=== PATIENT | female | born 1975 | race Caucasian/White ===

== ENCOUNTER 2022-04-15 08:09 | Outpatient (REF) | payer MEDICAID, SELFPAY ==
--- NOTE | 2022-04-15 08:15 | EEG_ITS ---
The waking background activity consists of a moderate voltage 9 hertz posterior alpha frequency that is seen symmetrically and attenuates well with eye opening, while low voltage fast frequencies predominantly anteriorly. Photic stimulation is without activation. Hyperventilation was omitted. No are identified. No focal, lateralizing, or paroxysmal discharges seen. IMPRESSION: This awaking electroencephalogram is within normal limits. MD TJ Rob/VIANEY / [id number]
== END 2022-04-15 08:10 | disposition home or self-care (01) ==
LOC: HO.NEURO 08:09
PROVIDERS: Visit Provider Internal Medicine
DX: R55 Syncope and collapse (principal)
CPT/HCPCS: 95816

== ENCOUNTER → 2022-07-03 08:53 | Outpatient (BNVA) | payer OTHER, SELFPAY | PROVIDERS: PCP Internal Medicine; Visit Provider Psychiatry & Neurology Neurology | DX: G43.909 Migraine, unspecified, not intractable, without status migrainosus (principal); G93.2 Benign intracranial hypertension; R55 Syncope and collapse | CPT/HCPCS: 99212 ==

== ENCOUNTER 2022-07-13 22:43 | Inpatient (IN) | payer OTHER, SELFPAY ==
[2022-07-13 23:06] VITALS: BP 139/84; PULSE 83; RESP 18; TEMP 37; O2SAT 98; BMI 34.7
[2022-07-13 23:43] LABS: MANUAL DIFF FLAG NO
[2022-07-13 23:45] LABS: Basophils Absolute Auto 0.1 X10*3/uL (0.0-0.2); Basophils Percent Auto 0.6 % (0-2); Eosinophils Absolute Auto 0.1 X10*3/uL (0.0-0.4); Eosinophils Percent Auto 0.9 % (0-4); Hematocrit 38.8 % (37.0-47.0); Hemoglobin 12.4 g/dl (12.0-16.0); Imm Gran Abs Auto 0.03 X10*3/uL (0.00-0.03); Imm Gran Pct Auto 0.2 % (0.0-0.4); Lymphocytes Absolute Auto 5.2 X10*3/uL (1.2-4.9); Lymphocytes Percent Auto 41.8 % (20-40); Mean Corpuscular Volume 81.3 fL (80.0-98.0); Mean Platelet Volume 9.5 fL (9.4-12.3); Monocytes Absolute Auto 0.7 X10*3/uL (0.1-1.2); Monocytes Percent Auto 5.9 % (2-11); Neutrophils Absolute Auto 6.2 x10*3/uL (2.0-8.3); Neutrophils Percent Auto 50.6 % (45-73); Platelet Count 337 X10*3/uL (160-400); Red Blood Count 4.77 X10*6/uL (4.20-5.50); Red Cell Distribution Width 17.3 % (11.0-16.0); SCAN SMEAR FLAG 1; White Blood Count 12.3 X10*3/uL (4.8-10.8)
[2022-07-13 23:56] LABS: COVID-19 Test Negative (Negative); IDNOW Serial# 6674DD1D
[2022-07-14] LABS: Alanine Aminotransferase 12 U/L (0-31); Albumin Level 4.2 g/dL (3.5-5.0); Alkaline Phosphatase 54 U/L (39-117); Amphetamine Screen Urine Not Detected (Not Detect); Anion Gap 13 (12-20); Aspartate Amino Transferase 18 U/L (5-31); Barbiturates, Urine Not Detected (Not Detect); Benzodiazepines Screen Urine Not Detected (Not Detect); Bilirubin Total 0.4 mg/dL (0.0-1.0); Blood Urea Nitrogen 6 mg/dL (9-16); Calcium 9.3 mg/dL (8.4-10.2); Cannabinoid Screen Urine Not Detected (Not Detect); Carbon Dioxide 27 mmol/L (22-29); Chloride 106 mmol/L (96-108); Cocaine Screen Urine POSITIVE (Not Detect); Creatinine Clr Calc Pharmacy 121.7; Estimated Glomerular Filt Rate > 60; Ethanol 149 mg/dL; Fentanyl, urine Not Detected (Not Detect); Glucose Random 94 mg/dL (60-115); Opiate Screen Urine Not Detected (Not Detect); Phencyclidine Screen Urine Not Detected (Not Detect); Potassium 4.3 mmol/L (3.3-5.1); Sodium 142 mmol/L (135-145); Total Protein 6.8 g/dL (6.5-8.0)
--- NOTE | 2022-07-14 | ECG_ITS ---
Test Reason : QT INTERVAL Blood Pressure : / mmHG Vent. Rate : 077 BPM Atrial Rate : 077 BPM P-R Int : 132 ms QRS Dur : 076 ms QT Int : 400 ms P-R-T Axes : 068 022 060 degrees QTc Int : 452 ms Normal sinus rhythm Normal ECG No previous ECGs available Referred By: Lloyd Greenwood Electronically Signed By:ANNALISE NAIDU
[2022-07-14 05:37] VITALS: BP 110/69; PULSE 87; RESP 16; TEMP 36.8; O2SAT 98
[2022-07-14 07:51] LABS: Appearance Urine Clear; Color Urine Yellow; Glucose Urine UA Negative (Negative); Leukocyte Esterase Urine Trace (Negative); Nitrite Urine Negative (Negative); UMIC TRIGGER UA YES; Urine Blood Small (1+) (Negative); Urine Ketones Negative (Negative); Urine Protein Negative (Neg-Trace)
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
[2022-07-14 08:09] LABS: Bacteria Urine None Seen (None Seen); Hyaline Casts Urine 0-2 /LPF (0-2); RBC Urine 0-2 /HPF (0-2); Squamous Epithelial Cell Urine 0-2 /HPF (0-2); WBC Urine 0-5 /HPF (0-5)
--- NOTE | 2022-07-14 11:58 | PHA.MEDREC ---
Pharmacy Consult ? Medication Reconciliation Pharmacy has completed the medication reconciliation. Pt had to be lead to remember names of meds but she was able to confirm what they were when I read claim history. She remembers getting dose of aimovig 2 weeks ago and states nurtec is every other day NEEDED.
--- NOTE | 2022-07-14 13:17 | MHC.RECOVSUP ---
Met with pt in [facility] to provide and review recovery resources. Pt had no other questions or concerns at this time.
[2022-07-14] MEDS: Nicotine Polacrilex 2 MG GUM BUCCAL (17:38)
[2022-07-14 20:35] VITALS: BP 138/89; PULSE 70; RESP 17; TEMP 37.1; O2SAT 98
[2022-07-14 22:20] VITALS: BP 130/74; PULSE 70; RESP 18; TEMP 36.7; O2SAT 100
[2022-07-14] MEDS: acetaZOLAMIDE 250 MG TABLET 500 MG PO (23:49)
[2022-07-14] MEDS: Thiamine HCL 100 MG TABLET PO (23:50)
[2022-07-14] MEDS: Gabapentin 300 MG CAPSULE PO (23:50)
[2022-07-14] MEDS: hydrOXYzine HCL 25 MG TABLET PO (23:51)
[2022-07-14] MEDS: Amitriptyline HCl 50 MG TABLET PO (23:51)
[2022-07-14] MEDS: lamoTRIgine 25 MG TABLET 50 MG PO (23:51)
[2022-07-14] MEDS: Cyclobenzaprine HCl 10 MG TABLET PO (23:51)
[2022-07-14] MEDS: Ferrous Sulfate 324 MG TABLET.DR PO (23:56)
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
[2022-07-15] MEDS: Acetaminophen 325 MG TABLET 650 MG PO (05:18)
[2022-07-15 05:36] LABS: Estimated Average Glucose 100 mg/dL; Hemoglobin A1c % 5.1 %
[2022-07-15 05:46] LABS: Alanine Aminotransferase 8 U/L (0-31); Albumin Level 3.3 g/dL (3.5-5.0); Alkaline Phosphatase 46 U/L (39-117); Anion Gap 11 (12-20); Aspartate Amino Transferase 12 U/L (5-31); Bilirubin Total 0.4 mg/dL (0.0-1.0); Blood Urea Nitrogen 11 mg/dL (9-16); Calcium 9.1 mg/dL (8.4-10.2); Carbon Dioxide 27 mmol/L (22-29); Chloride 109 mmol/L (96-108); Cholesterol 167 mg/dL; Creatinine Clr Calc Pharmacy 97.3; Estimated Glomerular Filt Rate > 60; Glucose Fasting 105 mg/dL (60-99); HDL Cholesterol 62 mg/dL; LDL Cholesterol Calculated 94 mg/dl; Sodium 143 mmol/L (135-145); Total Protein 5.3 g/dL (6.5-8.0); Triglycerides 55 mg/dL
[2022-07-15 06:15] LABS: Folate 4.9 ng/mL (> or = 4.0); Thyroid Stimulating Hormone 0.95 uIU/mL (0.32-4.0); Vitamin B12 446 pg/mL (200-900)
[2022-07-15 08:15] VITALS: BP 126/58; PULSE 71; RESP 20; TEMP 36.4; O2SAT 100
[2022-07-15] MEDS: LORazepam 1 MG TABLET PO ×2 (08:31→17:57)
[2022-07-15] MEDS: lamoTRIgine 25 MG TABLET 50 MG PO ×2 (08:32→22:11)
[2022-07-15] MEDS: lamoTRIgine 25 MG TABLET 150 MG PO (08:32)
[2022-07-15] MEDS: acetaZOLAMIDE 250 MG TABLET 500 MG PO ×2 (08:34→22:09)
[2022-07-15] MEDS: Thiamine HCL 100 MG TABLET PO (08:35)
[2022-07-15] MEDS: ARIPiprazole 2 MG TABLET PO (08:35)
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
[2022-07-15 11:38] VITALS: BP 114/55; PULSE 70; RESP 18; O2SAT 98
[2022-07-15 22:03] VITALS: BP 141/80; PULSE 78; TEMP 36.6; O2SAT 97
[2022-07-15] MEDS: Gabapentin 300 MG CAPSULE PO (22:09)
[2022-07-15] MEDS: Cyclobenzaprine HCl 10 MG TABLET PO (22:10)
[2022-07-15] MEDS: Amitriptyline HCl 50 MG TABLET PO (22:11)
[2022-07-15] MEDS: Ferrous Sulfate 324 MG TABLET.DR PO (22:12)
[2022-07-16 04:10] VITALS: BP 103/57; PULSE 88
[2022-07-16 08:33] VITALS: BP 109/74; PULSE 74; RESP 18; TEMP 36.2; O2SAT 99
[2022-07-16] MEDS: Thiamine HCL 100 MG TABLET PO (08:34)
[2022-07-16] MEDS: acetaZOLAMIDE 250 MG TABLET 500 MG PO ×2 (08:34→20:45)
[2022-07-16] MEDS: ARIPiprazole 2 MG TABLET PO (08:34)
[2022-07-16] MEDS: Acetaminophen 325 MG TABLET 650 MG PO ×2 (08:59→20:45)
[2022-07-16] MEDS: lamoTRIgine 25 MG TABLET 50 MG PO ×2 (09:00→20:46)
[2022-07-16] MEDS: lamoTRIgine 25 MG TABLET 150 MG PO (09:00)
[2022-07-16] MEDS: Milk of Magnesia 30 ML ORAL.SUSP PO (10:55)
[2022-07-16 18:00] VITALS: BP 122/74; PULSE 73; RESP 16; TEMP 36.6; O2SAT 99
[2022-07-16] MEDS: hydrOXYzine HCL 25 MG TABLET PO (20:44)
[2022-07-16] MEDS: Cyclobenzaprine HCl 10 MG TABLET PO (20:47)
[2022-07-16] MEDS: Amitriptyline HCl 50 MG TABLET PO (20:47)
[2022-07-16] MEDS: Ferrous Sulfate 324 MG TABLET.DR PO (20:47)
[2022-07-16] MEDS: Gabapentin 300 MG CAPSULE PO (20:47)
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
--- NOTE | 2022-07-16 22:44 | PC.NURSE ---
Joanna is admitted to [facility] for safety, observation and stabilization, diagnosis Bipolar disorder. This evening she is noted to be visible in the milieu, social with peers. Receptive to 1:1 engagement, reports I'm going home tomorrow. I'm nervous because my boyfriend keeps calling me. States she will be going to stay with family. CIWA score 6, denies SI/AVH. No behavior issues. POC as outlined, 15 min unit safety observation.
[2022-07-17 08:20] VITALS: BP 128/84; PULSE 84; TEMP 36.4; O2SAT 100
[2022-07-17] MEDS: lamoTRIgine 25 MG TABLET 150 MG PO (08:24)
[2022-07-17] MEDS: lamoTRIgine 25 MG TABLET 50 MG PO (08:25)
[2022-07-17] MEDS: acetaZOLAMIDE 250 MG TABLET 500 MG PO (08:25)
[2022-07-17] MEDS: hydrOXYzine HCL 25 MG TABLET PO (08:26)
[2022-07-17] MEDS: ARIPiprazole 2 MG TABLET PO (08:26)
[2022-07-17] MEDS: Thiamine HCL 100 MG TABLET PO (08:26)
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
== END 2022-07-17 10:43 | disposition home or self-care (01) | DRG 885 ==
LOC: HO.ED 07-14 16:29 → HO.PADLT16 07-14 22:02
PROVIDERS: Emergency Medicine Emergency Medical Services; Admitting Provider Social Worker; Emergency Provider Emergency Medicine; PCP Internal Medicine; Visit Provider Social Worker
DX: F33.1 Major depressive disorder, recurrent, moderate (principal); R45.851 Suicidal ideations; F17.210 Nicotine dependence, cigarettes, uncomplicated; Z20.822 Contact with and (suspected) exposure to COVID-19; Y90.6 Blood alcohol level of 120-199 mg/100 ml; F10.229 Alcohol dependence with intoxication, unspecified; Z71.6 Tobacco abuse counseling; Z88.2 Allergy status to sulfonamides; Z79.899 Other long term (current) drug therapy
CPT/HCPCS: 36415; 80053; 80061; 80307; 81001; 82607; 82746; 83036; 84443; 85025; 87635; 93005; 99285; S9485

== ENCOUNTER 2022-10-13 10:17 | Outpatient (REF) | payer OTHER, SELFPAY ==
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
== END 2022-10-13 10:18 | disposition home or self-care (01) ==
LOC: HO.XRAY 10:17
PROVIDERS: PCP Internal Medicine; Visit Provider Internal Medicine
DX: T14.90XA Injury, unspecified, initial encounter (principal); M54.9 Dorsalgia, unspecified; M54.2 Cervicalgia; V89.2XXA Person injured in unspecified motor-vehicle accident, traffic, initial encounter; Y93.9 Activity, unspecified; Y92.9 Unspecified place or not applicable; Y99.9 Unspecified external cause status
CPT/HCPCS: 72052; 72072; 72100

== ENCOUNTER 2022-10-16 10:27 | Outpatient (AMB) | payer OTHER, SELFPAY ==
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
[2022-10-16 10:35] VITALS: BP 118/78; PULSE 71; O2SAT 98; BMI 37.5
== END 2022-10-16 10:48 | disposition home or self-care (01) ==
PROVIDERS: Visit Provider Psychiatry & Neurology Neurology
DX: G43.909 Migraine, unspecified, not intractable, without status migrainosus (principal); G93.2 Benign intracranial hypertension
CPT/HCPCS: 99214

== ENCOUNTER → 2022-10-16 10:27 | Outpatient (BNVA) | payer MEDICAID, SELFPAY | PROVIDERS: Visit Provider Psychiatry & Neurology Neurology | DX: G43.909 Migraine, unspecified, not intractable, without status migrainosus (principal); G93.2 Benign intracranial hypertension; Z79.899 Other long term (current) drug therapy | CPT/HCPCS: 99212 ==

== ENCOUNTER 2023-02-12 08:22 | Outpatient (AMB) | payer OTHER, SELFPAY ==
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
[2023-02-12 08:34] VITALS: BP 132/76; PULSE 89; RESP 16; O2SAT 99; BMI 37.4
== END 2023-02-12 08:55 | disposition home or self-care (01) ==
PROVIDERS: PCP Internal Medicine; Visit Provider Psychiatry & Neurology Neurology
DX: G43.909 Migraine, unspecified, not intractable, without status migrainosus (principal); G93.2 Benign intracranial hypertension
CPT/HCPCS: 99214

== ENCOUNTER → 2023-02-12 08:22 | Outpatient (BNVA) | payer MEDICAID, SELFPAY | PROVIDERS: PCP Internal Medicine; Visit Provider Psychiatry & Neurology Neurology | DX: G43.909 Migraine, unspecified, not intractable, without status migrainosus (principal); G93.2 Benign intracranial hypertension | CPT/HCPCS: 99212 ==

== ENCOUNTER 2024-03-01 07:08 | Emergency (ER) | payer OTHER, SELFPAY ==
--- NOTE | ~2024-03-01 | CT_ITS ---
EXAMINATION: CT ABDOMEN AND PELVIS WITHOUT AND WITH CONTRAST CLINICAL INFORMATION: Abdominal pain, nausea and vomiting, anemia. COMPARISON: None available. TECHNIQUE: Multidetector volumetric imaging was performed of the abdomen and pelvis before and after the IV administration of 80 mL of Omnipaque 350 intravenous contrast. Sagittal and coronal reformatted images were obtained on the technologist's workstation. GI bleeding protocol acquisitions were obtained. This CT examination was performed using dose optimization techniques as appropriate, variously including the following: *Automated exposure control *Adjustment of mA and/or kV according to patient size (this includes techniques or standardized protocols for targeted exams where dose is matched to indication/reason for exam; i.e. extremities or head) *Use of iterative reconstruction technique DLP: 2127 mGy-cm FINDINGS: LUNG BASES: -Lung bases are clear. -There is a moderate sized type I hiatus hernia present LIVER, GALLBLADDER, AND BILIARY TREE: The liver is normal in size, shape, and attenuation. No focal hepatic lesion or biliary ductal dilatation is present. The gallbladder is unremarkable with no evidence of radiopaque gallstones, gallbladder wall thickening, or obvious pericholecystic inflammatory changes. PANCREAS: Unremarkable SPLEEN: Unremarkable ADRENAL GLANDS: Unremarkable KIDNEYS AND URETERS: The kidneys are normal in size, shape, and attenuation. No hydronephrosis, hydroureter, or calculi seen. No perinephric stranding. BLADDER: Unremarkable GASTROINTESTINAL TRACT: -There is been a gastric sleeve procedure. -There is mild thickening of the distal esophagus, and a moderate-sized type I hiatus hernia present. -There is no evidence of active or delayed bleeding from the colon or other part of the GI tract. -The small bowel is normal. -No evidence of appendicitis. -The colon and rectum are otherwise normal. ABDOMINAL WALL: No significant hernia is appreciated. LYMPH NODES: Normal VASCULAR: Unremarkable PELVIC VISCERA: Unremarkable OSSEOUS STRUCTURES: -No suspicious lytic or blastic bone lesions. -There are bone islands in the left medial ilium and right femoral neck. -Mild to moderate bilateral hip joint degenerative changes. -Mild spinal degenerative changes. CT/CT gi bleed abd pel wo/w IVcon IMPRESSION: 1. No evidence of acute or delayed bleeding in the GI tract on this examination. 2. No acute findings in the abdomen or pelvis. 3. Post gastric sleeve procedure with a moderate type I hiatal hernia. Mild thickening of the distal esophagus may indicate reflux esophagitis. 4. Additional ancillary findings as discussed. Electronically signed by: Bennie Ferrer MD 03/01/2024 12:07 PM [facility]
[2024-03-01 07:12] VITALS: BP 127/78; BP 133/78; PULSE 72; PULSE 83; RESP 18; TEMP 36.9; O2SAT 100; BMI 38.7
[2024-03-01 07:16] VITALS: BP 133/78; PULSE 83; RESP 18; TEMP 36.9; O2SAT 100
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
[2024-03-01] MEDS: 0.9 % Sodium Chloride 1,000 ML 999 ML IV (07:23)
[2024-03-01] MEDS: ondansetron HCL 4 MG/2 ML VIAL IVPUSH (07:25)
[2024-03-01 07:45] LABS: Appearance Urine Clear; Color Urine Yellow; Glucose Urine UA Negative (Negative); Leukocyte Esterase Urine Negative (Negative); Nitrite Urine Negative (Negative); PH 6.5 (5.0-9.0); Specific Gravity - Urine 1.025 (1.005-1.025); UMIC TRIGGER UACC YES; UPreg QC Valid YES; Urine Blood Small (1+) (Negative); Urine Ketones Trace mg/dL (Negative); Urine Pregnancy NEGATIVE (NEGATIVE); Urine Protein Trace mg/dL (Neg-Trace)
[2024-03-01 07:47] LABS: Bacteria Urine 3+ (None Seen); Hyaline Casts Urine 0-2 /LPF (0-2); WBC Urine 0-5 /HPF (0-5)
[2024-03-01 07:52] LABS: MANUAL DIFF FLAG NO
[2024-03-01 07:53] LABS: Basophils Percent Auto 0.3 % (0-2); Eosinophils Percent Auto 0.1 % (0-4); Hematocrit 28.2 % (37.0-47.0); Hemoglobin 8.8 g/dl (12.0-16.0); Imm Gran Abs Auto 0.04 X10*3/uL (0.00-0.03); Imm Gran Pct Auto 0.4 % (0.0-0.4); Lymphocytes Absolute Auto 1.6 X10*3/uL (1.2-4.9); Lymphocytes Percent Auto 16.2 % (20-40); Mean Corpuscular HGB Conc 31.2 g/dl (31.0-35.0); Mean Corpuscular Hemoglobin 23.2 pg (27.0-33.0); Mean Corpuscular Volume 74.4 fL (80.0-98.0); Mean Platelet Volume 9.4 fL (9.4-12.3); Monocytes Absolute Auto 0.6 X10*3/uL (0.1-1.2); Monocytes Percent Auto 5.7 % (2-11); Neutrophils Absolute Auto 7.5 x10*3/uL (2.0-8.3); Neutrophils Percent Auto 77.3 % (45-73); Platelet Count 372 X10*3/uL (160-400); Red Blood Count 3.79 X10*6/uL (4.20-5.50); Red Cell Distribution Width 18.5 % (11.0-16.0); White Blood Count 9.7 X10*3/uL (4.8-10.8)
[2024-03-01 08:04] LABS: Anion Gap 11 (12-20)
[2024-03-01 08:11] LABS: Albumin Level 3.8 g/dL (3.5-5.0); Aspartate Amino Transferase 18 U/L (5-31); Bilirubin Total 0.3 mg/dL (0.0-1.0); Blood Urea Nitrogen 8 mg/dL (9-16); Calcium 8.9 mg/dL (8.4-10.2); Carbon Dioxide 27 mmol/L (22-29); Chloride 106 mmol/L (96-108); Creatinine Clr Calc Pharmacy 117.6; Estimated Glomerular Filt Rate > 60; Glucose Random 104 mg/dL (60-115); Lipase 11 U/L (8-78); Sodium 140 mmol/L (135-145); Total Protein 6.4 g/dL (6.5-8.0)
[2024-03-01 08:24] LABS: Alanine Aminotransferase 14 U/L (0-31); Alkaline Phosphatase 41 U/L (39-117)
[2024-03-01 08:30] LABS: Influenza A PCR NEGATIVE (Negative); Influenza B PCR NEGATIVE (Negative); Resp Syncy Virus RNA Qual PCR NEGATIVE (Negative); SARS COV2 PCR INHOUSE NEGATIVE (Negative)
--- NOTE | 2024-03-01 09:16 | PC.NURSE ---
Pt to CT for imaging.
[2024-03-01] MEDS: iohexoL 350 MG/ML 75 ML INFUS..BTL 80 ML IV (09:35)
[2024-03-01] MEDS: Acetaminophen 325 MG TABLET 975 MG PO (11:19)
[2024-03-01 12:30] VITALS: BP 139/70; PULSE 78; RESP 16; O2SAT 99
[2024-03-01 12:39] VITALS: BP 139/70; PULSE 78; RESP 16; TEMP 36.9; O2SAT 99
[2024-03-01] MEDS: Prochlorperazine Edisylate 10 MG/2 ML VIAL IVPUSH (12:53)
== END 2024-03-01 13:14 | disposition home or self-care (01) ==
PROVIDERS: Emergency Provider Student in an Organized Health Care Education/Training Program
DX: K52.9 Noninfective gastroenteritis and colitis, unspecified (principal); D64.9 Anemia, unspecified; R11.2 Nausea with vomiting, unspecified; R10.2 Pelvic and perineal pain; Z79.899 Other long term (current) drug therapy; Z03.818 Encounter for observation for suspected exposure to other biological agents ruled out
CPT/HCPCS: 0241U; 36415; 74178; 80053; 81001; 81025; 83690; 85025; 96361; 96374; 96375; 99285; J0737; J2405; Q9967

== ENCOUNTER → 2024-03-01 07:58 | Outpatient (BNV) | payer OTHER, SELFPAY | PROVIDERS: Emergency Provider Student in an Organized Health Care Education/Training Program; Visit Provider Radiology Diagnostic Radiology | DX: R10.9 Unspecified abdominal pain (principal); R11.2 Nausea with vomiting, unspecified; D64.9 Anemia, unspecified | CPT/HCPCS: 74178 ==

== ENCOUNTER 2024-11-12 11:55 | Emergency (ER) | payer BC, SELFPAY ==
--- NOTE | ~2024-11-12 | XR_ITS ---
CLINICAL HISTORY: lac to L pointer finger pad Three-view left 2nd digit Comparison: None Findings: Intra-articular fracture of the dorsal aspect of the base of the 2nd distal phalanx. Minimal displacement. No dislocation. No significant loss of joint space or osteophytes. No erosions. No radiopaque foreign body. IMPRESSION: 1. No radiopaque foreign body. 2. Intra-articular fracture at the base of the 2nd distal phalanx. This document has been electronically signed by: Magda Horton MD on 11/12/2024 13:17:16
[2024-11-12 12:00] VITALS: BP 137/66; PULSE 87; RESP 18; TEMP 36.5; O2SAT 97; BMI 39.7
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
--- OUTSIDE RECORDS SUMMARY | 2024-11-12 12:30 | XMS_ITS | Clinical Summary ---
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 10/01/2024 9:17 AM EDT 10/01/2024 9:22 AM EDT us Anthony Tam MD LAB BLOOD ORDERABLES Final Re sult [facility] [address] [place] [address] * (ABNORMAL) CBC and differential (10/01/2024 9:17 AM EDT) WBC 6.97 4.00 - 11.00 K/uL [facility] RBC 4.00 4.00 - 5.20 M/uL [facility] HGB 11.8(L) 12.0 - 16.0 g/dL [facility] HCT 37.4 36.0 - 46.0 % [facility] PLT 307 150 - 450 K/uL [facility] MCV 93.5 80.0 - 100.0 fL [facility] MCH 29.5 27.0 - 31.0 pg [facility] MCHC 31.6(L) 32.0 - 36.0 g/dL [facility] RDW 15.3(H) 11.5 - 14.5 % [facility] MPV 10.2 8.4 - 12.0 fL [facility] NRBC 0.00 0.00 /100 WBCs [facility] ABSOLUTE NRBC 0.00 0.00 K/uL [facility] DIFF METHOD Auto [facility] NEUTS 52.5 48.0 - 76.0 % [facility] LYMPHS 36.3 18.0 - 41.0 % [facility] MONOS 8.3 4.0 - 11.0 % [facility] EOS 1.9 0.0 - 5.0 % [facility] BASOS 0.7 0.0 - 1.5 % [facility] Granulocytes, immature (%) 0.3 0.0 - 0.9 % [facility] ABSOLUTE NEUTS 3.66 1.92 - 7.60 K/uL [facility] ABSOLUTE LYMPHS 2.53 0.72 - 4.10 K/uL [facility] ABSOLUTE MONOS 0.58 0.16 - 1.10 K/uL [facility] ABSOLUTE EOS 0.13 0.00 - 0.50 K/uL [facility] ABSOLUTE BASOS 0.05 0.00 - 0.15 K/uL [facility] Granulocytes, immature 0.02 0.00 - 0.09 K/uL [facility] Blood 10/01/2024 9:17 AM EDT 10/01/2024 9:22 AM EDT us Anthony Tam MD LAB BLOOD ORDERABLES Final Re sult Performing Organization Address City/[facility]/ZIP Co de Phone Number [address] [address] * Free T4 (10/01/2024 9:17 AM EDT) FREE T4 1.0 0.9 - 1.7 ng/dL [facility] Blood 10/01/2024 9:17 AM EDT 10/01/2024 9:22 AM EDT us Anthony Tam MD LAB BLOOD ORDERABLES Final Re sult Performing Organization Address [facility] Co de Phone Number [address] [address] * Magnesium (10/01/2024 9:17 AM EDT) MAGNESIUM 2.0 1.6 - 2.6 mg/dL [facility] Blood 10/01/2024 9:17 AM EDT 10/01/2024 9:22 AM EDT us Anthony Tam MD LAB BLOOD ORDERABLES Final Re sult Performing Organization Address [facility] Co de Phone Number [address] [address] * Hemoglobin A1c (10/01/2024 9:17 AM EDT) HEMOGLOBIN A1C 5.0 4.3 - 5.8 % [facility] Blood 10/01/2024 9:17 AM EDT 10/01/2024 9:22 AM EDT us Anthony Tam MD LAB BLOOD ORDERABLES Final Re sult Performing Organization Address [facility]/ZIP Co de Phone Number [address] [address] * (ABNORMAL) Folate (10/01/2024 9:17 AM EDT) FOLIC ACID 4.1(L) 4.2 - 19.9 ng/mL [facility] Blood 10/01/2024 9:17 AM EDT 10/01/2024 9:22 AM EDT us Anthony Tam MD LAB BLOOD ORDERABLES Final Re sult Performing Organization Address [facility] Co de Phone Number [address] [address] * Ferritin (10/01/2024 9:17 AM EDT) FERRITIN 27 13 - 150 ug/L [facility] Blood 10/01/2024 9:17 AM EDT 10/01/2024 9:22 AM EDT us Anthony Tam MD LAB BLOOD ORDERABLES Final Re sult Performing Organization Address [facility]/ZIP Co de Phone Number [address] [address] * Vitamin B12 (10/01/2024 9:17 AM EDT) VITAMIN B12 808 232 - 1,245 pg/mL [facility] Blood 10/01/2024 9:17 AM EDT 10/01/2024 9:22 AM EDT us Anthony Tam MD LAB BLOOD ORDERABLES Final Re sult [address] [address] * (ABNORMAL) Lipid panel (10/01/2024 9:17 AM EDT) HDL 84 mg/dL [facility] Comment: Interpretation <40 mg/dL: Low HDL cholesterol (major risk factor for CHD) Greater than or equal to 60 mg/dL: High HDL cholesterol ( negative risk factor for CHD) HDL - cholesterol is affected by a number of factors, e.g. smoking, excerise, hormones, sex and age. CHOLESTEROL 212 0 - 240 mg/dL [facility] TRIGLYCERIDES 156 30 - 160 mg/dL [facility] LDL 97 50 - 129 mg/dL [facility] Comment: LDL levels in terms of risk for coronary heart disease: <100 mg/dL: Optimal 100-129 mg/dL: Near or above optimal 130-159 mg/dL: Borderline high 160-189 mg/dL: High >190 mg/dL: Very High CARDIAC RISK RATIO 2.5(L) 3.3 - 4.4 [facility] Blood 10/01/2024 9:17 AM EDT 10/01/2024 9:22 AM EDT us Anthony Tam MD LAB BLOOD ORDERABLES Final Re sult Performing Organization Address [facility] Co de Phone Number [address] [address] * BI MAMMOGRAM SCREENING WITH TOMOSYNTHESIS WITH CAD (BILATERAL) (02/16/2023 2:22 PM EST) Anatomical Region Laterality Modality Breast Left, Breast Right, Breast Bilateral Bila teral Mammography 02/19/2023 8:21 AM EST Impressions 02/19/2023 8:27 AM EST BILATERAL BREASTS: No evidence of malignancy. Normal interval follow-up is recommended. BI-RADS: BI-RADS CATEGORY: 2 - Benign finding. DENSITY: The breast tissue is almost entirely fat. Narrative 02/19/2023 8:27 AM EST History: Breast cancer screening. STUDY: Bilateral screening mammography with tomosynthesis and CAD TECHNIQUE: Bilateral full-field digital screening mammography is obtained and read in conjunction with computer-aided detection. Tomosynthesis as well as 2-D C view imaging were obtained. COMPARISON: 02/14/2022 through 05/28/2017. FINDINGS: Breast tissue is mostly fatty replaced. There are a few scattered benign calcifications bilaterally. No suspicious interval change. No suspicious mass, concerning group of calcifications or suspicious asymmetry identified. Procedure Note Simone Greer MD - 02/19/2023 History: Breast cancer screening. STUDY: Bilateral screening mammography with tomosynthesis and CAD TECHNIQUE: Bilateral full-field digital screening mammography is obtainedand read in conjunction with computer-aided detection. Tomosynthesis aswell as 2-D C view imaging were obtained. COMPARISON: 02/14/2022 through 05/28/2017. FINDINGS: Breast tissue is mostly fatty replaced. There are a fewscattered benign calcifications bilaterally. No suspicious intervalchange. No suspicious mass, concerning group of calcifications orsuspicious asymmetry identified. IMPRESSION: BILATERAL BREASTS: No evidence of malignancy. Normal interval follow-up isrecommended. BI-RADS: BI-RADS CATEGORY: 2 - Benign finding. DENSITY: The breast tissue is almost entirely fat. Anthony Tam MD IMG MG EXAMS Final Result * Pap Smear (08/14/2021 12:00 AM EDT) 08/14/2021 08/15/2021 8:5 1 AM EDT Narrative SEE NARRATIVE - 08/20/2021 3:57 PM EDT [address] [address] Steam Meter Reader: Vanessa Troncoso MD MACHINE WORKER Cytology Report FINAL DIAGNOSIS A. PAP SMEAR (SUREPATH) CE: SPECIMEN ADEQUACY: Satisfactory for evaluation; transformation zone absent/insufficient. INTERPRETATION: NEGATIVE FOR INTRAEPITHELIAL LESION OR MALIGNANCY. Electronically Signed Out By: Patrick Toure CT(ASCP) Evi Vivar, BLAS(ASCP) The Pap test is a screening test primarily for squamous cancers and precursors and has associated false-negative and false-positive results. New technologies such as liquid-based preparations may decrease but will not eliminate all false-negative results. Regular sampling and follow-up of unexplained clinical signs and symptoms are recommended to minimize false negative results. PROCEDURES/ADDENDA HPV Testing (Requested) Ordered Date: 08/15/2021 A. PAP SMEAR (SUREPATH) CE: Human Papilloma Virus Test Negative for high-risk human papillomavirus types 16, 18, 45 and the Other high risk probe set (Includes 31, 33, 35, 39, 51, 52, 56, 58, 59, 66, 68) by gauzz Onclarity HR-HPV analysis. Clinical correlation is advised. This HPV test was performed at [facility], [address] [place] [address]. This test has been FDA approved for SurePath cervical cytology specimens. The accuracy and precision of this test for all other specimen sources has been verified in the Cytopathology Laboratory of the [facility] and has not been cleared or approved by the U.S. Food and Drug Administration. Clinical correlation is advised. CLINICAL HISTORY Date of Last Menstrual Period: 07-31-2021 Infection History: HPV: OTHER HIGH RISK, 2020 Other Clinical Conditions: Screening Pap SPECIMEN SOURCE A: PAP SMEAR (SUREPATH) CE Patient Name: JOVON MENODZA : 1975 (Age: 46) Sex: F Institution: [facility] Location: [facility] Date of Collection: 08/14/2021 Date of Reported: 08/20/2021 15:57 Results to: Gomez Cunha MD, BS us Gomez Cunha MD CYTOLOGY ORDERABLES Final Res ult SEE NARRATIVE * Hepatitis C antibody, qualitative (06/29/2020 2:43 PM EDT) HCV NON-REACTIV E NON-REACTI VE [facility] Blood 06/29/2020 2:43 PM EDT 06/29/2020 2:45 PM EDT Gomez Cunha MD LAB BLOOD ORDERABLES Final Re sult [facility] [address] [place] [address] from Last 3 Months or Most Recently Relevant to Health Maintenance Insurance [place] PPO INDEMNITY PPO INDEMNITY [facility] PPO INDEMNITY [employer]IM [employer] [facility] Care Teams Medicine Technologist Relationship Specialty Start Date End Date Anthony Tam MD [address] [place] [address] [email or web address] PCP - General Internal Medicine 11/24/19 Roge Car DO [address] [place] [address] [email or web address] Primary Oncologist Hematology and Oncology 03/24/18 Gomez Cunha MD [address] [place] [address], [address] [place] [address] ([email or web address]) [email or web address] Obstetrics and Gynecology 01/26/23 Additional Source Comments The information contained in this document represents components of the legal health record. It is not the complete legal health record.[facility]
--- OUTSIDE RECORDS SUMMARY | 2024-11-12 12:30 | XMS_ITS | Encounter Summary ---
Author Organization [facility] Address [address] [place] [address] [place] [address] Phone Care Team Providers Care Manager Concrete Name Role Phone Roge Car DO Unavailable [phone] Anthony Tam MD Primary Care Provider [phone] Gomez Cunha MD Unavailable [phone] Encounter Details Date Type Department Care Team (Late st Contact Info) Description 12/15/2022 Procedure Pass [facility], [address] [address] Social History Tobacco Use Types Packs/Day Years Used Date Smoking Tobacco: Every Day Cigarettes 0.3 15 Smokeless Tobacco: Never Comments:5 cigarettes daily (noted 07/22/22) Alcohol Use Standard Drinks/Week Comments Yes 2 (1 standard drink = 0.6 oz pur e alcohol) 1-2 drinks, 2-3 x week Child or Family Care Answer Date Record ed Do you have problems with on e of the following making it difficult for you to work, study, or receive health care? No 08/09/2020 Education Answer Date Recorded Are you interested in more education? Not on albertina e 08/15/2022 Are you concerned about learning? Not on file 08/15/2022 No 08/15/2022 No 08/15/2022 Food Answer Date Recorded Within the past 6 months we worried whether our food would run out before we got money to buy more. Never True 08/09/2020 Within the past 6 months the food we bought just didn't last and we didn't have enough money to get more. Never True Residential Stability Answer Date Recor ded What is your housing situation today? I have lidia mars 08/09/2020 How many times have you move d in the past 12 months? Zero (I did not move) 08/09/2020 06 Are you worried that in t he next 2 months, you may not have your own housing to live in? No 08/09/2020 Paying for Meds Answer Date Recorded Do you have trouble paying for medicines? No 08/09/2020 Paying Utility Bills Answer Date Record ed Do you have trouble paying your heating or elect ricity bill? No 08/09/2020 Transportation Answer Date Recorded Has the lack of transportati on kept you from medical appointments or from getting medications? No 08/09/2020 Unemployment Answer Date Recorded Are you currently unemployed or working on a part-time or temporary basis, and looking for work? No 08/09/2020 Digital Access Answer Date Recorded No 08/04/2022 No 08/04/2022 Reliable internet access at home? Not on file 08/04/2022 Device with a working camera? Not on file Comments No Sex and Gender Information Value Date Recorded Sex Assigned at Female 04/05/2017 1:36 PM EST Legal Sex Female 9:27 PM EDT Gender Identity Female 04/05/2017 1:36 PM EST Sexual Orientation Straight 04/05/2017 1: 36 PM EST documented as of this encounter Plan of Treatment Upcoming Encounters Date Type Department Care Team (Late st Contact Info) Description 01/03/2025 3:30 PM EDT Office Visit [facility] [address] [place] [address] 3rd Floor, [address] [place] [address] Vanessa Lomax, BENIGNO 22 [facility], [address] [place] [address] 01/09/2025 3:30 PM EST Office Visit [facility] [address] [place] [address] Anthony Tam MD [address] [place] [address] [email or web address] documented as of this encounter Visit Diagnoses Not on filedocumented in this encounter Additional Health Concerns Assessment Noted Time PHQ-2 Depression Total Score: 0 01/27/20 23 2:24 PM EST documented as of this encounter Care Teams Manager Concrete Relationship Specialty Start Date End Date Anthony Tam MD [address] [place] [address] [email or web address] PCP - General Internal Medicine 11/24/19 Roge Car DO [address] [place] [id number] [email or web address] Primary Oncologist Hematology and Oncology 03/24/18 Gomez Cunha MD [address] [place] [address] [email or web address] Obstetrics and Gynecology 01/26/23 documented as of this encounter Additional Source Comments The information contained in this document represents components of the legal health record. It is not the complete legal health record.[facility]
--- OUTSIDE RECORDS SUMMARY | 2024-11-12 12:30 | XMS_ITS | Encounter Summary ---
Author Organization [facility] Address [address] [place] [address] Phone Care Team Providers Care Hydraulic Press In Operator Name Role Phone Joceline Roge Ji DO Unavailable [phone] Anthony Tam MD Primary Care Provider Gomez Cunha MD Unavailable [phone] Encounter Details Date Type Department Care Team (Latest Contact Info) Description 12/15/2022 Transcribe Orders Virtual Department [address] [place] [address] Anthony Tam MD [address] [place] [address] [email or web address] Breast screening (Primary Dx) Social History Tobacco Use Types Packs/Day Years Used Date Smoking Tobacco: Every Day Cigarettes 0.3 15 Smokeless Tobacco: Never Comments:5 cigarettes daily (noted 07/22/22) Alcohol Use Standard Drinks/Week Comments Yes 4 (1 standard drink = 0.6 oz pur e alcohol) Child or Family Care Answer Date Record [...] your housing situation today? I have lidia sing 08/09/2020 How many times have you move [...] Description 01/03/2025 3:30 PM EDT Office Visit [facility] [address] [place] [address] 3rd Floor, [address] [place] [address] Vanessa Lomax, BENIGNO 22 [facility], [address] [place] [address] 01/09/2025 3:30 PM EST Office Visit [facility] [address] [place] [address] Anthony Tam MD [address] [place] [address] [email or web address] documented as of this encounter Results * BI MAMMOGRAM SCREENING WITH TOMOSYNTHESIS WITH [...] Tam MD IMG MG EXAMS Final Result documented in this encounter Visit Diagnoses Diagnosis Breast screening- Primary Breast screening, unspecified Breast screening Breast screening, unspecified documented in this encounter Additional Health Concerns Assessment Noted Time PHQ-2 Depression Total Score: 0 02/11/20 22 7:59 PM EST documented as of this encounter Care Teams Hydraulic Press In Operator Relationship Specialty Start Date End Date Anthony Tam MD [address] [place] [address] [email or web address] PCP - General Internal Medicine 11/24/19 Roge Car DO [address] [place] [address] [email or web address] Primary Oncologist Hematology and Oncology 03/24/18 Gomez Cunha MD [address] [place] [address] [address] [place] [address] [email or web address] Obstetrics and Gynecology 01/26/23 documented as of this encounter Additional Source Comments The information contained in this document represents components of the legal health record. It is not the complete legal health record.[facility]
--- OUTSIDE RECORDS SUMMARY | 2024-11-12 12:30 | XMS_ITS | Encounter Summary ---
Author Organization [facility] Address [address] [place] [address] Phone Care Team Providers Care Home Stereo Equipment Installer Name Role Phone Anthony Tam MD Primary Care Provider [phone] Anthony Tam MD Unavailable [phone] Roge Car DO Unavailable [phone] Anthony Tam MD Unavailable [phone] Anthony Tam MD Primary Care Provider [phone] Gomez Cunha MD Unavailable [phone] Encounter Details Date Type Department Care Team (Late st Contact Info) Description 04/08/2017 Procedure Pass [facility], [address] [address] Social History Tobacco Use Types Packs/Day Years Used Date Smoking Tobacco: Some Days Cigarettes 0.3 15 Smokeless Tobacco: Never Alcohol Use Standard Drinks/Week Comments No 0 (1 standard drink = 0.6 oz pur e alcohol) Comments Unknown Sex and Gender Information Value Date Recorded Sex Assigned at Female 04/05/2017 1:36 PM EST Legal Sex Female 9:27 PM EDT Gender Identity Female 04/05/2017 1:36 PM EST Sexual Orientation Straight 04/05/2017 1: 36 PM EST documented as of this encounter Plan of Treatment Upcoming Encounters Date Type Department Care Team (Late st Contact Info) Description 01/03/2025 3:30 PM EDT Office Visit [facility] [address] [place] [address] 3rd Floor, [address] [place] [address] Vanessa Lomax, BENIGNO 22 [facility], [address] [place] [address] 01/09/2025 3:30 PM EST Office Visit [facility] [address] [place], [place] [phone] Anthony Tam MD [address] [place], [place] [id number] documented as of this encounter Visit Diagnoses Not on filedocumented in this encounter Additional Health Concerns Infection Onset Date Last Indicated Resolved Time CoV-Risk 07/19/2020 07/19/2020 07/29/2020 1:24 AM EDT Assessment Noted Time PHQ-2 Depression Total Score: 0 01/20/20 17 11:33 AM EST documented as of this encounter Care Teams Home Stereo Equipment Installer Relationship Specialty Start Date End Date Anthony Tam MD [address] [place] [address] PCP - General Internal Medicine 01/19/17 11/23/19 Anthony Tam MD [address] [place] [address] PCP - General Internal Medicine 11/24/19 Anthony Tam MD [address] [place] [address] Insurance Assigned Provider 05/02/17 01/09/18 Roge Car DO [address] [place] [address] [email or web address] Primary Oncologist Hematology and Oncology 03/24/18 Anthony Tam MD [address] [place] [address] [email or web address] Insurance Assigned Provider 06/12/18 11/15/22 Gomez Cunha MD [address] [place] [address] [address] [place] [address] [email or web address] Obstetrics and Gynecology 01/26/23 documented as of this encounter Additional Source Comments The information contained in this document represents components of the legal health record. It is not the complete legal health record.[facility]
--- OUTSIDE RECORDS SUMMARY | 2024-11-12 12:30 | XMS_ITS | Encounter Summary ---
Author Organization [facility] Address [address] [place] [address] [place] [address] Phone Care Team Providers Care Horseback Riding Instructor Name Role Phone Joceline Roge Ji DO Unavailable [phone] Anthony Tam MD Primary Care Provider [phone] Gomez Cunha MD Unavailable [phone] Encounter Details Date Type Department Care Team (Late st Contact Info) Description 08/05/2024 Procedure Pass [facility] [address] [place], [place] [phone] Social History Tobacco Use Types Packs/Day Years Used Date Smoking Tobacco: Every Day Cigarettes 0.3 27.7 Started: 1996 Smokeless Tobacco: Never Comments:8 cigarettes QD-not ed 08/05/24 Alcohol Use Standard Drinks/Week Comments Yes [...] high school, GED, job training, learning the Polish language, technical skills, or developing parenting skills)? [...] learning more? Yes 01/26/2023 Our hospital collaborates [facility] community organizations that help patients sign [...] Description 01/03/2025 3:30 PM EDT Office Visit [facility] [address] [place] [address] [address]rd Floor, [address] [place] [address] Vanessa Lomax, BENIGNO [address] [address] 01/09/2025 3:30 PM EST Office Visit [facility] [address] [place] [address] Anthony Tam MD [address] [place] [address] documented as of this encounter Visit Diagnoses Not on filedocumented in this encounter Additional Health Concerns Assessment Noted Time PHQ-9 Depression Total Score: 17 025 3:06 PM EST PHQ-2 Depression Total Score: 0 08/03/19 25 2:47 PM EDT documented as of this encounter Care Teams Horseback Riding Instructor Relationship Specialty Start Date End Date Anthony Tam MD [address] [place] [address] [email or web address] PCP - General Internal Medicine 11/24/19 Roge Car DO [address] [place] [address] [email or web address] Primary Oncologist Hematology and Oncology 03/24/18 Gomez Cunha MD [address] [place] [address] [address] [place] [address] [email or web address] Obstetrics and Gynecology 01/26/23 documented as of this encounter Additional Source Comments The information contained in this document represents components of the legal health record. It is not the complete legal health record.[facility]
--- OUTSIDE RECORDS SUMMARY | 2024-11-12 12:30 | XMS_ITS | Encounter Summary ---
Author Organization [facility] Address [address] [place] [address] Phone Care Team Providers Care Electronic Instrument Trades Worker Name Role Phone Anthony Tam MD Primary Care Provider [phone] Anthony Tam MD Unavailable [phone] Roge Car DO Unavailable [phone] Anthony Tam MD Unavailable [phone] Anthony Tam MD Primary Care Provider [phone] Gomez Cunha MD Unavailable [phone] Encounter Details Date Type Department Care Team (Late st Contact Info) Description 04/17/2017 Ancillary Orders [facility] Internal Medicine [address] [place], [place] [phone] Anthony Tam MD [address] [place], [place] [id number] [email or web address] Breast screening Social History Tobacco Use Types Packs/Day Years [...] Description 01/03/2025 3:30 PM EDT Office Visit [facility] [address] [facility] 3rd Floor, [address] [place], [place] [phone] Vanessa Lomax DNP [address] [facility], [address] [place], [place] [phone] 01/09/2025 3:30 PM EST Office Visit [facility] Internal Medicine [address] [place], [place] [phone] Anthony Tam MD [address] [place], [place] [phone] documented as of this encounter Results * BI MAMMOGRAM SCREENING WITH TOMOSYNTHESIS WITH CAD (BILATERAL) (05/28/2017 9:27 AM EDT) Anatomical Region Laterality Modality Breast Left, Breast Right, Breast Bilateral Bila teral Mammography 05/28/2017 9:44 AM EDT Impressions 05/28/2017 9:46 AM EDT No mammographic evidence of malignancy. BI-RADS CATEGORY: 1 - Negative. DENSITY: The breast tissue is almost entirely fat. POS - [id number] Narrative 05/28/2017 9:46 AM EDT Standard digital full-field 2-D C view and two-plane tomographic imaging was performed with utilization of computer-aided detection. This is the patient's baseline study. The breasts are almost entirely fatty. The stromal markings are relatively symmetric in appearance and distribution and no dominant spiculated mass, suspicious clustered microcalcifications, or focal zone of pathologic skin thickening or retraction are identified. Procedure Note Armaan Mcqueen MD - 05/28/2017 Standard digital full-field 2-D C view and two-plane tomographic imagingwas performed with utilization of computer-aided detection. This is thepatient's baseline study. The breasts are almost entirely fatty. The stromal markings are relativelysymmetric in appearance and distribution and no dominant spiculated mass,suspicious clustered microcalcifications, or focal zone of pathologic skinthickening or retraction are identified. IMPRESSION: No mammographic evidence of malignancy. BI-RADS CATEGORY: 1 - Negative. DENSITY: The breast tissue is almost entirely fat. POS - [id number] Anthony Tam MD IMG MG EXAMS Final Result documented in this encounter Visit Diagnoses Diagnosis Breast screening Breast screening, unspecified Breast screening Breast screening, unspecified documented in this encounter Additional Health Concerns Infection Onset Date Last Indicated Resolved Time CoV-Risk 07/19/2020 07/19/2020 07/29/2020 1:24 AM EDT Assessment Noted Time PHQ-2 Depression Total Score: 0 01/20/20 17 11:33 AM EST documented as of this encounter Care Teams Electronic Instrument Trades Worker Relationship Specialty Start Date End Date Anthony Tam MD [address] [place] [address] PCP - General Internal Medicine 01/19/17 11/23/19 Anthony Tam MD [address] [place] [address] PCP - General Internal Medicine 11/24/19 Anthony Tam MD [address] [place] [address] Insurance Assigned Provider 05/02/17 01/09/18 Roge Car DO [address] [place] [address] [email or web address] Primary Oncologist Hematology and Oncology 03/24/18 Anthony Tam MD [address] [place] [address] [email or web address] Insurance Assigned Provider 06/12/18 11/15/22 Gomez Cunha MD [address] [place] [address], [facility] [address] [place] [address] [email or web address] Obstetrics and Gynecology 01/26/23 documented as of this encounter Additional Source Comments The information contained in this document represents components of the legal health record. It is not the complete legal health record.[facility]
--- OUTSIDE RECORDS SUMMARY | 2024-11-12 12:30 | XMS_ITS | Encounter Summary ---
Author Organization [facility] Address [address] [place] [address] Phone Care Team Providers Care Auto Brake Mechanic Name Role Phone Anthony Tam MD Primary Care Provider [phone] Anthony Tam MD Unavailable [phone] Roge Car DO Unavailable [phone] Anthony Tam MD Unavailable [phone] Anthony Tam MD Primary Care Provider [phone] Gomez Cunha MD Unavailable [phone] Reason for Referral * MRI/CAT Scan - Closed Specialty Diagnoses / Procedures Referred By Contac t Referred To Contact Radiology Diagnoses Dizziness Concussion without loss of consciousness, initial encounter Other complicated headache syndrome Procedures MRI Brain Anthony Tam MD Phone: tel: fax: [email or web address] Referral ID Status Reason Start Date Expiration Date Visits Re quested Visits Authorized [id number] Closed 04/08/2017 06/06/2017 1 1 Encounter Details Date Type Department Care Team (Latest Contact Info) Description 04/08/2017 Ancillary Orders [facility] Internal Medicine [address] [place] [address] Anthony Tam MD [address] [place] [address] [email or web address] Dizziness; Concussion without loss of consciousness, initial encounter; Other complicated headache syndrome Social History Tobacco Use Types Packs/Day Years [...] Description 01/03/2025 3:30 PM EDT Office Visit [facility] [address] [place] [address] 3rd Floor, [address] [place] [address] Vanessa Lomax, BENIGNO 22 [facility], [address] [address] 01/09/2025 3:30 PM EST Office Visit [facility] Internal Medicine [address] [place] [address] Anthony Tam MD [address] [place] [address] [email or web address] documented as of this encounter Results * MRI BRAIN WITHOUT CONTRAST (04/17/2017 11:49 AM EST) Anatomical Region Laterality Modality Head Magnetic Resonan ce 04/17/2017 12:2 8 PM EST Impressions 04/17/2017 1:04 PM EST No acute intracranial hemorrhage, mass, or infarction is detected. Mild cerebellar tonsillar ectopia again noted. POS - [id number] Edited by: Joanna Sahu on 04/17/2017 12:51 PM Narrative 04/17/2017 1:04 PM EST HISTORY: Closed head injury with pain. Concussion. Chiari malformation. Dizziness. COMPARISON: CT 04/02/2017. MRI 05/23/2014 TECHNIQUE: Exam performed on a 1.5 Natali high-field MRI scanner. Axial T1, T2, T2*, T2 FLAIR and diffusion-weighted imaging with ADC map, sagittal T1 sequences were obtained. Axial posterior fossa cisternogram also obtained. FINDINGS: No abnormal intra or extra-axial blood or fluid collection, mass, or mass effect is identified. Sulci and ventricles appear within the range of normal. The minor cerebellar tonsillar ectopia previously noted is again seen. Pituitary not enlarged. No areas of restricted diffusion. No areas of abnormal susceptibility effect to suggest otherwise occult hemorrhage. No areas of restricted diffusion. No significant white matter lesions. No CP angle mass. No fluid in the paranasal sinuses. Mastoids free of fluid intensity. There appear to be preserved flow voids in the major intracranial arteries and veins. Procedure Note Lavon Cruz MD - 04/17/2017 HISTORY: Closed head injury with pain. Concussion. Chiari malformation.Dizziness. COMPARISON: CT 04/02/2017. MRI 05/23/2014 TECHNIQUE: Exam performed on a 1.5 Natali high-field MRI scanner. AxialT1, T2, T2*, T2 FLAIR and diffusion-weighted imaging with ADC map,sagittal T1 sequences were obtained. Axial posterior fossa cisternogramalso obtained. FINDINGS: No abnormal intra or extra-axial blood or fluid collection, mass, or masseffect is identified. Sulci and ventricles appear within the range ofnormal. The minor cerebellar tonsillar ectopia previously noted is againseen. Pituitary not enlarged. No areas of restricted diffusion. No areasof abnormal susceptibility effect to suggest otherwise occult hemorrhage.No areas of restricted diffusion. No significant white matter lesions. NoCP angle mass. No fluid in the paranasal sinuses. Mastoids free of fluidintensity. There appear to be preserved flow voids in the majorintracranial arteries and veins. IMPRESSION: No acute intracranial hemorrhage, mass, or infarction is detected. Mildcerebellar tonsillar ectopia again noted. POS - [id number] Edited by: Joanna Sahu on 04/17/2017 12:51 PM Anthony Tam MD IMG MR HEAD/NECK Final Result documented in this encounter Visit Diagnoses Diagnosis Dizziness Dizziness and giddiness Concussion without loss of consciousness, initial encounter Other complicated headache syndrome Dizziness Dizziness and giddiness Concussion without loss of consciousness, initial encounter Other complicated headache syndrome documented in this encounter Additional Health Concerns Infection Onset Date Last Indicated Resolved Time CoV-Risk 07/19/2020 07/19/2020 07/29/2020 1:24 AM EDT Assessment Noted Time PHQ-2 Depression Total Score: 0 01/20/20 11:33 AM EST documented as of this encounter Care Teams Auto Brake Mechanic Relationship Specialty Start Date End Date Anthony Tam MD [address] [place] [address] [email or web address] PCP - General Internal Medicine 01/19/17 11/23/19 Anthony Tam MD [address] [place] [address] [email or web address] PCP - General Internal Medicine 11/24/19 Anthony Tam MD [address] [place] [address] [email or web address] Insurance Assigned Provider 05/02/17 01/09/18 Roge Car DO [address] [place] [address] [email or web address] Primary Oncologist Hematology and Oncology 03/24/18 Anthony Tam MD [address] [place] [address] [email or web address] Insurance Assigned Provider 06/12/18 11/15/22 Gomez Cunha MD [address] [place] [address], [facility] [address] [place] [address] [email or web address] Obstetrics and Gynecology 01/26/23 documented as of this encounter Additional Source Comments The information contained in this document represents components of the legal health record. It is not the complete legal health record.[facility]
--- OUTSIDE RECORDS SUMMARY | 2024-11-12 12:30 | XMS_ITS | Encounter Summary ---
Author Organization [facility] Address [address] [place] [address] [place] [address] Phone Care Team Providers Care Channel Supervisor Name Role Phone Roge Car DO Unavailable Anthony Tam MD Unavailable Anthony Tam MD Primary Care Provider [phone] Gomez Cunha MD Unavailable [phone] Encounter Details Date Type Department Care Team (Late st Contact Info) Description 01/22/2022 Procedure Pass [address] [address] Social History Tobacco Use Types Packs/Day Years Used Date Smoking Tobacco: Every Day Cigarettes 0.3 15 Smokeless Tobacco: Never Comments:6-8 cigarettes amanda y (noted 02/13/22) Alcohol Use Standard Drinks/Week Comments Yes 4 [...] high school, GED, job training, learning the Estonian language, technical skills, or developing parenting skills)? No 08/09/2020 Food Answer Date Recorded Within the past [...] basis, and looking for work? No 08/09/2020 Comments No Sex and Gender Information Value [...] Description 01/03/2025 3:30 PM EDT Office Visit [facility] [address] [place] [address] 3rd Floor, [address] [place] [address] Vanessa Lomax, BENIGNO 22 [facility], [address] [place] [address] [email or web address] 01/09/2025 3:30 PM EST Office Visit [facility] Internal Medicine [address] [place] [address] Anthony Tam MD [address] [place] [address] [email or web address] documented as of this encounter Visit Diagnoses Not on filedocumented in this encounter Additional Health Concerns Assessment Noted Time PHQ-2 Depression Total Score: 0 02/11/20 22 7:59 PM EST documented as of this encounter Care Teams Channel Supervisor Relationship Specialty Start Date End Date Anthony Tam MD [address] [place] [address] PCP - General Internal Medicine 11/24/19 Roge Car DO [address] [place] [address] [email or web address] Primary Oncologist Hematology and Oncology 03/24/18 Anthony Tam MD [address] [place] [address] Insurance Assigned Provider 06/12/18 11/15/22 Gomez Cunha MD [address] [place] [address] Obstetrics and Gynecology 01/26/23 documented as of this encounter Additional Source Comments The information contained in this document represents components of the legal health record. It is not the complete legal health record.[facility]
--- OUTSIDE RECORDS SUMMARY | 2024-11-12 12:30 | XMS_ITS | Encounter Summary ---
Author Organization [facility] Address [address] [place] [address] Phone Care Team Providers Care Capacity Analyst Name Role Phone Roge Car DO Unavailable [phone] Anthony Tam MD Unavailable Anthony Tam MD Primary Care Provider [phone] Gomez Cunha MD Unavailable [phone] Encounter Details Date Type Department Care Team (Late st Contact Info) Description 10/23/2020 Procedure Pass Non-Invasive Cardiology [address] [place] [address] Social History Tobacco Use Types Packs/Day Years Used Date Smoking Tobacco: Every Day Cigarettes 0.3 15 Started: 12/18/2002; Last attempted to quit: 12/18/2017 Smokeless Tobacco: Never Comments:6-7 cigarettes amanda y Alcohol Use Standard Drinks/Week Comments Not Currently 0 (1 standard drink = 0.6 oz pur e alcohol) rarely Child or Family Care Answer Date Record ed Do you have problems with on e of the following making it difficult for you to work, study, or receive health care? No 08/09/2020 Education Answer Date Recorded Are you interested in help w ith more adult education (for example, completing high school, GED, job training, learning the Micronesian language, technical skills, or developing parenting skills)? [...] Description 01/03/2025 3:30 PM EDT Office Visit [facility] [address] [place] [address] 3rd Floor, [address] [place] [address] Vanessa Lomax, BENIGNO [facility], [address] [address] 01/09/2025 3:30 PM EST Office Visit [facility] Internal Medicine 40 [place] [address] Anthony Tam MD 40 [place] [address] [email or web address] documented as of this encounter Visit Diagnoses Not on filedocumented in this encounter Additional Health Concerns Assessment Noted Time PHQ-2 Depression Total Score: 1 02/14/20 20 10:14 AM EST documented as of this encounter Care Teams Capacity Analyst Relationship Specialty Start Date End Date Anthony Tam MD [address] [place] [address] PCP - General Internal Medicine 11/24/19 Roge Car DO [address] [place] [address] [email or web address] Primary Oncologist Hematology and Oncology 03/24/18 Anthony Tam MD [address] [place] [address] Insurance Assigned Provider 06/12/18 11/15/22 Gomez Cunha MD [address] [place] [address] Obstetrics and Gynecology 01/26/23 documented as of this encounter Additional Source Comments The information contained in this document represents components of the legal health record. It is not the complete legal health record.[facility]
--- OUTSIDE RECORDS SUMMARY | 2024-11-12 12:30 | XMS_ITS | Encounter Summary ---
Author Organization [facility] Address [address] [place] [address] Phone Care Team Providers Care Nuclear Technologist Name Role Phone Anthony Tam MD Primary Care Provider [phone] Roge Car DO Unavailable [phone] Anthony Tam MD Unavailable [phone] Anthony Tam MD Primary Care Provider [phone] Gomez Cunha MD Unavailable [phone] Encounter Details Date Type Department Care Team (Late st Contact Info) Description 05/11/2018 Procedure Pass [facility] [address] [place] [address] [phone] Social History Tobacco Use Types Packs/Day Years Used Date Smoking Tobacco: Former Cigarettes 0.5 15 1 - 12/18/2017 Smokeless Tobacco: Never Alcohol Use Standard Drinks/Week Comments Yes 0 (1 standard drink = 0.6 oz pur e alcohol) once every 6 months maybe Comments No Sex and Gender Information Value [...] Description 01/03/2025 3:30 PM EDT Office Visit [facility] 22 [facility] 3rd Floor, [address] [place] [address] Vanessa Lomax, BENIGNO 22 [facility], [address] [place] [address] [email or web address] 01/09/2025 3:30 PM EST Office Visit [facility] Internal Medicine 40 [place] [address] Anthony Tam MD [address] [place], [place] [phone] [email or web address] documented as of this encounter Visit Diagnoses Not on filedocumented in this encounter Additional Health Concerns Infection Onset Date Last Indicated Resolved Time CoV-Risk 07/19/2020 07/19/2020 07/29/2020 1:24 AM EDT Assessment Noted Time PHQ-2 Depression Total Score: 0 01/05/20 18 10:38 AM EDT documented as of this encounter Care Teams Nuclear Technologist Relationship Specialty Start Date End Date Anthony Tam MD [address] [place] [address] [email or web address] PCP - General Internal Medicine 01/19/17 11/23/19 Anthony Tam MD [address] [place] [address] [email or web address] PCP - General Internal Medicine 11/24/19 Roge Car DO [address] [place] [address] [email or web address] Primary Oncologist Hematology and Oncology 03/24/18 Anthony Tam MD [address] [place] [address] [email or web address] Insurance Assigned Provider 06/12/18 11/15/22 Gomez Cunha MD [address] [place] [address], [facility] [address] [place] [address] [email or web address] Obstetrics and Gynecology 01/26/23 documented as of this encounter Additional Source Comments The information contained in this document represents components of the legal health record. It is not the complete legal health record.[facility]
--- OUTSIDE RECORDS SUMMARY | 2024-11-12 12:30 | XMS_ITS | Encounter Summary ---
Author Organization [facility] Address [address] [place] [address] Phone Care Team Providers Care Welding Inspector Name Role Phone Anthony Tam MD Primary Care Provider [phone] Anthony Tam MD Unavailable [phone] Roge Car DO Unavailable [phone] Anthony Tam MD Unavailable [phone] Anthony Tam MD Primary Care Provider [phone] Gomez Cunha MD Unavailable [phone] Encounter Details Date Type Department Care Team (Late st Contact Info) Description 04/02/2017 Procedure Pass [facility], Ct Scan - [address] [address] Social History Tobacco Use Types Packs/Day Years [...] Description 01/03/2025 3:30 PM EDT Office Visit [facility] 22 [facility] 3rd Floor, [address] [place], [place] [phone] Vanessa Lomax, BENIGNO 22 [facility], [address] [place] [address] 01/09/2025 3:30 PM EST Office Visit [facility] Internal Medicine 40 [place], [place] [phone] Anthony Tam MD [address] [place], [place] [phone] documented as of this encounter Visit Diagnoses Not on filedocumented in this encounter Additional Health Concerns Infection Onset Date Last Indicated Resolved Time CoV-Risk 07/19/2020 07/19/2020 07/29/2020 1:24 AM EDT Assessment Noted Time PHQ-2 Depression Total Score: 0 01/20/20 17 11:33 AM EST documented as of this encounter Care Teams Welding Inspector Relationship Specialty Start Date End Date Anthony Tam MD [address] [place] [address] PCP - General Internal Medicine 01/19/17 11/23/19 Anthony Tam MD [address] [place] [address] PCP - General Internal Medicine 11/24/19 Anthony Tam MD [address] [place] [address] Insurance Assigned Provider 05/02/17 01/09/18 Roge Car DO [address] [place] [address] [email or web address] Primary Oncologist Hematology and Oncology 03/24/18 Anthony Tam MD [address] [place] [address] [email or web address] Insurance Assigned Provider 06/12/18 11/15/22 Gomez Cunha MD [address] [place] [address], [facility] [address] [place] [address] [email or web address] Obstetrics and Gynecology 01/26/23 documented as of this encounter Additional Source Comments The information contained in this document represents components of the legal health record. It is not the complete legal health record.[facility]
--- OUTSIDE RECORDS SUMMARY | 2024-11-12 12:30 | XMS_ITS | Encounter Summary ---
Author Organization [facility] Address [address] [place] [address] [place] [address] Phone Care Team Providers Care Data Analytics Analyst Name Role Phone Roge Car DO Unavailable [phone] Anthony Tam MD Unavailable [phone] Anthony Tam MD Primary Care Provider [phone] Gomez Cunha MD Unavailable [phone] Encounter Details Date Type Department Care Team (Late st Contact Info) Description 10/23/2020 Procedure Pass [facility] [place] [address] Social History Tobacco Use Types Packs/Day Years [...] high school, GED, job training, learning the Malian language, technical skills, or developing parenting skills)? [...] Description 01/03/2025 3:30 PM EDT Office Visit [facility] [address] [place] [address] 3rd Floor, [address] [place] [address] Vanessa Lomax, BENIGNO 22 [facility], [address] [address] 01/09/2025 3:30 PM EST Office Visit [facility] Internal Medicine [address] [place] [address] Anthony Tam MD 40 [place] [address] [email or web address] documented as of this encounter Visit Diagnoses Not on filedocumented in this encounter Additional Health Concerns Assessment Noted Time PHQ-2 Depression Total Score: 1 02/14/20 20 10:14 AM EST documented as of this encounter Care Teams Data Analytics Analyst Relationship Specialty Start Date End Date Anthony Tam MD [address] [place] [address] PCP - General Internal Medicine 11/24/19 Roge Car DO [address] [place] [address] [email or web address] Primary Oncologist Hematology and Oncology 03/24/18 Anthony Tam MD [address] [place] [address] Insurance Assigned Provider 06/12/18 11/15/22 Gomez Cunha MD [address] [place] [address] Obstetrics and Gynecology 01/26/23 documented as of this encounter Additional Source Comments The information contained in this document represents components of the legal health record. It is not the complete legal health record.[facility]
--- OUTSIDE RECORDS SUMMARY | 2024-11-12 12:30 | XMS_ITS | Encounter Summary ---
Author Organization [facility] Address [address] [place] [address] Phone Care Team Providers Care Java Software Developer Name Role Phone JocelineRoge DO Unavailable [phone] Anthony Tam MD Unavailable [phone] Anthony Tam MD Primary Care Provider [phone] Gomez Cunha MD Unavailable [phone] Encounter Details Date Type Department Care Team (Late st Contact Info) Description 11/24/2019 Procedure Pass [facility], [address] [address] Social History Tobacco Use Types Packs/Day Years Used Date Smoking Tobacco: Every Day Cigarettes 0.3 15 Started: 12/18/2002; Last attempted to quit: 12/18/2017 Smokeless Tobacco: Never Comments:4-5 cigarettes amanda y Alcohol Use Standard Drinks/Week Comments Yes 0 (1 standard drink = 0.6 oz pur e alcohol) 1-2 x every 6 months maybe Child or Family Care Answer Date Record ed Do you have problems with on e of the following making it difficult for you to work, study, or receive health care? No 06/01/2018 Education Answer Date Recorded Are you interested in help w ith more adult education (for example, completing high school, GED, job training, learning the Belgian language, technical skills, or developing parenting skills)? Yes 06/01/2018 Food Answer Date Recorded Within the past 6 months we worried whether our food would run out before we got money to buy more. Often True 06/01/2018 Within the past 6 months the food we bought just didn't last and we didn't have enough money to get more. Often True 9 Paying for Meds Answer Date Recorded Do you have trouble paying for medicines? No 06/01/2018 Paying Utility Bills Answer Date Record ed Do you have trouble paying your heating or elect ricity bill? Yes 06/01/2018 Transportation Answer Date Recorded Has the lack of transportati on kept you from medical appointments or from getting medications? No 06/01/2018 Comments No Sex and Gender Information Value [...] Description 01/03/2025 3:30 PM EDT Office Visit [facility] [address] [place] [address] 3rd Floor, [address] [place] [address] Vanessa Lomax, BENIGNO 22 [facility], [address] [address] 01/09/2025 3:30 PM EST Office Visit [facility] [place] [facility] [address] [place] [address] Anthony Tam MD [address] [place] [address] documented as of this encounter Visit Diagnoses Not on filedocumented in this encounter Additional Health Concerns Infection Onset Date Last Indicated Resolved Time CoV-Risk 07/19/2020 07/19/2020 07/29/2020 1:24 AM EDT Assessment Noted Time PHQ-2 Depression Total Score: 0 11/06/19 19 12:59 PM EDT documented as of this encounter Care Teams Java Software Developer Relationship Specialty Start Date End Date Anthony Tam MD [address] [place] [address] [email or web address] PCP - General Internal Medicine 11/24/19 Roge Car DO [address] [place] [address] [email or web address] Primary Oncologist Hematology and Oncology 03/24/18 Anthony Tam MD [address] [place] [address] [email or web address] Insurance Assigned Provider 06/12/18 11/15/22 Gomez Cunha MD [address] [place] [address] [email or web address] Obstetrics and Gynecology 01/26/23 documented as of this encounter Additional Source Comments The information contained in this document represents components of the legal health record. It is not the complete legal health record.[facility]
--- OUTSIDE RECORDS SUMMARY | 2024-11-12 12:30 | XMS_ITS | Encounter Summary ---
Author Organization [facility] Address [address] [place] [address] Phone Care Team Providers Care Chemical Dependency Attendant Name Role Phone JocelineRoge DO Unavailable [phone] Anthoyn Tam MD Unavailable [phone] Anthony Tam MD Primary Care Provider [phone] Gomez Cunha MD Unavailable [phone] Encounter Details Date Type Department Care Team (Late st Contact Info) Description 11/24/2019 Ancillary Orders [facility] Internal Medicine [address] [place], [place] [address] Anthony Tam MD [address] [place], [place] [id number] [email or web address] Breast screening Social History Tobacco Use Types [...] high school, GED, job training, learning the Namibian language, technical skills, or developing parenting skills)? [...] Description 01/03/2025 3:30 PM EDT Office Visit [facility] [address] [place] [address] 3rd Floor, [address] [place] [address] Vanessa Lomax, BENIGNO [address] [place] [address], [address] [address] 01/09/2025 3:30 PM EST Office Visit [facility] [place] [facility] [address] [place], [place] [phone] Anthony Tam MD 40 [place] [address] documented as of this encounter Results * BI MAMMOGRAM SCREENING WITH TOMOSYNTHESIS WITH CAD (BILATERAL) (02/06/2020 2:18 PM EST) Anatomical Region Laterality Modality Breast Left, Breast Right, Breast Bilateral Bila teral Mammography 02/06/2020 3:03 PM EST Impressions 02/06/2020 3:08 PM EST No findings suspicious for malignancy are identified. In the absence of a worrisome palpable abnormality, annual screening mammography is recommended. BI-RADS CATEGORY: 1 - Negative. DENSITY: There are scattered fibroglandular densities. Narrative 02/06/2020 3:08 PM EST COMPARISON: 05/28/2017 through 02/04/2019 Bilateral 3-D tomosynthesis with 2-D reconstructions in the CC and MLO projection. Computer-aided detection system also utilized. No new mass, asymmetry, architectural distortion or suspicious calcifications have become apparent on either side. Procedure Note Jax Rose MD - 02/06/2020 COMPARISON: 05/28/2017 through 02/04/2019 Bilateral 3-D tomosynthesis with 2-D reconstructions in the CC and MLOprojection. Computer-aided detection system also utilized. No new mass, asymmetry, architectural distortion or suspiciouscalcifications have become apparent on either side. IMPRESSION: No findings suspicious for malignancy are identified. In the absence of aworrisome palpable abnormality, annual screening mammography isrecommended. BI-RADS CATEGORY: 1 - Negative. DENSITY: There are scattered fibroglandular densities. Anthony Tam MD IMG MG EXAMS Final [...] documented as of this encounter Care Teams Chemical Dependency Attendant Relationship Specialty Start Date End Date Anthony Tam MD [address] [place] [address] [email or web address] PCP - General Internal Medicine 11/24/19 Roge Car DO [address] [place] [address] [email or web address] Primary Oncologist Hematology and Oncology 03/24/18 Anthony Tam MD [address] [place] [address] [email or web address] Insurance Assigned Provider 06/12/18 11/15/22 Gomez Cunha MD [address] [place] [address], [facility] [address] [place] [address] [email or web address] Obstetrics and Gynecology 01/26/23 documented as of this encounter Additional Source Comments The information contained in this document represents components of the legal health record. It is not the complete legal health record.[facility]
--- OUTSIDE RECORDS SUMMARY | 2024-11-12 12:30 | XMS_ITS | Encounter Summary ---
Author Organization [facility] Address [employer] [facility] [address] [place] [address] Phone Care Team Providers Care Plug Stitcher Name Role Phone Anthony Tam MD Primary Care Provider [phone] Roge Car DO Unavailable [phone] Anthony Tam MD Unavailable [phone] Anthony Tam MD Primary Care Provider [phone] Gomez Cunha MD Unavailable [phone] Reason for Visit * Auth/Cert Specialty Diagnoses / Procedures Referred By Natanael t Referred To Contact Diagnoses Compression of brain PSEUDOTUMOR B/L Procedures [place] DECOMPRESS OPTIC NERVE OPTIC NERVE SHEATH FENESTRATION Referral ID Status Reason Start Date Expiration Date Visits Re quested Visits Authorized [id number] 1 1 Encounter Details Date Type Department Care Team (Late st Contact Info) Description 05/11/2018 Hospital Encounter [facility] DEPT [address] [place] [phone] Josué Barros MD [address] [place] [address], [address] [place] [address] [email or web address] Social History Tobacco Use Types Packs/Day Years [...] high school, GED, job training, learning the Singaporean language, technical skills, or developing parenting skills)? [...] learning more? Yes 01/26/2023 Our hospital collaborates [facility] community organizations that help patients sign up for SNAP and access healthy nutritious foods. Can we give your contact information to our community partner so that they can reach out and help you enroll in SNAP? Yes 01/26/2023 Benefits received from [place]? Not on file 01/08 WIC is a [...] Description 01/03/2025 3:30 PM EDT Office Visit [facility] [address] [place] [address] 3rd Floor, [address] [place] [address] Vanessa Lomax, BENIGNO 22 [facility], [address] [place] [address] [email or web address] 01/09/2025 3:30 PM EST Office Visit [facility] [address] [place] [address] Anthony Tam MD [address] [place], [place] [phone] [email or web address] documented as of this encounter Visit Diagnoses Not on filedocumented in this encounter Additional Health Concerns Infection Onset Date Last Indicated Resolved Time CoV-Risk 07/19/2020 07/19/2020 07/29/2020 1:24 AM EDT Assessment Noted Time PHQ-2 Depression Total Score: 0 01/05/20 18 10:38 AM EDT documented as of this encounter Care Teams Plug Stitcher Relationship Specialty Start Date End Date Anthony Tam MD [address] [place] [address] [email or web address] PCP - General Internal Medicine 01/19/17 11/23/19 Anthony Tam MD [address] [place] [address] PCP - General Internal Medicine 11/24/19 Roge Car DO [address] [place] [address] [email or web address] Primary Oncologist Hematology and Oncology 03/24/18 Anthony Tam MD [address] [place] [address] [email or web address] Insurance Assigned Provider 06/12/18 11/15/22 Gomez Cunha MD [address] [place] [address], [facility] [address] [place] [address] [email or web address] Obstetrics and Gynecology 01/26/23 documented as of this encounter Additional Source Comments The information contained in this document represents components of the legal health record. It is not the complete legal health record.[facility]
--- OUTSIDE RECORDS SUMMARY | 2024-11-12 12:30 | XMS_ITS | Encounter Summary ---
Author Organization [facility] Address [facility] [employer] [facility] [address] [place] [address] Phone Care Team Providers Care Cleaning And Washing Equipment Operator Name Role Phone Anthony Tam MD Primary Care Provider [phone] Roge Car DO Unavailable [phone] Anthony Tam MD Unavailable [phone] Anthony Tam MD Primary Care Provider [phone] Gomez Cunha MD Unavailable [phone] Encounter Details Date Type Department Care Team (Latest Contact Info) Description 09/07/2018 Transcribe Orders [facility] [address] [place] [address] Roge Car DO [address] [place] [address] [email or web address] Screening for unspecified condition (Primary Dx) Social History Tobacco Use Types Packs/Day Years Used Date Smoking Tobacco: Former Cigarettes 0.5 15 1 - 12/18/2017 Smokeless Tobacco: Never Alcohol Use Standard Drinks/Week Comments Yes 0 (1 standard drink = 0.6 oz pur e alcohol) once every 6 months maybe Child or Family Care Answer Date Record ed Do you have problems with on e of the following making it difficult for you to work, study, or receive health care? No 06/01/2018 Education Answer Date Recorded Are you interested in help w ith more adult education (for example, completing high school, GED, job training, learning the Monegasque language, technical skills, or developing parenting skills)? [...] Description 01/03/2025 3:30 PM EDT Office Visit [facility] [address] [place] [address] 3rd [facility], [address] [place] [address] Vanessa Lomax, BENIGNO [address] [place] [address], [address] [address] 01/09/2025 3:30 PM EST Office Visit [facility] [place] [facility] Medicine 40 [place] [address] Anthony Tam MD [address] [place] [address] documented as of this encounter Visit Diagnoses Diagnosis Screening for unspecified condition- Primary documented in this encounter Additional Health Concerns Infection Onset Date Last Indicated Resolved Time CoV-Risk 07/19/2020 07/19/2020 07/29/2020 1:24 AM EDT Assessment Noted Time PHQ-2 Depression Total Score: 0 06/02/19 8:42 AM EDT documented as of this encounter Care Teams Cleaning And Washing Equipment Operator Relationship Specialty Start Date End Date Anthony Tam MD [address] [place] [address] [email or web address] PCP - General Internal Medicine 01/19/17 11/23/19 Anthony Tam MD [address] [place] [address] PCP - General Internal Medicine 11/24/19 Roge Car DO [address] [place] [address] [email or web address] Primary Oncologist Hematology and Oncology 03/24/18 Anthony Tam MD [address] [place] [address] [email or web address] Insurance Assigned Provider 06/12/18 11/15/22 Gomez Cunha MD [address] [place] [address] [address] [place] [address] [email or web address] Obstetrics and Gynecology 01/26/23 documented as of this encounter Additional Source Comments The information contained in this document represents components of the legal health record. It is not the complete legal health record.[facility]
--- OUTSIDE RECORDS SUMMARY | 2024-11-12 12:30 | XMS_ITS | Encounter Summary ---
Author Organization [facility] Address [address] [place] [address] [place] [address] Phone Care Team Providers Care Load Dispatcher Local Name Role Phone JocelineRoge DO Unavailable [phone] Anthony Tam MD Unavailable [phone] Anthony Tam MD Primary Care Provider [phone] Gomez Cunha MD Unavailable [phone] Encounter Details Date Type Department Care Team (Late st Contact Info) Description 02/25/2022 Procedure Pass Non-Invasive Cardiology [address] [place] [address] Social History Tobacco Use Types Packs/Day Years [...] high school, GED, job training, learning the Northern Irish language, technical skills, or developing parenting skills)? [...] Description 01/03/2025 3:30 PM EDT Office Visit [facility] [address] [place] [address] 3rd Floor, [address] [place] [address] Vanessa Lomax, BENIGNO 22 [facility], [address] [place] [address] 01/09/2025 3:30 PM EST Office Visit [facility] [place] [facility] 40 [place] [address] Anthony Tam MD [address] [place] [address] [email or web address] documented as of this encounter Visit Diagnoses Not on filedocumented in this encounter Additional Health Concerns Assessment Noted Time PHQ-2 Depression Total Score: 0 02/11/20 22 7:59 PM EST documented as of this encounter Care Teams Load Dispatcher Local Relationship Specialty Start Date End Date Anthony Tam MD [address] [place] [address] PCP - General Internal Medicine 11/24/19 Roge Car DO [address] [place] [address] [email or web address] Primary Oncologist Hematology and Oncology 03/24/18 Anthony Tam MD [address] [place] [address] Insurance Assigned Provider 06/12/18 11/15/22 Gomez Cunha MD [address] [place] [address] Obstetrics and Gynecology 01/26/23 documented as of this encounter Additional Source Comments The information contained in this document represents components of the legal health record. It is not the complete legal health record.[facility]
--- OUTSIDE RECORDS SUMMARY | 2024-11-12 12:30 | XMS_ITS | Encounter Summary ---
Author Organization [facility] Address [address] [place] [address] Phone Care Team Providers Care Tooling Supervisor Name Role Phone Anthony Tam MD Primary Care Provider [phone] Anthony Tam MD Unavailable [phone] Roge Car DO Unavailable [phone] Anthony Tam MD Unavailable [phone] Anthony Tam MD Primary Care Provider [phone] Gomez Cunha MD Unavailable [phone] Encounter Details Date Type Department Care Team (Late st Contact Info) Description 04/02/2017 Procedure Pass [facility], Ct Scan - [address] [address] Social History Tobacco Use Types Packs/Day Years [...] Description 01/03/2025 3:30 PM EDT Office Visit [facility] 3rd Floor, [address] [place], [place] [phone] Vanessa Lomax, BENIGNO 22 [facility], [address] [place] [address] 01/09/2025 3:30 PM EST Office Visit [facility] Internal Medicine 40 [place], [place] [address] Anthony Tam MD 40 [place], [place] [phone] documented as of this encounter Visit Diagnoses Not on filedocumented in this encounter Additional Health Concerns Infection Onset Date Last Indicated Resolved Time CoV-Risk 07/19/2020 07/19/2020 07/29/2020 1:24 AM EDT Assessment Noted Time PHQ-2 Depression Total Score: 0 01/20/20 17 11:33 AM EST documented as of this encounter Care Teams Tooling Supervisor Relationship Specialty Start Date End Date Anthony Tam MD 40 [place] [address] PCP - General Internal Medicine 01/19/17 11/23/19 Anthony Tam MD [address] [place] [address] PCP - General Internal Medicine 11/24/19 Anthony Tam MD 40 [place] [address] Insurance Assigned Provider 05/02/17 01/09/18 Roge Car DO [address] [place] [address] [email or web address] Primary Oncologist Hematology and Oncology 03/24/18 Anthony Tam MD [address] [place] [address] [email or web address] Insurance Assigned Provider 06/12/18 11/15/22 Gomez Cunha MD [address] [place] [address], [facility] [address] [place] [address] [email or web address] Obstetrics and Gynecology 01/26/23 documented as of this encounter Additional Source Comments The information contained in this document represents components of the legal health record. It is not the complete legal health record.[facility]
--- OUTSIDE RECORDS SUMMARY | 2024-11-12 12:30 | XMS_ITS | Clinical Summary ---
Author Organization [facility] Address [address] [place] [address] Phone Care Team Providers Care Management Tech Name Role Phone Anthony Tam MD Primary Care Provider [phone] Allergies No known active allergies Medications No known medications Medical History Medical History Date Comments Hypertension Depression Social History Tobacco Use Types Packs/Day Years Used Date Smoking Tobacco: Every Day Cigarettes Smokeless Tobacco: Never Tobacco Cessation:Ready to Q uit: Not Asked Comments No Sex and Gender Information Value Date Recorded Sex Assigned at Female 05/02/2024 9:29 AM EST Legal Sex Female 6:56 PM EST Gender Identity Female 05/02/2024 9:29 AM EST Sexual Orientation Straight 05/02/2024 9: 29 AM EST Obstetrics History Last Filed Vital Signs Vital Sign Reading Time Taken Comments Blood Pressure 113/74 05/02/2024 9:39 AM EST Pulse 74 05/02/2024 9:39 AM EST Temperature 36.9 C (98.4 F) 05/02/2024 9:28 AM EST Respiratory Rate 18 05/02/2024 9:28 AM EST Oxygen Saturation 99% 05/02/2024 9:28 AM EST Inhaled Oxygen Concentration - - Weight 108 kg (239 lb) 05/02/2024 7:29 AM EST Height 165.1 cm (5' 5 ) 05/02/2024 7:29 AM EST Body Mass Index 39.77 05/02/2024 7:29 AM EST Plan of Treatment Health Maintenance Due Date Last Done Comments Hepatitis B Vaccines (1 of 3 - 19+ 3-dose series) 01/30/1995 Cervical Cancer Screening: Pap Smear 01/30/1997 Pneumococcal Vaccine: Pediatrics (0 to 5 Years) and At-Risk Patients (6 to 49 Years) (2 of 2 - PCV) 02/16/2021 02/17/2020 DTaP,Tdap,and Td Vaccines (2 - Td or Tdap) 03/06/2024 03/06/2014 Depression Screening 03/09/2024 Colorectal Cancer Screening: Colonoscopy 05/02/2024 HIV Screening 05/02/2024 Social Influencers of Health Screening 05/02/2024 COVID-19 Vaccine ( - season) 2024 04/30/2020, 04/09/2020 Influenza Vaccine (#1) 2024 , 02/13/2022, 12/21/2020, Additional history exists Breast Cancer Screening 02/16/2025 02/16/2023 Cholesterol Screening (Lipid Panel) 01/27/2028 01/26/2023 Hepatitis C Screening Completed 06/29/2020 HPV Vaccines Completed 01/18/2021, 08/08, 06/29/2020 HIB Vaccines Aged Out No longer eligi ble based on patient's age to complete this topic Hepatitis A Vaccines Aged Out No long er eligible based on patient's age to complete this topic IPV Vaccines Aged Out No longer eligi ble based on patient's age to complete this topic MMR Vaccines Aged Out No longer eligi ble based on patient's age to complete this topic Meningococcal ACWY Vaccine Aged Out N o longer eligible based on patient's age to complete this topic Meningococcal B Vaccine Aged Out No l onger eligible based on patient's age to complete this topic RSV Immunization Patients Under 20 months Aged Out No longer eligible based on patient's age to complete this topic Varicella Vaccines Aged Out No longer eligible based on patient's age to complete this topic Insurance [facility] Care Teams Management Tech Relationship Specialty Start Date End Date Anthony Tam MD [address] [place] [address] PCP - General Internal Medicine 05/02/24
--- OUTSIDE RECORDS SUMMARY | 2024-11-12 12:30 | XMS_ITS | Encounter Summary ---
Author Organization [facility] Address [address] [place] [address] Phone Care Team Providers Care Substance Abuse Technician Name Role Phone JocelineRoge DO Unavailable [phone] Anthony Tam MD Unavailable [phone] Anthony Tam MD Primary Care Provider [phone] Gomez Cunha MD Unavailable [phone] Encounter Details Date Type Department Care Team (Latest Contact Info) Description 01/22/2022 Transcribe Orders Virtual Department [address] [place] [address] Anthony Tam MD [address] [place] [address] [email or web address] Breast screening (Primary Dx) Social History Tobacco Use Types Packs/Day Years Used Date Smoking Tobacco: Every Day Cigarettes 0.3 15 Started: 12/18/2002; Last attempted to quit: 12/18/2017 Smokeless Tobacco: Never Comments:4-5 cigarettes amanda y Alcohol Use Standard Drinks/Week Comments Not Currently 0 (1 standard drink = 0.6 oz pur e alcohol) 2x/month Child or Family Care Answer Date Record ed Do you have problems with on e of the following making it difficult for you to work, study, or receive health care? No 08/09/2020 Education Answer Date Recorded Are you interested in help w ith more adult education (for example, completing high school, GED, job training, learning the Japanese language, technical skills, or developing parenting skills)? [...] is your housing situation today? I have ldiia mars 08/09/2020 How many times have you [...] Description 01/03/2025 3:30 PM EDT Office Visit [facility] [address] [place] [address] 3rd Floor, [address] [place] [address] Vanessa Lomax, BENIGNO 22 [facility], [address] [place] [address] 01/09/2025 3:30 PM EST Office Visit [facility] [address] [place] [address] Anthony Tam MD [address] [place] [address] [email or web address] documented as of this encounter Results * BI MAMMOGRAM SCREENING WITH TOMOSYNTHESIS WITH CAD (BILATERAL) (02/14/2022 12:47 PM EST) Anatomical Region Laterality Modality Breast Left, Breast Right, Breast Bilateral Bila teral Mammography 02/20/2022 12:4 2 PM EST Impressions 02/20/2022 12:50 PM EST No mammographic signs of malignancy. Annual screening is recommended. BI-RADS CATEGORY: 1 - Negative. DENSITY: The breast tissue is almost entirely fat. Narrative 02/20/2022 12:50 PM EST Bilateral mammography is performed in conjunction with computed aided detection. 3-D tomography along with 2-D C view imaging was also performed. Comparison made to previous dated as far back as 05/28/2017 and as recent as 02/07/2021 . No suspicious masses, areas of architectural distortion or suspicious microcalcifications. Procedure Note Todd Smith MD - 02/20/2022 Bilateral mammography is performed in conjunction with computed aideddetection. 3-D tomography along with 2-D C view imaging was alsoperformed. Comparison made to previous dated as far back as 05/28/2017 andas recent as 02/07/2021 . No suspicious masses, areas of architectural distortion or suspiciousmicrocalcifications. IMPRESSION: No mammographic signs of malignancy. Annual screening is recommended. BI-RADS CATEGORY: 1 - Negative. DENSITY: The breast tissue is almost entirely fat. us Anthony Tam MD IMG MG EXAMS Final Result documented in this encounter Visit Diagnoses Diagnosis Breast screening- Primary Breast screening, unspecified Breast screening Breast screening, unspecified documented in this encounter Additional Health Concerns Assessment Noted Time PHQ-2 Depression Total Score: 1 02/14/20 20 10:14 AM EST documented as of this encounter Care Teams Substance Abuse Technician Relationship Specialty Start Date End Date Anthony Tam MD [address] [place] [address] [email or web address] PCP - General Internal Medicine 11/24/19 Roge Car DO [address] [place] [address] [email or web address] Primary Oncologist Hematology and Oncology 03/24/18 Anthony Tam MD [address] [place] [address] Insurance Assigned Provider 06/12/18 11/15/22 Gomez Cunha MD [address] [place] [address], [address] [address] [email or web address] Obstetrics and Gynecology 01/26/23 documented as of this encounter Additional Source Comments The information contained in this document represents components of the legal health record. It is not the complete legal health record.[facility]
--- OUTSIDE RECORDS SUMMARY | 2024-11-12 12:30 | XMS_ITS | Encounter Summary ---
Author Organization [facility] Address [facility] [address] [place] [address] Phone Care Team Providers Care Customer Service And Sales Consultant Name Role Phone JocelineRoge DO Unavailable [phone] Anthony Tam MD Unavailable [phone] Anthony Tam MD Primary Care Provider [phone] Gomez Cunha MD Unavailable [phone] Encounter Details Date Type Department Care Team (Late st Contact Info) Description 12/27/2020 Procedure Pass [address] [address] Social History Tobacco Use Types Packs/Day Years [...] high school, GED, job training, learning the [place]une[place] language, technical skills, or developing parenting skills)? [...] Description 01/03/2025 3:30 PM EDT Office Visit [facility] [address] [place] [address] 3rd Floor, [address] [place] [address] Vanessa Lomax, BENIGNO 22 [facility], [address] [address] 01/09/2025 3:30 PM EST Office Visit [facility] [place] [facility] 40 [place] [address] Anthony Tam MD [address] [place] [address] [email or web address] documented as of this encounter Visit Diagnoses Not on filedocumented in this encounter Additional Health Concerns Assessment Noted Time PHQ-2 Depression Total Score: 1 02/14/20 20 10:14 AM EST documented as of this encounter Care Teams Customer Service And Sales Consultant Relationship Specialty Start Date End Date Anthony Tam MD [address] [place] [address] PCP - General Internal Medicine 11/24/19 Roge Car DO [address] [place] [address] [email or web address] Primary Oncologist Hematology and Oncology 03/24/18 Anthony Tam MD [address] [place] [address] [email or web address] Insurance Assigned Provider 06/12/18 11/15/22 Gomez Cunha MD [address] [place] [address], [address] [address] Obstetrics and Gynecology 01/26/23 documented as of this encounter Additional Source Comments The information contained in this document represents components of the legal health record. It is not the complete legal health record.[facility]
[2024-11-12] MEDS: Diphth,Pertus(ACell),Tet Adult 0.5 ML SYRINGE IM (12:31)
[2024-11-12] MEDS: Lidocaine HCl 1 % MPF 5 ML VIAL SUBCUT (13:39)
[2024-11-12 14:39] VITALS: BP 137/66; PULSE 87; RESP 18; TEMP 36.5; O2SAT 97
== END 2024-11-12 14:40 | disposition home or self-care (01) ==
PROVIDERS: Emergency Provider Emergency Medicine; PCP Internal Medicine
DX: S62.600A Fracture of unspecified phalanx of right index finger, initial encounter for closed fracture (principal); S62.631A Displaced fracture of distal phalanx of left index finger, initial encounter for closed fracture; F10.129 Alcohol abuse with intoxication, unspecified; Y90.9 Presence of alcohol in blood, level not specified; X50.1XXA Overexertion from prolonged static or awkward postures, initial encounter; X50.9XXA Other and unspecified overexertion or strenuous movements or postures, initial encounter; Y93.9 Activity, unspecified; Y92.9 Unspecified place or not applicable; Y99.8 Other external cause status; Z23 Encounter for immunization; F17.210 Nicotine dependence, cigarettes, uncomplicated
CPT/HCPCS: 12042; 29130; 73140; 90471; 90715; 99284; J2003

== ENCOUNTER → 2024-11-12 12:04 | Outpatient (BNV) | payer BC, SELFPAY | PROVIDERS: PCP Internal Medicine; Visit Provider Radiology Diagnostic Radiology | DX: S62.631A Displaced fracture of distal phalanx of left index finger, initial encounter for closed fracture (principal) | CPT/HCPCS: 73140 ==

== ENCOUNTER 2024-11-15 11:01 | Outpatient (AMB) | payer BC, SELFPAY ==
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
[2024-11-15 11:10] VITALS: BMI 39.5
--- OUTSIDE RECORDS SUMMARY | 2024-11-15 13:21 | XMS_ITS | Encounter Summary ---
Author Organization [facility] Address [facility] [address] [place] [address] Phone Care Team Providers Care Transcripter Name Role Phone JocelineRoge DO Unavailable [phone] Anthony Tam MD Unavailable [phone] Anthony Tam MD Primary Care Provider [phone] Gomez Cunha MD Unavailable [phone] Encounter Details Date Type Department Care Team (Late st Contact Info) Description 12/27/2020 Procedure Pass [address] [address] Social History Tobacco Use Types Packs/Day Years [...] high school, GED, job training, learning the [place] language, technical skills, or developing parenting skills)? [...] Description 01/03/2025 3:30 PM EDT Office Visit [facility] [address] [place] [address] 3rd Floor, [address] [place] [address] Vanessa Lomax, BENIGNO 22 [facility], [address] [address] 01/09/2025 3:30 PM EST Office Visit [facility] [place] [facility] 40 [place] [address] Anthony Tam MD [address] [place] [address] [email or web address] documented as of this encounter Visit Diagnoses Not on filedocumented in this encounter Additional Health Concerns Assessment Noted Time PHQ-2 Depression Total Score: 1 02/14/20 20 10:14 AM EST documented as of this encounter Care Teams Transcripter Relationship Specialty Start Date End Date Anthony Tam MD 40 [place] [address] PCP - General Internal Medicine 11/24/19 Roge Car DO [address] [place] [address] [email or web address] Primary Oncologist Hematology and Oncology 03/24/18 Anthony Tam MD [address] [place] [address] [email or web address] Insurance Assigned Provider 06/12/18 11/15/22 Gomez Cunha MD [address] [place] [address], [address] [address] Obstetrics and Gynecology 01/26/23 documented as of this encounter Additional Source Comments The information contained in this document represents components of the legal health record. It is not the complete legal health record.[facility]
--- OUTSIDE RECORDS SUMMARY | 2024-11-15 13:21 | XMS_ITS | Encounter Summary ---
Author Organization [facility] Address [address] [place] [address] [place] [address] Phone Care Team Providers Care Fire Chief Deputy Name Role Phone Joceline Roge Ji DO Unavailable [phone] Anthony Tam MD Primary Care Provider [phone] Gomez Cunha MD Unavailable [phone] Encounter Details Date Type Department Care Team (Late st Contact Info) Description 08/05/2024 Procedure Pass [facility] [address] [place], [place] [id number] Social History Tobacco Use Types Packs/Day Years [...] high school, GED, job training, learning the [place] language, technical skills, or developing parenting skills)? [...] learning more? Yes 01/26/2023 [facility] community organizations that help patients [...] Description 01/03/2025 3:30 PM EDT Office Visit [facility] [address] [place] [address] 3rd Floor, [address] [place] [address] Vanessa Loamx, BENIGNO [address] [address] 01/09/2025 3:30 PM EST Office Visit [facility] Internal Medicine 40 [place] [address] Anthony Tam MD [address] [place] [address] documented as of this encounter Visit Diagnoses Not on filedocumented in this encounter Additional Health Concerns Assessment Noted Time PHQ-9 Depression Total Score: 17 025 3:06 PM EST PHQ-2 Depression Total Score: 0 08/03/19 25 2:47 PM EDT documented as of this encounter Care Teams Fire Chief Deputy Relationship Specialty Start Date End Date Anthony Tam MD [address] [place] [address] [email or web address] PCP - General Internal Medicine 11/24/19 Roge Car DO [address] [place] [address] [email or web address] Primary Oncologist Hematology and Oncology 03/24/18 Gomez Cunha MD [address] [place] [address] [address] [place] [address] [email or web address] Obstetrics and Gynecology 01/26/23 documented as of this encounter Additional Source Comments The information contained in this document represents components of the legal health record. It is not the complete legal health record.[facility]
--- OUTSIDE RECORDS SUMMARY | 2024-11-15 13:21 | XMS_ITS | Encounter Summary ---
Author Organization [facility] Address [facility] [address] [place] [address] Phone Care Team Providers Care Special Projects Coordinator Name Role Phone Roge Car DO Unavailable [phone] Anthony Tam MD Primary Care Provider Gomez Cunha MD Unavailable [phone] Encounter Details Date Type Department Care Team (Late st Contact Info) Description 12/15/2022 Procedure Pass [facility], [address] [address] Social History Tobacco Use Types Packs/Day Years [...] Description 01/03/2025 3:30 PM EDT Office Visit [facility] [address] [place] [address] 3rd Floor, [address] [place] [address] Vanessa Lomax, BENIGNO 22 [facility], [address] [place] [address] 01/09/2025 3:30 PM EST Office Visit [facility] Internal Medicine [address] [place] [address] Anthony Tam MD [address] [place] [address] [email or web address] documented as of this encounter Visit Diagnoses Not on filedocumented in this encounter Additional Health Concerns Assessment Noted Time PHQ-2 Depression Total Score: 0 01/27/20 23 2:24 PM EST documented as of this encounter Care Teams Special Projects Coordinator Relationship Specialty Start Date End Date Anthony Tam MD [address] [place] [address] [email or web address] PCP - General Internal Medicine 11/24/19 Roge Car DO [address] [place] [address] [email or web address] Primary Oncologist Hematology and Oncology 03/24/18 Gomez Cunha MD [address] [place] [address] [email or web address] Obstetrics and Gynecology 01/26/23 documented as of this encounter Additional Source Comments The information contained in this document represents components of the legal health record. It is not the complete legal health record.[facility]
--- OUTSIDE RECORDS SUMMARY | 2024-11-15 13:21 | XMS_ITS | Encounter Summary ---
Author Organization [facility] Address [address] [place] [address] Phone Care Team Providers Care Electric System Operator Name Role Phone Anthony Tam MD Primary Care Provider [phone] Anthony Tam MD Unavailable [phone] Roge Car DO Unavailable [phone] Anthony Tam MD Unavailable [phone] Anthony Tam MD Primary Care Provider [phone] Gomez Cunha MD Unavailable [phone] Encounter Details Date Type Department Care Team (Late st Contact Info) Description 04/17/2017 Ancillary Orders [facility] Internal Medicine 40 [place], [place] [phone] Anthony Tam MD 40 [place] [address] [email or web address] Breast screening Social History Tobacco Use Types [...] Description 01/03/2025 3:30 PM EDT Office Visit [facility] 22 [facility] 3rd Floor, [address] [place], [place] [phone] Vanessa Lomax DNP 22 [facility], [address] [place], [place] [phone] 01/09/2025 3:30 PM EST Office Visit [facility] Internal Medicine 40 [place], [place] [phone] Anthony Tam MD 40 [place], [place] [address] documented as of this encounter Results * BI MAMMOGRAM SCREENING WITH TOMOSYNTHESIS WITH CAD (BILATERAL) (05/28/2017 9:27 AM EDT) Anatomical Region Laterality Modality Breast Left, Breast Right, Breast Bilateral Bila teral Mammography 05/28/2017 9:44 AM EDT Impressions 05/28/2017 9:46 AM EDT No mammographic evidence of malignancy. BI-RADS CATEGORY: 1 - Negative. DENSITY: The breast tissue is almost entirely fat. POS - [id number] Narrative 05/28/2017 9:46 AM EDT Standard digital [...] tissue is almost entirely fat. POS - [id number] Anthony Tam MD IMG MG EXAMS Final [...] documented as of this encounter Care Teams Electric System Operator Relationship Specialty Start Date End Date Anthony Tam MD 40 [place] [address] PCP - General Internal Medicine 01/19/17 11/23/19 Anthony Tam MD 40 [place] [address] PCP - General Internal Medicine 11/24/19 Anthony Tam MD [address] [place] [address] Insurance Assigned Provider 05/02/17 01/09/18 Roge Car DO [address] [place] [address] [email or web address] Primary Oncologist Hematology and Oncology 03/24/18 Anthony Tam MD [address] [place] [address] [email or web address] Insurance Assigned Provider 06/12/18 11/15/22 Gomez Cunha MD [address] [place] [address], [facility] [address] [place] [address] [email or web address] Obstetrics and Gynecology 01/26/23 documented as of this encounter Additional Source Comments The information contained in this document represents components of the legal health record. It is not the complete legal health record.[facility]
--- OUTSIDE RECORDS SUMMARY | 2024-11-15 13:21 | XMS_ITS | Encounter Summary ---
Author Organization [facility] Address [address] [place] [address] Phone Care Team Providers Care Feed Elevator Worker Name Role Phone Anthony Tam MD Primary Care Provider [phone] Anthony Tam MD Unavailable [phone] Roge Car DO Unavailable [phone] Anthony Tam MD Unavailable [phone] Anthony Tam MD Primary Care Provider [phone] Gomez Cunha MD Unavailable [phone] Encounter Details Date Type Department Care Team (Late st Contact Info) Description 04/08/2017 Procedure Pass [facility], [address] [address] Social History Tobacco Use Types Packs/Day Years [...] Description 01/03/2025 3:30 PM EDT Office Visit [facility] [address] [place] [address] 3rd Floor, [address] [place] [address] Vanessa Lomax, BENIGNO 22 [facility], [address] [place] [address] 01/09/2025 3:30 PM EST Office Visit [facility] Internal Medicine 40 [place], [place] [phone] Anthony Tam MD 40 [place], [place] [phone] documented as of this encounter Visit Diagnoses Not on filedocumented in this encounter Additional Health Concerns Infection Onset Date Last Indicated Resolved Time CoV-Risk 07/19/2020 07/19/2020 07/29/2020 1:24 AM EDT Assessment Noted Time PHQ-2 Depression Total Score: 0 01/20/20 17 11:33 AM EST documented as of this encounter Care Teams Feed Elevator Worker Relationship Specialty Start Date End Date Anthony Tam MD 40 [place] [address] PCP - General Internal Medicine 01/19/17 11/23/19 Anthony Tam MD 40 [place] [address] PCP - General Internal Medicine 11/24/19 Anthony Tam MD 40 [place] [address] Insurance Assigned Provider 05/02/17 01/09/18 Roge Car DO [address] [place] [address] [email or web address] Primary Oncologist Hematology and Oncology 03/24/18 Anthony Tam MD [address] [place] [address] [email or web address] Insurance Assigned Provider 06/12/18 11/15/22 Gomez Cunha MD [address] [place] [address] 102 [place] [address] [email or web address] Obstetrics and Gynecology 01/26/23 documented as of this encounter Additional Source Comments The information contained in this document represents components of the legal health record. It is not the complete legal health record.[facility]
--- OUTSIDE RECORDS SUMMARY | 2024-11-15 13:21 | XMS_ITS | Clinical Summary ---
Author Organization [facility] Address [address] [place] [address] Phone Care Team Providers Care Inhalation Therapy Teacher Name Role Phone Anthony Tam MD Primary Care Provider [phone] Allergies No known active allergies Medications No [...] patient's age to complete this topic Insurance [facility] Care Teams Inhalation Therapy Teacher Relationship Specialty Start Date End Date Anthony Tam MD [address] [place] [address] PCP - General Internal Medicine 05/02/24
--- OUTSIDE RECORDS SUMMARY | 2024-11-15 13:21 | XMS_ITS | Encounter Summary ---
Author Organization [facility] Address [address] [place] [address] Phone Care Team Providers Care Technical Sales Associate Name Role Phone JocelineRoge DO Unavailable [phone] Anthony Tam MD Unavailable [phone] Anthony Tam MD Primary Care Provider [phone] Gomez Cunha MD Unavailable [phone] Encounter Details Date Type Department Care Team (Latest Contact Info) Description 01/22/2022 Transcribe Orders Virtual Department [address] [place] [address] Anthony Tam MD 40 [place] [address] [email or web address] Breast screening (Primary Dx) Social History Tobacco [...] high school, GED, job training, learning the Cameroonian language, technical skills, or developing parenting skills)? [...] Description 01/03/2025 3:30 PM EDT Office Visit [facility] [address] [place] [address] 3rd Floor, [address] [place] [address] Vanessa Lomax, BENIGNO 22 [facility], [address] [place] [address] 01/09/2025 3:30 PM EST Office Visit [facility] [place] Internal Medicine 40 [place] [address] Anthony Tam MD 40 [place] [address] [email or web address] documented as of this encounter Results * [...] documented as of this encounter Care Teams Technical Sales Associate Relationship Specialty Start Date End Date Anthony aTm MD 40 [place] [address] [email or web address] PCP - General Internal Medicine 11/24/19 Roge Car DO [address] [place] [address] [email or web address] Primary Oncologist Hematology and Oncology 03/24/18 Anthony Tam MD 40 [place] [address] Insurance Assigned Provider 06/12/18 11/15/22 Gomez Cunha MD [address] [place] [address], [address] [address] [email or web address] Obstetrics and Gynecology 01/26/23 documented as of this encounter Additional Source Comments The information contained in this document represents components of the legal health record. It is not the complete legal health record.[facility]
--- OUTSIDE RECORDS SUMMARY | 2024-11-15 13:21 | XMS_ITS | Encounter Summary ---
Author Organization [facility] Address [address] [place] [address] Phone Care Team Providers Care Transaction Manager Name Role Phone Anthony Tam MD Primary Care Provider [phone] Roge Car DO Unavailable [phone] Anthony Tam MD Unavailable [phone] Anthony Tam MD Primary Care Provider [phone] Gomez Cunha MD Unavailable [phone] Encounter Details Date Type Department Care Team (Late st Contact Info) Description 05/11/2018 Procedure Pass [facility] PERIOP DEPT [address] [place] [address] [phone] Social History Tobacco Use Types Packs/Day Years [...] Description 01/03/2025 3:30 PM EDT Office Visit [facility] [address] [facility] 3rd Floor, [address] [place] [address] Vanessa Lomax, BENIGNO 22 [facility], [address] [place] [address] [email or web address] 01/09/2025 3:30 PM EST Office Visit [facility] Internal Medicine 40 [place] [address] Anthony Tam MD 40 [place], [place] [phone] [email or web address] documented as of this encounter Visit Diagnoses Not on filedocumented in this encounter Additional Health Concerns Infection Onset Date Last Indicated Resolved Time CoV-Risk 07/19/2020 07/19/2020 07/29/2020 1:24 AM EDT Assessment Noted Time PHQ-2 Depression Total Score: 0 01/05/20 18 10:38 AM EDT documented as of this encounter Care Teams Transaction Manager Relationship Specialty Start Date End Date Anthony Tam MD 40 [place] [address] [email or web address] PCP - General Internal Medicine 01/19/17 11/23/19 Anthony Tam MD 40 [place] [address] [email or web address] PCP - General Internal Medicine 11/24/19 Roge aCr DO [address] [place] [address] [email or web address] Primary Oncologist Hematology and Oncology 03/24/18 Anthony Tam MD [address] [place] [address] [email or web address] Insurance Assigned Provider 06/12/18 11/15/22 Gomez Cunha MD [address] [place] [address], [facility] [address] [place] [address] [email or web address] Obstetrics and Gynecology 01/26/23 documented as of this encounter Additional Source Comments The information contained in this document represents components of the legal health record. It is not the complete legal health record.[facility]
--- OUTSIDE RECORDS SUMMARY | 2024-11-15 13:21 | XMS_ITS | Encounter Summary ---
Author Organization [facility] Address [address] [place] [address] [place] [address] Phone Care Team Providers Care Bird Keeper Name Role Phone Joceline Roge Ji DO Unavailable [phone] Anthony Tam MD Primary Care Provider [phone] Gomez Cunha MD Unavailable [phone] Encounter Details Date Type Department Care Team (Late st Contact Info) Description 11/14/2024 Orders Only [facility] Internal Medicine 40 [place] [address] Provider, MD Gerardo [address] [place] [address] Social History Tobacco Use Types Packs/Day Years [...] high school, GED, job training, learning the Macedonian language, technical skills, or developing parenting skills)? [...] learning more? Yes 01/26/2023 Our hospital collaborates [facility] community organizations that help patients sign up for SNAP and access healthy nutritious foods. Can we give your contact information to our community partner so that they can reach out and help you enroll in SNAP? Yes 01/26/2023 Benefits received from [facility]? Not on file 01/08 WIC is a [...] Description 01/03/2025 3:30 PM EDT Office Visit [facility] [address] [place] [address] 3rd [facility], [address] [place] [address] Vanessa Lomax, BENIGON [address] [place] [address], [address] [address] 01/09/2025 3:30 PM EST Office Visit [facility] Internal Medicine 40 [place] [address] Anthony Tam MD 40 [place] [address] documented as of this encounter Procedures Procedure Name Priority Date/Time Associated Diagnosis Comments OUTSIDE IMAGING Routine 11/12/2024 11:58 AM EDT documented in this encounter Results * Outside Imaging Report Only (11/12/2024 11:58 AM EDT) us Historical Provider MD HARRY XR CHEST Final Res ult documented in this encounter Visit Diagnoses Not on filedocumented in this encounter Additional Health Concerns Assessment Noted Time PHQ-9 Depression Total Score: 17 025 3:06 PM EST PHQ-2 Depression Total Score: 0 08/03/19 25 2:47 PM EDT documented as of this encounter Care Teams Bird Keeper Relationship Specialty Start Date End Date Anthony Tam MD 40 [place] [address] [email or web address] PCP - General Internal Medicine 11/24/19 Roge Car DO [address] [place] [address] [email or web address] Primary Oncologist Hematology and Oncology 03/24/18 Gomez Cunha MD [address] [place] [address] 102 [place] [address] [email or web address] Obstetrics and Gynecology 01/26/23 documented as of this encounter Additional Source Comments The information contained in this document represents components of the legal health record. It is not the complete legal health record.[facility]
--- OUTSIDE RECORDS SUMMARY | 2024-11-15 13:21 | XMS_ITS | Encounter Summary ---
Author Organization [facility] Address [address] [place] [address] [place] [address] Phone Care Team Providers Care Care Professionals Name Role Phone JocelineRoge DO Unavailable [phone] Anthony Tam MD Unavailable [phone] Anthony Tam MD Primary Care Provider [phone] Gomez Cunha MD Unavailable [phone] Encounter Details Date Type Department Care Team (Late st Contact Info) Description 02/25/2022 Procedure Pass [facility] 30 [place] [address] Social History Tobacco Use Types Packs/Day Years [...] high school, GED, job training, learning the Sri Lankan language, technical skills, or developing parenting skills)? [...] Description 01/03/2025 3:30 PM EDT Office Visit [facility] [address] [place] [address] 3rd Floor, [address] [place] [address] Vanessa Lomax, BENIGNO 22 [facility], [address] [place] [address] 01/09/2025 3:30 PM EST Office Visit [facility] [place] Internal Medicine 40 [place] [address] Anthony Tam MD 40 [place] [address] [email or web address] documented as of this encounter Visit Diagnoses Not on filedocumented in this encounter Additional Health Concerns Assessment Noted Time PHQ-2 Depression Total Score: 0 02/11/20 22 7:59 PM EST documented as of this encounter Care Teams Care Professionals Relationship Specialty Start Date End Date Anthony Tam MD 40 [place] [address] PCP - General Internal Medicine 11/24/19 Roge Car DO [address] [place] [address] [email or web address] Primary Oncologist Hematology and Oncology 03/24/18 Anthony Tam MD 40 [place] [address] Insurance Assigned Provider 06/12/18 11/15/22 Gomez Cunha MD [address] [place] [address] Obstetrics and Gynecology 01/26/23 documented as of this encounter Additional Source Comments The information contained in this document represents components of the legal health record. It is not the complete legal health record.[facility]
--- OUTSIDE RECORDS SUMMARY | 2024-11-15 13:21 | XMS_ITS | Encounter Summary ---
Author Organization [facility] Address [address] [place] [address] Phone Care Team Providers Care Grinding Wheel Facer Name Role Phone Anthony Tam MD Primary Care Provider [phone] Anthony Tam MD Unavailable [phone] Roge Car DO Unavailable [phone] Anthony Tam MD Unavailable [phone] Anthony Tam MD Primary Care Provider [phone] Gomez Cunha MD Unavailable [phone] Encounter Details Date Type Department Care Team (Late st Contact Info) Description 04/02/2017 Procedure Pass [facility], Ct Scan - [address] [address] Social History Tobacco Use Types Packs/Day Years [...] Description 01/03/2025 3:30 PM EDT Office Visit [facility] 3rd Floor, [address] [place], [place] 4[address] Vanessa Lomax, BENIGNO 22 [facility], [address] [place] [address] 01/09/2025 3:30 PM EST Office Visit [facility] Internal Medicine 40 [place], [place] [phone] Anthony Tam MD 40 [place], [place] 3977607 documented as of this encounter Visit Diagnoses Not on filedocumented in this encounter Additional Health Concerns Infection Onset Date Last Indicated Resolved Time CoV-Risk 07/19/2020 07/19/2020 07/29/2020 1:24 AM EDT Assessment Noted Time PHQ-2 Depression Total Score: 0 01/20/20 17 11:33 AM EST documented as of this encounter Care Teams Grinding Wheel Facer Relationship Specialty Start Date End Date Anthony Tam MD 40 [place] [address] PCP - General Internal Medicine 01/19/17 11/23/19 Anthony Tam MD 40 [place] [address] PCP - General Internal Medicine 11/24/19 Anthony Tam MD 40 [place] [address] Insurance Assigned Provider 05/02/17 01/09/18 Roge Car DO [address] [place] [address] [email or web address] Primary Oncologist Hematology and Oncology 03/24/18 Anthony Tam MD [address] [place] [address] [email or web address] Insurance Assigned Provider 06/12/18 11/15/22 Gomez Cunha MD [address] [place] [address], [facility] 102 [place] [address] [email or web address] Obstetrics and Gynecology 01/26/23 documented as of this encounter Additional Source Comments The information contained in this document represents components of the legal health record. It is not the complete legal health record.[facility]
--- OUTSIDE RECORDS SUMMARY | 2024-11-15 13:21 | XMS_ITS | Encounter Summary ---
Author Organization [facility] Address [address] [place] [address] Phone Care Team Providers Care Principal Java Developer Name Role Phone JocelineRoge DO Unavailable [phone] Anthony Tam MD Unavailable [phone] Anthony Tam MD Primary Care Provider [phone] Gomez Cunha MD Unavailable [phone] Encounter Details Date Type Department Care Team (Late st Contact Info) Description 11/24/2019 Ancillary Orders [facility] Internal Medicine 40 [place], [place] [phone] Anthony Tam MD 40 [place], [place] 4671107 [email or web address] Breast screening Social History Tobacco Use Types [...] high school, GED, job training, learning the Turkmen language, technical skills, or developing parenting skills)? [...] Description 01/03/2025 3:30 PM EDT Office Visit [facility] [address] [place] [address] 3rd Floor, [address] [place] [address] Vanessa Lomax, BENIGNO [address] [place] [address], [address] [address] 01/09/2025 3:30 PM EST Office Visit [facility] [place] Internal Medicine 40 [place], [place] [phone] Anthony Tam MD 40 [place] [address] documented as of this encounter Results * [...] documented as of this encounter Care Teams Principal Java Developer Relationship Specialty Start Date End Date Anthony Tam MD 40 [place] [address] [email or web address] PCP - General Internal Medicine 11/24/19 Roge Car DO 30 [place] [address] [email or web address] Primary Oncologist Hematology and Oncology 03/24/18 Anthony Tam MD 40 [place] [address] [email or web address] Insurance Assigned Provider 06/12/18 11/15/22 Gomez Cunha MD [address] [place] [address], [facility] 102 [place] [address] [email or web address] Obstetrics and Gynecology 01/26/23 documented as of this encounter Additional Source Comments The information contained in this document represents components of the legal health record. It is not the complete legal health record.[facility]
--- OUTSIDE RECORDS SUMMARY | 2024-11-15 13:21 | XMS_ITS | Encounter Summary ---
Author Organization [facility] Address [address] [place] [address] Phone Care Team Providers Care High School Band Teacher Name Role Phone Anthony Tam MD Primary Care Provider [phone] Anthony Tam MD Unavailable [phone] Roge Car DO Unavailable [phone] Anthony Tam MD Unavailable [phone] Anthony Tam MD Primary Care Provider [phone] Gomez Cunha MD Unavailable [phone] Encounter Details Date Type Department Care Team (Late st Contact Info) Description 04/02/2017 Procedure Pass [facility], Ct Scan - [address] [address] Social History Tobacco Use Types Packs/Day Years [...] Description 01/03/2025 3:30 PM EDT Office Visit [facility] 22 [facility] 3rd Floor, [address] [place], [place] [phone] Vanessa Lomax, BENIGNO 22 [facility], [address] [place] [address] 01/09/2025 3:30 PM EST Office Visit [facility] Internal Medicine 40 [place], [place] 227[address] Anthony Tam MD 40 [place], [place] [phone] documented as of this encounter Visit Diagnoses Not on filedocumented in this encounter Additional Health Concerns Infection Onset Date Last Indicated Resolved Time CoV-Risk 07/19/2020 07/19/2020 07/29/2020 1:24 AM EDT Assessment Noted Time PHQ-2 Depression Total Score: 0 01/20/20 17 11:33 AM EST documented as of this encounter Care Teams High School Band Teacher Relationship Specialty Start Date End Date Anthony Tam MD 40 [place] [address] PCP - General Internal Medicine 01/19/17 11/23/19 Anthony Tam MD 40 [place] [address] PCP - General Internal Medicine 11/24/19 Anthony Tam MD 40 [place] [address] Insurance Assigned Provider 05/02/17 01/09/18 Roge Car DO [address] [place] [address] [email or web address] Primary Oncologist Hematology and Oncology 03/24/18 Anthony Tam MD [address] [place] [address] [email or web address] Insurance Assigned Provider 06/12/18 11/15/22 Gomez Cunha MD [address] [place] [address], [facility] 102 [place] [address] [email or web address] Obstetrics and Gynecology 01/26/23 documented as of this encounter Additional Source Comments The information contained in this document represents components of the legal health record. It is not the complete legal health record.[facility]
--- OUTSIDE RECORDS SUMMARY | 2024-11-15 13:21 | XMS_ITS | Encounter Summary ---
Author Organization [facility] Address [facility] [address] [place] [address] Phone Care Team Providers Care Maintainer Operator Name Role Phone Anthony Tam MD Primary Care Provider [phone] Roge Car DO Unavailable [phone] Anthony Tam MD Unavailable [phone] Anthony Tam MD Primary Care Provider [phone] Gomez Cunha MD Unavailable [phone] Reason for Visit * Auth/Cert Specialty Diagnoses / Procedures Referred By Natanael t Referred To Contact Diagnoses Compression of brain PSEUDOTUMOR B/L Procedures OH DECOMPRESS OPTIC NERVE OPTIC NERVE SHEATH FENESTRATION Referral ID Status Reason Start Date Expiration Date Visits Re quested Visits Authorized [id number] 1 1 Encounter Details Date Type Department Care Team (Late st Contact Info) Description 05/11/2018 Hospital Encounter [facility] MAIN PERIOP DEPT [address] [place] [phone] Josué Barros MD [address] [place] [address], [address] [place] [address] [email or web address] Social History Tobacco Use Types Packs/Day Years [...] high school, GED, job training, learning the Nigerian language, technical skills, or developing parenting skills)? [...] learning more? Yes 01/26/2023 Our hospital collaborates [facility] community organizations that help patients [...] Description 01/03/2025 3:30 PM EDT Office Visit [facility] [address] [place] [address] 3rd Floor, [address] [place] [address] Vanessa Lomax, BENIGNO 22 [facility], [address] [place] [address] [email or web address] 01/09/2025 3:30 PM EST Office Visit [facility] Internal Medicine 40 [place] [address] Anthony Tam MD 40 [place], [place] 4420707 [email or web address] documented as of this encounter Visit Diagnoses Not on filedocumented in this encounter Additional Health Concerns Infection Onset Date Last Indicated Resolved Time CoV-Risk 07/19/2020 07/19/2020 07/29/2020 1:24 AM EDT Assessment Noted Time PHQ-2 Depression Total Score: 0 01/05/20 18 10:38 AM EDT documented as of this encounter Care Teams Maintainer Operator Relationship Specialty Start Date End Date Anthony Tam MD 40 [place] [address] [email or web address] PCP - General Internal Medicine 01/19/17 11/23/19 Anthony Tam MD 40 [place] [address] PCP - General Internal Medicine 11/24/19 Roge Car DO [address] [place] [address] [email or web address] Primary Oncologist Hematology and Oncology 03/24/18 Anthony Tam MD 40 [place] [address] [email or web address] Insurance Assigned Provider 06/12/18 11/15/22 Gomez Cunha MD [address] [place] [address], [facility] 102 [place] [address] [email or web address] Obstetrics and Gynecology 01/26/23 documented as of this encounter Additional Source Comments The information contained in this document represents components of the legal health record. It is not the complete legal health record.[facility]
--- OUTSIDE RECORDS SUMMARY | 2024-11-15 13:21 | XMS_ITS | Encounter Summary ---
Author Organization [facility] Address [address] [place] [address] [place] [address] Phone Care Team Providers Care Copy Editor Name Role Phone Roge Car DO Unavailable [phone] Anthony Tam MD Unavailable [phone] Anthony Tam MD Primary Care Provider [phone] Gomez Cunha MD Unavailable [phone] Encounter Details Date Type Department Care Team (Late st Contact Info) Description 01/22/2022 Procedure Pass [address] [address] Social History Tobacco Use Types Packs/Day Years [...] high school, GED, job training, learning the Syrian language, technical skills, or developing parenting skills)? [...] Description 01/03/2025 3:30 PM EDT Office Visit [facility] [address] [place] [address] 3rd Floor, [address] [place] [address] Vanessa Lomax, BENIGNO 22 [facility], [address] [place] [id number] [email or web address] 01/09/2025 3:30 PM EST Office Visit [facility] Internal Medicine [address] [place] [address] Anthony Tam MD [address] [place] [address] [email or web address] documented as of this encounter Visit Diagnoses Not on filedocumented in this encounter Additional Health Concerns Assessment Noted Time PHQ-2 Depression Total Score: 0 02/11/20 22 7:59 PM EST documented as of this encounter Care Teams Copy Editor Relationship Specialty Start Date End Date Anthony Tam MD [address] [place] [address] PCP - General Internal Medicine 11/24/19 Roge Car DO [address] [place] [phone] [email or web address] Primary Oncologist Hematology and Oncology 03/24/18 Anthony Tam MD [address] [place] [address] Insurance Assigned Provider 06/12/18 11/15/22 Gomez Cunha MD [address] [place] [address] Obstetrics and Gynecology 01/26/23 documented as of this encounter Additional Source Comments The information contained in this document represents components of the legal health record. It is not the complete legal health record.[facility]
--- OUTSIDE RECORDS SUMMARY | 2024-11-15 13:21 | XMS_ITS | Encounter Summary ---
Author Organization [facility] Address [facility] [employer] [facility] [address] [place] [address] Phone Care Team Providers Care Comfort Station Attendant Name Role Phone Anthony Tam MD Primary Care Provider [phone] Roge Car DO Unavailable [phone] Anthony Tam MD Unavailable [phone] Anthony Tam MD Primary Care Provider [phone] Gomez Cunha MD Unavailable [phone] Encounter Details Date Type Department Care Team (Latest Contact Info) Description 09/07/2018 Transcribe Orders [facility] Laboratory [address] [place] [address] Roge Car DO [address] [place] [address] [email or web address] Screening for unspecified condition (Primary Dx) [...] high school, GED, job training, learning the Colombian language, technical skills, or developing parenting skills)? [...] Description 01/03/2025 3:30 PM EDT Office Visit [facility] [address] [place] [address] 3rd [facility], [address] [place] [address] Vanessa Lomax, BENIGNO [address] [place] [address], [address] [address] 01/09/2025 3:30 PM EST Office Visit [facility] Medicine [address] [place] [address] Anthony Tam MD 40 [place] [address] documented as of this encounter Visit Diagnoses Diagnosis Screening for unspecified condition- Primary documented in this encounter Additional Health Concerns Infection Onset Date Last Indicated Resolved Time CoV-Risk 07/19/2020 07/19/2020 07/29/2020 1:24 AM EDT Assessment Noted Time PHQ-2 Depression Total Score: 0 06/02/19 8:42 AM EDT documented as of this encounter Care Teams Comfort Station Attendant Relationship Specialty Start Date End Date Anthony Tam MD [address] [place] [address] [email or web address] PCP - General Internal Medicine 01/19/17 11/23/19 Anthony Tam MD [address] [place] [address] PCP - General Internal Medicine 11/24/19 Roge Car DO [address] [place] [phone] [email or web address] Primary Oncologist Hematology and Oncology 03/24/18 Anthony Tam MD [address] [place] [address] [email or web address] Insurance Assigned Provider 06/12/18 11/15/22 Gomez Cunha MD [address] [place] [address] [address] [place] [address] [email or web address] Obstetrics and Gynecology 01/26/23 documented as of this encounter Additional Source Comments The information contained in this document represents components of the legal health record. It is not the complete legal health record.[facility]
--- OUTSIDE RECORDS SUMMARY | 2024-11-15 13:21 | XMS_ITS | Encounter Summary ---
Author Organization [facility] Address [address] [place] [address] Phone Care Team Providers Care Fine Chemicals Operator Name Role Phone Anthony Tam MD Primary Care Provider [phone] Anthony Tam MD Unavailable [phone] Roge Car DO Unavailable [phone] Anthony Tam MD Unavailable [phone] Anthony Tam MD Primary Care Provider [phone] Gomez Cunha MD Unavailable [phone] Reason for Referral * MRI/CAT Scan - Closed Specialty Diagnoses / Procedures Referred By Contac t Referred To Contact Radiology Diagnoses Dizziness Concussion without loss of consciousness, initial encounter Other complicated headache syndrome Procedures MRI Brain Anthony Tam MD Phone: tel: fax: [email or web address] Referral ID Status Reason Start Date Expiration Date Visits Re quested Visits Authorized [id number] Closed 04/08/2017 06/06/2017 1 1 Encounter Details Date Type Department Care Team (Latest Contact Info) Description 04/08/2017 Ancillary Orders [facility] Internal Medicine [address] [place] [address] Anthony Tam MD [address] [place] [address] [email or web address] Dizziness; Concussion without loss of consciousness, initial [...] Description 01/03/2025 3:30 PM EDT Office Visit [facility] [address] [place] [address] 3rd Floor, [address] [place] [address] Vanessa Lomax, BENIGNO 22 [facility], [address] [address] 01/09/2025 3:30 PM EST Office Visit [facility] Internal Medicine [address] [place] [address] Anthony Tam MD [address] [place] [address] [email or web address] documented as of this encounter Results * MRI BRAIN WITHOUT CONTRAST (04/17/2017 11:49 AM EST) Anatomical Region Laterality Modality Head Magnetic Resonan ce 04/17/2017 12:2 8 PM EST Impressions 04/17/2017 1:04 PM EST No acute intracranial hemorrhage, mass, or infarction is detected. Mild cerebellar tonsillar ectopia again noted. POS - [id number] Edited by: Joanna Sahu on 04/17/2017 12:51 PM Narrative 04/17/2017 1:04 PM EST HISTORY: Closed head injury with pain. Concussion. Chiari malformation. Dizziness. COMPARISON: CT 04/02/2017. MRI 05/23/2014 TECHNIQUE: Exam performed on a 1.5 Naatli high-field MRI scanner. Axial T1, T2, T2*, [...] Mildcerebellar tonsillar ectopia again noted. POS - [id number] Edited by: Joanna Sahu on 04/17/2017 12:51 [...] documented as of this encounter Care Teams Fine Chemicals Operator Relationship Specialty Start Date End Date Anthony Tam MD [address] [place] [address] [email or web address] PCP - General Internal Medicine 01/19/17 11/23/19 Anthony Tam MD [address] [place] [address] [email or web address] PCP - General Internal Medicine 11/24/19 Anthony aTm MD [address] [place] [address] [email or web address] Insurance Assigned Provider 05/02/17 01/09/18 Roge Car DO [address] [place] [address] [email or web address] Primary Oncologist Hematology and Oncology 03/24/18 Anthony Tam MD [address] [place] [address] [email or web address] Insurance Assigned Provider 06/12/18 11/15/22 Gomez Cunha MD [address] [place] [address], [facility] [address] [place] [address] [email or web address] Obstetrics and Gynecology 01/26/23 documented as of this encounter Additional Source Comments The information contained in this document represents components of the legal health record. It is not the complete legal health record.[facility]
--- OUTSIDE RECORDS SUMMARY | 2024-11-15 13:21 | XMS_ITS | Encounter Summary ---
Author Organization [facility] Address [address] [place] [address] Phone Care Team Providers Care Cider Maker Name Role Phone JocelineRoge DO Unavailable [phone] Anthony Tam MD Unavailable [phone] Anthony Tam MD Primary Care Provider [phone] Gomez Cunha MD Unavailable [phone] Encounter Details Date Type Department Care Team (Late st Contact Info) Description 11/24/2019 Procedure Pass [facility], [address] [address] Social History Tobacco Use Types Packs/Day Years [...] high school, GED, job training, learning the Thai language, technical skills, or developing parenting skills)? [...] Description 01/03/2025 3:30 PM EDT Office Visit [facility] [address] [place] [address] 3rd Floor, [address] [place] [address] Vanessa Lomax, BENIGNO 22 [facility], [address] [address] 01/09/2025 3:30 PM EST Office Visit [facility] Medicine [address] [place] [address] Anthony Tam MD [address] [place] [address] documented as of this encounter Visit Diagnoses Not on filedocumented in this encounter Additional Health Concerns Infection Onset Date Last Indicated Resolved Time CoV-Risk 07/19/2020 07/19/2020 07/29/2020 1:24 AM EDT Assessment Noted Time PHQ-2 Depression Total Score: 0 11/06/19 19 12:59 PM EDT documented as of this encounter Care Teams Cider Maker Relationship Specialty Start Date End Date Anthony Tam MD [address] [place] [address] [email or web address] PCP - General Internal Medicine 11/24/19 Roge Car DO [address] [place] [address] [email or web address] Primary Oncologist Hematology and Oncology 03/24/18 Anthony Tam MD [address] [place] [address] [email or web address] Insurance Assigned Provider 06/12/18 11/15/22 Gomez Cunha MD [address] [place] [id number] [email or web address] Obstetrics and Gynecology 01/26/23 documented as of this encounter Additional Source Comments The information contained in this document represents components of the legal health record. It is not the complete legal health record.[facility]
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
--- OUTSIDE RECORDS SUMMARY | 2024-11-15 13:22 | XMS_ITS | Encounter Summary ---
Author Organization [facility] Address [address] [place] [address] Phone Care Team Providers Care Evaluation Specialist Name Role Phone Roge Car DO Unavailable [phone] Anthony Tam MD Unavailable [phone] Anthony Tam MD Primary Care Provider Gomez Cunha MD Unavailable [phone] Encounter Details Date Type Department Care Team (Late st Contact Info) Description 10/23/2020 Procedure Pass Non-Invasive Cardiology [address] [place] [address] Social History Tobacco Use Types Packs/Day Years [...] high school, GED, job training, learning the Angolan language, technical skills, or developing parenting skills)? [...] Description 01/03/2025 3:30 PM EDT Office Visit [facility] [address] [place] [address] [address]rd Floor, [address] [place] [address] Vanessa Lomax, BENIGNO 22 [facility], [address] [address] 01/09/2025 3:30 PM EST Office Visit [facility] Medical [facility] Internal Medicine [address] [place] [address] Anthony Tam MD [address] [place] [address] [email or web address] documented as of this encounter Visit Diagnoses Not on filedocumented in this encounter Additional Health Concerns Assessment Noted Time PHQ-2 Depression Total Score: 1 02/14/20 20 10:14 AM EST documented as of this encounter Care Teams Evaluation Specialist Relationship Specialty Start Date End Date Anthony Tam MD [address] [place] [address] PCP - General Internal Medicine 11/24/19 Roge Car DO [address] [place] [phone] [email or web address] Primary Oncologist Hematology and Oncology 03/24/18 Anthony Tam MD [address] [place] [address] Insurance Assigned Provider 06/12/18 11/15/22 Gomez Cunha MD [address] [place] [address] Obstetrics and Gynecology 01/26/23 documented as of this encounter Additional Source Comments The information contained in this document represents components of the legal health record. It is not the complete legal health record.[facility]
--- OUTSIDE RECORDS SUMMARY | 2024-11-15 13:22 | XMS_ITS | Encounter Summary ---
Author Organization [facility] Address [address] [place] [address] [place] [address] Phone Care Team Providers Care Manager Resort Name Role Phone Roge Car DO Unavailable [phone] Anthony Tam MD Unavailable Anthony Tam MD Primary Care Provider [phone] Gomez Cunha MD Unavailable [phone] Encounter Details Date Type Department Care Team (Late st Contact Info) Description 10/23/2020 Procedure Pass [facility] [place] [address] Social History Tobacco Use Types Packs/Day Years [...] high school, GED, job training, learning the Emirati language, technical skills, or developing parenting skills)? [...] Description 01/03/2025 3:30 PM EDT Office Visit [facility] [address] [place] [address] 3rd Floor, [address] [place] [address] Vanessa Lomax, BENIGNO 22 [facility], [address] [address] 01/09/2025 3:30 PM EST Office Visit [facility] Medical [facility] Internal Medicine [address] [place] [address] Anthony Tam MD [address] [place] [address] [email or web address] documented as of this encounter Visit Diagnoses Not on filedocumented in this encounter Additional Health Concerns Assessment Noted Time PHQ-2 Depression Total Score: 1 02/14/20 20 10:14 AM EST documented as of this encounter Care Teams Manager Resort Relationship Specialty Start Date End Date Anthony Tam MD [address] [place] [address] PCP - General Internal Medicine 11/24/19 Roge Car DO [address] [place] [phone] [email or web address] Primary Oncologist Hematology and Oncology 03/24/18 Anthony Tam MD [address] [place] [address] Insurance Assigned Provider 06/12/18 11/15/22 Gomez Cunha MD [address] [place] [address] Obstetrics and Gynecology 01/26/23 documented as of this encounter Additional Source Comments The information contained in this document represents components of the legal health record. It is not the complete legal health record.[facility]
== END 2024-11-15 12:05 | disposition home or self-care (01) ==
LOC: HO.HOS 11:02
PROVIDERS: PCP Internal Medicine
DX: S62.631B Displaced fracture of distal phalanx of left index finger, initial encounter for open fracture (principal)
CPT/HCPCS: 26750; 99203

== ENCOUNTER 2024-11-15 11:01 | Outpatient (REF) | payer BC, SELFPAY ==
--- NOTE | ~2024-11-15 | XR_ITS ---
EXAMINATION: XR HAND 3 OR MORE VIEWS LEFT HISTORY: M79.642 - Pain in left hand COMPARISON: Comparison is made with the prior examination dated 11/12/2024. FINDINGS: Three views of the left hand are submitted. Osseous mineralization is normal. Again seen is an avulsion fracture of the dorsal aspect of the base of the distal phalanx of the index finger. The joint spaces are preserved. There is a soft tissue injury involving the distal index finger. XR/XR hand LT min 3V IMPRESSION: Soft tissue injury involving the distal index finger. Avulsion fracture of the dorsal aspect of the base of the distal phalanx without change. Electronically signed by: Gigi Bush MD 11/15/2024 11:29 AM EDT
== END 2024-11-15 11:02 | disposition home or self-care (01) ==
LOC: HO.HOSX 11:01
PROVIDERS: PCP Internal Medicine
DX: S62.631B Displaced fracture of distal phalanx of left index finger, initial encounter for open fracture (principal); W26.8XXA Contact with other sharp object(s), not elsewhere classified, initial encounter
CPT/HCPCS: 26750; 73130

== ENCOUNTER → 2024-11-15 11:09 | Outpatient (BNV) | payer BC, SELFPAY | PROVIDERS: PCP Internal Medicine; Visit Provider Radiology Diagnostic Radiology | DX: S62.631A Displaced fracture of distal phalanx of left index finger, initial encounter for closed fracture (principal) | CPT/HCPCS: 73130 ==

== ENCOUNTER 2024-11-23 08:29 | Outpatient (REF) | payer BC, SELFPAY ==
--- NOTE | ~2024-11-23 | XR_ITS ---
EXAMINATION: XR HAND 3 OR MORE VIEWS LEFT HISTORY: M79.642 - Pain in left hand COMPARISON: Comparison is made with the prior examination dated 11/12/2024. FINDINGS: Three views of the left hand are submitted. Osseous mineralization is normal. The previously seen a avulsion fracture of the dorsal aspect of the base of the distal phalanx of the index finger is less well visualized related to obliquity. The joint spaces are preserved. The soft tissues are unremarkable. XR/XR hand LT min 3V IMPRESSION: The previously seen a avulsion fracture of the dorsal aspect of the base of the distal phalanx of the index finger is less well visualized. Electronically signed by: Gigi Bush MD 11/23/2024 09:49 AM EDT
== END 2024-11-23 08:30 | disposition home or self-care (01) ==
LOC: HO.HOSX 08:29
DX: S62.631B Displaced fracture of distal phalanx of left index finger, initial encounter for open fracture (principal)
CPT/HCPCS: 73130

== ENCOUNTER 2024-11-23 09:32 | Outpatient (AMB) | payer BC, SELFPAY ==
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
[2024-11-23 09:42] VITALS: BMI 39.5
--- OUTSIDE RECORDS SUMMARY | 2024-11-23 11:18 | XMS_ITS | Encounter Summary ---
Author Organization [facility] Address [facility] [address] [place] [address] Phone Care Team Providers Care Optical Mechanic Apprentice Name Role Phone Anthony Tam MD Primary Care Provider [phone] Roge Car DO Unavailable [phone] Anthony Tam MD Unavailable Anthony Tam MD Primary Care Provider [phone] Gomez Cunha MD Unavailable [phone] Encounter Details Date Type Department Care Team (Latest Contact Info) Description 09/07/2018 Transcribe Orders [facility] Laboratory [address] [place] [address] Roge Car DO [address] [place] [address] [email or web address] Screening for unspecified condition (Primary Dx) Social [...] Description 01/03/2025 3:30 PM EDT Office Visit [facility] [address] [place] [address] 3rd [facility], [address] [place] [address] Vanessa Lomax, BENIGNO [address] [place] [address], [address] [address] 01/09/2025 3:30 PM EST Office Visit [facility] [place] [facility] [address] [place] [address] Anthony Tam MD [address] [place] [address] documented as of this encounter Visit Diagnoses Diagnosis Screening for unspecified condition- Primary documented in this encounter Additional Health Concerns Infection Onset Date Last Indicated Resolved Time CoV-Risk 07/19/2020 07/19/2020 07/29/2020 1:24 AM EDT Assessment Noted Time PHQ-2 Depression Total Score: 0 06/02/19 8:42 AM EDT documented as of this encounter Care Teams Optical Mechanic Apprentice Relationship Specialty Start Date End Date Anthony Tam MD [address] [place] [address] [email or web address] PCP - General Internal Medicine 01/19/17 11/23/19 Anthony Tam MD [address] [place] [address] PCP - General Internal Medicine 11/24/19 Roge Car DO [address] [place] [address] [email or web address] Primary Oncologist Hematology and Oncology 03/24/18 Anthony Tam MD [address] [place] [address] [email or web address] Insurance Assigned Provider 06/12/18 11/15/22 Gomez Cunha MD [address] [place] [address], [address] [address] [email or web address] Obstetrics and Gynecology 01/26/23 documented as of this encounter Additional Source Comments The information contained in this document represents components of the legal health record. It is not the complete legal health record.[facility]
--- OUTSIDE RECORDS SUMMARY | 2024-11-23 11:18 | XMS_ITS | Encounter Summary ---
Author Organization [facility] Address [address] [place] [address] Phone Care Team Providers Care School Bus Driver/Mechanic Name Role Phone Joceline Roge Ji DO Unavailable [phone] Anthony Tam MD Primary Care Provider [phone] Gomez Cunha MD Unavailable Encounter Details Date Type Department Care Team (Latest Contact Info) Description 12/15/2022 Transcribe Orders Virtual Department [address] [place] [address] Anthony Tam MD [address] [place] [address] [email or web address] Breast screening (Primary Dx) [...] Description 01/03/2025 3:30 PM EDT Office Visit [facility] [address] [place] [address] 3rd Floor, [address] [place] [address] Vanessa Lomax, BENIGNO 22 [facility], [address] [place] [address] 01/09/2025 3:30 PM EST Office Visit [facility] Internal Medicine [address] [place] [address] Anthony Tam MD [address] [place] [address] [email or web address] documented as of [...] documented as of this encounter Care Teams School Bus Driver/Mechanic Relationship Specialty Start Date End Date Anthony Tam MD [address] [place] [address] [email or web address] PCP - General Internal Medicine 11/24/19 Roge Car DO [email or web address] Primary Oncologist Hematology and Oncology 03/24/18 Gomez Cunha MD [address] [place] [address] [address] [place] [address] [email or web address] Obstetrics and Gynecology 01/26/23 documented as of this encounter Additional Source Comments The information contained in this document represents components of the legal health record. It is not the complete legal health record.[facility]
--- OUTSIDE RECORDS SUMMARY | 2024-11-23 11:18 | XMS_ITS | Encounter Summary ---
Author Organization [facility] Address [address] [place] [address] [place] [address] Phone Care Team Providers Care Infusion Pharmacist Name Role Phone Joceline Roge Ji DO Unavailable [phone] Anthony Tam MD Primary Care Provider [phone] Gomez Cunha MD Unavailable [phone] Encounter Details Date Type Department Care Team (Late st Contact Info) Description 11/14/2024 Orders Only [facility] Internal Medicine [address] [place] [address] Provider, MD Gerardo [address] [place] [address] Social History Tobacco Use Types [...] high school, GED, job training, learning the Welsh language, technical skills, or developing parenting skills)? [...] learning more? Yes 01/26/2023 Our hospital collaborates [facility] community organizations that help patients sign up for SNAP and access healthy nutritious foods. Can we give your contact information to our community partner so that they can reach out and help you enroll in SNAP? Yes 01/26/2023 Benefits received from [facility]? Not on file 01/08 WIC is a [...] Description 01/03/2025 3:30 PM EDT Office Visit [facility] [address] [place] [address] 3rd [facility], [address] [place] [address] Vanessa Lomax, BENIGNO [address] [place] [address], [address] [address] 01/09/2025 3:30 PM EST Office Visit [facility] Internal Medicine [address] [place] [address] Anthony Tam MD [address] [place] [address] documented as of this encounter Procedures Procedure [...] documented as of this encounter Care Teams Infusion Pharmacist Relationship Specialty Start Date End Date Anthony Tam MD [address] [place] [address] [email or web address] PCP - General Internal Medicine 11/24/19 Roge Car DO [email or web address] Primary Oncologist Hematology and Oncology 03/24/18 Gomez Cunha MD [address] [place] [address], [facility] [address] [place] [address] [email or web address] Obstetrics and Gynecology 01/26/23 documented as of this encounter Additional Source Comments The information contained in this document represents components of the legal health record. It is not the complete legal health record.[facility]
--- OUTSIDE RECORDS SUMMARY | 2024-11-23 11:18 | XMS_ITS | Encounter Summary ---
Author Organization [facility] Address [facility] [address] [place] [address] Phone Care Team Providers Care Wet Wheeler Name Role Phone Roge Car DO Unavailable [phone] Anthony Tam MD Primary Care Provider [phone] Gomez Cunha MD Unavailable [phone] Encounter Details Date Type Department Care Team (Late st Contact Info) Description 12/15/2022 Procedure Pass [facility], [address] [address] Social History Tobacco Use Types Packs/Day Years [...] Description 01/03/2025 3:30 PM EDT Office Visit [facility] [address] [place] [address] 3rd Floor, [address] [place] [address] Vanessa Lomax, BENIGNO 22 [facility], [address] [place] [address] 01/09/2025 3:30 PM EST Office Visit [facility] Internal Medicine [address] [place] [address] Anthony Tam MD [address] [place] [address] [email or web address] documented as of this encounter Visit Diagnoses Not on filedocumented in this encounter Additional Health Concerns Assessment Noted Time PHQ-2 Depression Total Score: 0 01/27/20 23 2:24 PM EST documented as of this encounter Care Teams Wet Wheeler Relationship Specialty Start Date End Date Anthony Tam MD [address] [place] [address] [email or web address] PCP - General Internal Medicine 11/24/19 Roge Car DO [email or web address] Primary Oncologist Hematology and Oncology 03/24/18 Gomez Cunha MD [address] [place] [address], [address] [address] [email or web address] Obstetrics and Gynecology 01/26/23 documented as of this encounter Additional Source Comments The information contained in this document represents components of the legal health record. It is not the complete legal health record.[facility]
--- OUTSIDE RECORDS SUMMARY | 2024-11-23 11:18 | XMS_ITS | Clinical Summary ---
Author Organization [facility] Address [address] [place] [address] Phone Care Team Providers Care Dye Worker Name Role Phone Anthony Tam MD Primary Care Provider [phone] Allergies No known active allergies Medications No [...] patient's age to complete this topic Insurance [facility] Care Teams Dye Worker Relationship Specialty Start Date End Date Anthony Tam MD [address] [place] [address] PCP - General Internal Medicine 05/02/24
--- OUTSIDE RECORDS SUMMARY | 2024-11-23 11:18 | XMS_ITS | Encounter Summary ---
Author Organization [facility] Address [facility] Skinny [facility] [address] [place] [address] Phone Care Team Providers Care Mold Carpenter Name Role Phone JocelineRoge DO Unavailable [phone] Anthony Tam MD Unavailable [phone] Anthony Tam MD Primary Care Provider [phone] Gomez Cunha MD Unavailable [phone] Encounter Details Date Type Department Care Team (Late st Contact Info) Description 12/27/2020 Procedure Pass [address] [address] Social History Tobacco Use Types Packs/Day Years [...] high school, GED, job training, learning the Comoran language, technical skills, or developing parenting skills)? [...] Description 01/03/2025 3:30 PM EDT Office Visit [facility] [address] [place] [address] 3rd Floor, [address] [place] [address] Vanessa Lomax, BENIGNO 22 [facility], [address] [address] 01/09/2025 3:30 PM EST Office Visit [facility] [place] [facility] Medicine [address] [place] [address] Anthony Tam MD [address] [place] [address] documented as of this encounter Visit Diagnoses Not on filedocumented in this encounter Additional Health Concerns Assessment Noted Time PHQ-2 Depression Total Score: 1 02/14/20 20 10:14 AM EST documented as of this encounter Care Teams Mold Carpenter Relationship Specialty Start Date End Date Anthony Tam MD [address] [place] [address] PCP - General Internal Medicine 11/24/19 Roge Car DO [email or web address] Primary Oncologist Hematology and Oncology 03/24/18 Anthony Tam MD [address] [place] [address] Insurance Assigned Provider 06/12/18 11/15/22 Gomez Cunha MD [address] [place] [address], [address] [address] Obstetrics and Gynecology 01/26/23 documented as of this encounter Additional Source Comments The information contained in this document represents components of the legal health record. It is not the complete legal health record.[facility]
--- OUTSIDE RECORDS SUMMARY | 2024-11-23 11:18 | XMS_ITS | Encounter Summary ---
Author Organization [facility] Address [address] [place] [address] Phone Care Team Providers Care Rn Managed Care Name Role Phone JocelineRoge DO Unavailable [phone] Anthony Tam MD Unavailable [phone] Anthony Tam MD Primary Care Provider [phone] Gomez Cunha MD Unavailable [phone] Encounter Details Date Type Department Care Team (Late st Contact Info) Description 11/24/2019 Ancillary Orders [facility] Internal Medicine [address] [place], [place] [phone] Anthony Tam MD [address] [place], [place] [phone] [email or web address] Breast screening Social History [...] Description 01/03/2025 3:30 PM EDT Office Visit [facility] [address] [place] [address] 3rd Floor, [address] [place] [address] Vanessa Lomax, BENIGNO [address] [place] [address], [address] [address] 01/09/2025 3:30 PM EST Office Visit [facility] [place] [facility] Medicine [address] [place], [place] [phone] Anthony Tam MD [address] [place] [address] documented as of this encounter Results * [...] documented as of this encounter Care Teams Rn Managed Care Relationship Specialty Start Date End Date Anthony Tam MD [address] [place] [address] [email or web address] PCP - General Internal Medicine 11/24/19 Roge Car DO [email or web address] Primary Oncologist Hematology and Oncology 03/24/18 Anthony Tam MD [address] [place] [address] [email or web address] Insurance Assigned Provider 06/12/18 11/15/22 Gomez Cunha MD [address] [place] [address] [address] [place] [address] [email or web address] Obstetrics and Gynecology 01/26/23 documented as of this encounter Additional Source Comments The information contained in this document represents components of the legal health record. It is not the complete legal health record.[facility]
--- OUTSIDE RECORDS SUMMARY | 2024-11-23 11:18 | XMS_ITS | Encounter Summary ---
Author Organization [facility] Address [address] [place] [address] Phone Care Team Providers Care Edge Glue Machine Tender Name Role Phone JocelineRoge DO Unavailable [phone] Anthony Tam MD Unavailable [phone] Anthony Tam MD Primary Care Provider [phone] Gomez Cunha MD Unavailable [phone] Encounter Details Date Type Department Care Team (Latest Contact Info) Description 01/22/2022 Transcribe Orders Virtual Department [address] [place] [address] Anthony Tam MD [address] [place] [address] [email or web address] Breast screening (Primary Dx) [...] high school, GED, job training, learning the Latvian language, technical skills, or developing parenting skills)? [...] Description 01/03/2025 3:30 PM EDT Office Visit [facility] [address] [place] [address] 3rd Floor, [address] [place] [address] Vanessa Lomax, BENIGNO 22 [facility], [address] [place] [address] 01/09/2025 3:30 PM EST Office Visit [facility] [place] [facility] Medicine [address] [place] [address] Anthony Tam MD [address] [place] [address] [email or web address] documented as of this [...] documented as of this encounter Care Teams Edge Glue Machine Tender Relationship Specialty Start Date End Date Atnhony Tam MD [address] [place] [address] [email or web address] PCP - General Internal Medicine 11/24/19 Roge Car DO [email or web address] Primary Oncologist Hematology and Oncology 03/24/18 Anthony Tam MD [address] [place] [address] [email or web address] Insurance Assigned Provider 06/12/18 11/15/22 Gomez Cunha MD [address] [place] [address] Obstetrics and Gynecology 01/26/23 documented as of this encounter Additional Source Comments The information contained in this document represents components of the legal health record. It is not the complete legal health record.[facility]
--- OUTSIDE RECORDS SUMMARY | 2024-11-23 11:18 | XMS_ITS | Encounter Summary ---
Author Organization [facility] Address [address] [place] [address] Phone Care Team Providers Care Answering Service Agent Name Role Phone Anthony Tam MD Primary Care Provider [phone] Roge Car DO Unavailable Anthony Tam MD Unavailable [phone] Anthony Tam MD Primary Care Provider [phone] Gomez Cunha MD Unavailable [phone] Encounter Details Date Type Department Care Team (Late st Contact Info) Description 05/11/2018 Procedure Pass [facility] MAIN PERIOP DEPT [address] [place] [address] [phone] Social History Tobacco Use Types Packs/Day Years [...] Description 01/03/2025 3:30 PM EDT Office Visit [facility] [address] [facility] 3rd Floor, [address] [place] [address] Vanessa Lomax, BENIGNO 22 [facility], [address] [place] [address] [email or web address] 01/09/2025 3:30 PM EST Office Visit [facility] Internal Medicine [address] [place] [address] Anthony Tam MD [address] [place] [address] [email or web address] documented as of this encounter Visit Diagnoses Not on filedocumented in this encounter Additional Health Concerns Infection Onset Date Last Indicated Resolved Time CoV-Risk 07/19/2020 07/19/2020 07/29/2020 1:24 AM EDT Assessment Noted Time PHQ-2 Depression Total Score: 0 01/05/20 18 10:38 AM EDT documented as of this encounter Care Teams Answering Service Agent Relationship Specialty Start Date End Date Anthony Tam MD [address] [place] [address] [email or web address] PCP - General Internal Medicine 01/19/17 11/23/19 Anthony aTm MD [address] [place] [address] [email or web address] PCP - General Internal Medicine 11/24/19 Roge Car DO 40 [place] [address] [email or web address] Primary Oncologist Hematology and Oncology 03/24/18 Anthony Tam MD [address] [place] [address] [email or web address] Insurance Assigned Provider 06/12/18 11/15/22 Gomez Cunha MD [address] [place] [address], [address] [place] [address] [email or web address] Obstetrics and Gynecology 01/26/23 documented as of this encounter Additional Source Comments The information contained in this document represents components of the legal health record. It is not the complete legal health record.[facility]
--- OUTSIDE RECORDS SUMMARY | 2024-11-23 11:18 | XMS_ITS | Encounter Summary ---
Author Organization [facility] Address [address] [place] [address] Phone Care Team Providers Care Water/Wastewater Project Engineer Name Role Phone Anthony Tam MD Primary Care Provider [phone] Anthony Tam MD Unavailable [phone] Roge Car DO Unavailable [phone] Anthony Tam MD Unavailable [phone] Anthony Tam MD Primary Care Provider [phone] Gomez Cunha MD Unavailable [phone] Encounter Details Date Type Department Care Team (Late st Contact Info) Description 04/17/[address]illary [address] [facility] Internal Medicine [address] [place], [place] [phone] Anthony Tam MD [address] [place], [place] [phone] [email or web address] Breast screening Social [...] Description 01/03/2025 3:30 PM EDT Office Visit [facility] [address] [facility] 3rd Floor, [address] [place], [place] [phone] Vanessa Lomax DNP [address] [facility], [address] [place], [place] [phone] 01/09/2025 3:30 PM EST Office Visit [facility] Internal Medicine [address] [place], [place] [phone] Anthony Tam MD [address] [place], [place] [phone] documented as of this encounter Results * BI MAMMOGRAM SCREENING WITH TOMOSYNTHESIS WITH CAD (BILATERAL) (05/28/2017 9:27 AM EDT) Anatomical Region Laterality Modality Breast Left, Breast Right, Breast Bilateral Bila teral Mammography 05/28/2017 9:44 AM EDT Impressions 05/28/2017 9:46 AM EDT No mammographic evidence of malignancy. BI-RADS CATEGORY: 1 - Negative. DENSITY: The breast tissue is almost entirely fat. POS - [id number] Narrative 05/28/2017 9:46 AM EDT Standard digital [...] tissue is almost entirely fat. POS - [id number] Anthony Tam MD IMG MG EXAMS Final [...] documented as of this encounter Care Teams Water/Wastewater Project Engineer Relationship Specialty Start Date End Date Anthony Tam MD [address] [place] [address] PCP - General Internal Medicine 01/19/17 11/23/19 Anthony Tam MD [address] [place] [address] PCP - General Internal Medicine 11/24/19 Anthony Tam MD [address] [place] [address] Insurance Assigned Provider 05/02/17 01/09/18 Roge Car DO [address] [place] [address] [email or web address] Primary Oncologist Hematology and Oncology 03/24/18 Anthony Tam MD [address] [place] [address] [email or web address] Insurance Assigned Provider 06/12/18 11/15/22 Gomez Cunha MD [address] [place] [address], [facility] [address] [place] [address] [email or web address] Obstetrics and Gynecology 01/26/23 documented as of this encounter Additional Source Comments The information contained in this document represents components of the legal health record. It is not the complete legal health record.[facility]
--- OUTSIDE RECORDS SUMMARY | 2024-11-23 11:18 | XMS_ITS | Encounter Summary ---
Author Organization [facility] Address [address] [place] [address] Phone Care Team Providers Care Ticketing Clerk Name Role Phone JocelineRoge DO Unavailable [phone] Anthony Tam MD Unavailable Anthony Tam MD Primary Care Provider [phone] Gomez Cunha MD Unavailable [phone] Encounter Details Date Type Department Care Team (Late st Contact Info) Description 11/24/2019 Procedure Pass [facility], [address] [address] Social History Tobacco Use Types Packs/Day Years [...] high school, GED, job training, learning the Swiss language, technical skills, or developing parenting skills)? [...] Description 01/03/2025 3:30 PM EDT Office Visit [facility] [address] [place] [address] 3rd Floor, [address] [place] [address] Vanessa Lomax, BENIGNO 22 [facility], [address] [address] 01/09/2025 3:30 PM EST Office Visit [facility] Internal Medicine 40 [place] [address] Anthony Tam MD 40 [place] [address] documented as of this encounter Visit Diagnoses Not on filedocumented in this encounter Additional Health Concerns Infection Onset Date Last Indicated Resolved Time CoV-Risk 07/19/2020 07/19/2020 07/29/2020 1:24 AM EDT Assessment Noted Time PHQ-2 Depression Total Score: 0 11/06/19 19 12:59 PM EDT documented as of this encounter Care Teams Ticketing Clerk Relationship Specialty Start Date End Date Anthony Tam MD 40 [place] [address] [email or web address] PCP - General Internal Medicine 11/24/19 Roge Car DO [email or web address] Primary Oncologist Hematology and Oncology 03/24/18 Anthony Tam MD [address] [place] [address] [email or web address] Insurance Assigned Provider 06/12/18 11/15/22 Gomez Cunha MD [address] [place] [address] [email or web address] Obstetrics and Gynecology 01/26/23 documented as of this encounter Additional Source Comments The information contained in this document represents components of the legal health record. It is not the complete legal health record.[facility]
--- OUTSIDE RECORDS SUMMARY | 2024-11-23 11:18 | XMS_ITS | Encounter Summary ---
Author Organization [facility] Address [facility] [address] [place] [address] Phone Care Team Providers Care Cook Starch Name Role Phone Anthony Tam MD Primary Care Provider [phone] Roge Car DO Unavailable Anthony Tam MD Unavailable [phone] Anthony Tam MD Primary Care Provider [phone] Gomez Cunha MD Unavailable [phone] Reason for Visit * Auth/Cert Specialty Diagnoses / Procedures Referred By Natanael t Referred To Contact Diagnoses Compression of brain PSEUDOTUMOR B/L Procedures ID DECOMPRESS OPTIC NERVE OPTIC NERVE SHEATH FENESTRATION Referral ID Status Reason Start Date Expiration Date Visits Re quested Visits Authorized [id number] 1 1 Encounter Details Date Type Department Care Team (Late st Contact Info) Description 05/11/2018 Hospital Encounter [facility] MAIN PERIOP DEPT [address] [place] [phone] Josué Barros MD [address] [place] [address], [address] [place] [address] [email or web address] Social History Tobacco Use Types Packs/Day Years [...] high school, GED, job training, learning the Irish language, technical skills, or developing parenting [...] learning more? Yes 01/26/2023 Our hospital collaborates [facility] community organizations that help patients [...] Description 01/03/2025 3:30 PM EDT Office Visit [facility] [address] [place] [address] 3rd Floor, [address] [place] [address] Vanessa Lomax, BENIGNO 22 [facility], [address] [place] [address] [email or web address] 01/09/2025 3:30 PM EST Office Visit [facility] Internal Medicine [address] [place] [address] Anthony Tam MD 40 [place], [place] [phone] [email or web address] documented as of this encounter Visit Diagnoses Not on filedocumented in this encounter Additional Health Concerns Infection Onset Date Last Indicated Resolved Time CoV-Risk 07/19/2020 07/19/2020 07/29/2020 1:24 AM EDT Assessment Noted Time PHQ-2 Depression Total Score: 0 01/05/20 18 10:38 AM EDT documented as of this encounter Care Teams Cook Starch Relationship Specialty Start Date End Date Anthony Tam MD [address] [place] [address] [email or web address] PCP - General Internal Medicine 01/19/17 11/23/19 Anthony Tam MD [address] [place] [address] PCP - General Internal Medicine 11/24/19 Roge Car DO [address] [place] [address] [email or web address] Primary Oncologist Hematology and Oncology 03/24/18 Anthony Tam MD [address] [place] [address] [email or web address] Insurance Assigned Provider 06/12/18 11/15/22 Gomez Cunha MD [address] [place] [address], [facility] [address] [place] [address] Obstetrics and Gynecology 01/26/23 documented as of this encounter Additional Source Comments The information contained in this document represents components of the legal health record. It is not the complete legal health record.[facility]
--- OUTSIDE RECORDS SUMMARY | 2024-11-23 11:18 | XMS_ITS | Encounter Summary ---
Author Organization [facility] Address [address] [place] [address] [place] [address] Phone Care Team Providers Care Supervisor Stitching Department Name Role Phone Joceline Roge Ji DO Unavailable [phone] Anthony Tam MD Primary Care Provider [phone] Gomez Cunha MD Unavailable [phone] Encounter Details Date Type Department Care Team (Late st Contact Info) Description 11/15/2024 Orders Only [facility] Internal Medicine [address] [place] [address] Provider, MD Gerardo [address] [place] [address] Social History Tobacco Use Types [...] high school, GED, job training, learning the [place] language, technical skills, or developing parenting skills)? [...] learning more? Yes 01/26/2023 Our hospital collaborates [facility] community organizations that help patients sign up for SNAP and access healthy nutritious foods. Can we give your contact information to our community partner so that they can reach out and help you enroll in SNAP? Yes 01/26/2023 Benefits received from [facility]? Not on file 01/08 WIC is a [...] Description 01/03/2025 3:30 PM EDT Office Visit [facility] [address] [place] [address] 3rd Floor, [address] [place] [address] Vanessa Lomax, BENIGNO [address] [place] [address], [address] [address] 01/09/2025 3:30 PM EST Office Visit [facility] Internal Medicine [address] [place] [address] Anthony Tam MD 40 [place] [address] documented as of this encounter Procedures Procedure Name Priority Date/Time Associated Diagnosis Comments OUTSIDE XR IMAGING REPORT ONLY Routine 11/15/2024 2:03 PM EDT documented in this encounter Results * Outside XR Imaging Report Only (11/15/2024 2:03 PM EDT) us Historical Provider MD IMG XR CHEST Final Res ult documented in this encounter Visit Diagnoses Not on filedocumented in this encounter Additional Health Concerns Assessment Noted Time PHQ-9 Depression Total Score: 17 025 3:06 PM EST PHQ-2 Depression Total Score: 0 08/03/19 25 2:47 PM EDT documented as of this encounter Care Teams Supervisor Stitching Department Relationship Specialty Start Date End Date Anthony Tam MD [address] [place] [address] [email or web address] PCP - General Internal Medicine 11/24/19 Roge Car DO [email or web address] Primary Oncologist Hematology and Oncology 03/24/18 Gomez Cunha MD [address] [place] [address], [facility] [address] [place] [address] [email or web address] Obstetrics and Gynecology 01/26/23 documented as of this encounter Additional Source Comments The information contained in this document represents components of the legal health record. It is not the complete legal health record.[facility]
--- OUTSIDE RECORDS SUMMARY | 2024-11-23 11:19 | XMS_ITS | Encounter Summary ---
Author Organization [facility] Address [address] [place] [address] [place] [address] Phone Care Team Providers Care Leather Fitter Name Role Phone Roge Car DO Unavailable [phone] Anthony Tam MD Unavailable [phone] Anthony Tam MD Primary Care Provider [phone] Gomez uCnha MD Unavailable [phone] Encounter Details Date Type Department Care Team (Late st Contact Info) Description 10/23/2020 Procedure Pass [facility] [address] [place] [address] Social History Tobacco Use Types Packs/Day Years [...] high school, GED, job training, learning the German language, technical skills, or developing parenting skills)? [...] Description 01/03/2025 3:30 PM EDT Office Visit [facility] [address] [place] [place] [address] 3rd Floor, [address] [place] [address] Vanessa Lomax, BENIGNO 22 [facility], [address] [address] 01/09/2025 3:30 PM EST Office Visit [facility] Internal Medicine [address] [place] [address] Anthony Tam MD [address] [place] [address] documented as of this encounter Visit Diagnoses Not on filedocumented in this encounter Additional Health Concerns Assessment Noted Time PHQ-2 Depression Total Score: 1 02/14/20 20 10:14 AM EST documented as of this encounter Care Teams Leather Fitter Relationship Specialty Start Date End Date Anthony Tam MD [address] [place] [address] PCP - General Internal Medicine 11/24/19 Roge Car DO [email or web address] Primary Oncologist Hematology and Oncology 03/24/18 Anthony Tam MD [address] [place] [address] Insurance Assigned Provider 06/12/18 11/15/22 Gomez Cunha MD [address] [place] [address] Obstetrics and Gynecology 01/26/23 documented as of this encounter Additional Source Comments The information contained in this document represents components of the legal health record. It is not the complete legal health record.[facility]
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
--- OUTSIDE RECORDS SUMMARY | 2024-11-23 11:19 | XMS_ITS | Encounter Summary ---
Author Organization [facility] Address [address] [place] [address] [place] [address] Phone Care Team Providers Care Shake Splitter Name Role Phone Joceline Roeg Ji DO Unavailable [phone] Anthony Tam MD Primary Care Provider [phone] Gomez Cunha MD Unavailable [phone] Encounter Details Date Type Department Care Team (Late st Contact Info) Description 08/05/2024 Procedure Pass Echo Lab [address] [place], [place] [phone] Social History Tobacco Use Types Packs/Day Years [...] high school, GED, job training, learning the [place] language, technical skills, or developing parenting skills)? [...] learning more? Yes 01/26/2023 Our hospital collaborates [facility] community organizations that help patients sign [...] Description 01/03/2025 3:30 PM EDT Office Visit [facility] [address] [place] [address] 3rd Floor, [address] [place] [address] Vanessa Lomax, BENIGNO [address] [address] 01/09/2025 3:30 PM EST Office Visit [facility] Internal Medicine [address] [place] [address] Anthony Tam MD [address] [place] [address] documented as of this encounter Visit Diagnoses Not on filedocumented in this encounter Additional Health Concerns Assessment Noted Time PHQ-9 Depression Total Score: 17 025 3:06 PM EST PHQ-2 Depression Total Score: 0 08/03/19 25 2:47 PM EDT documented as of this encounter Care Teams Shake Splitter Relationship Specialty Start Date End Date Anthony Tam MD [address] [place] [address] [email or web address] PCP - General Internal Medicine 11/24/19 Roge Car DO [email or web address] Primary Oncologist Hematology and Oncology 03/24/18 Gomez Cunha MD [address] [place] [address] [email or web address] Obstetrics and Gynecology 01/26/23 documented as of this encounter Additional Source Comments The information contained in this document represents components of the legal health record. It is not the complete legal health record.[facility]
--- OUTSIDE RECORDS SUMMARY | 2024-11-23 11:19 | XMS_ITS | Encounter Summary ---
Author Organization [facility] Address [address] [place] [address] Phone Care Team Providers Care Enrollment Management Coordinator Name Role Phone Roge Car DO Unavailable [phone] Anthony Tam MD Unavailable [phone] Anthony Tam MD Primary Care Provider [phone] Gomez Cunha MD Unavailable [phone] Encounter Details Date Type Department Care Team (Late st Contact Info) Description 10/23/2020 Procedure Pass Non-Invasive Cardiology [address] [place] [address] Social History Tobacco Use Types Packs/Day Years [...] high school, GED, job training, learning the [place] language, technical skills, or developing parenting skills)? [...] is your housing situation today? I have ildia mars 08/09/2020 How many times have you [...] Description 01/03/2025 3:30 PM EDT Office Visit [facility] [address] [place] [address] 3rd Floor, [address] [place] [address] Vanessa Lomax, BENIGNO 22 [facility], [address] [address] 01/09/2025 3:30 PM EST Office Visit [facility] Internal Medicine [address] [place] [address] Anthony Tam MD [address] [place] [address] documented as of this encounter Visit Diagnoses Not on filedocumented in this encounter Additional Health Concerns Assessment Noted Time PHQ-2 Depression Total Score: 1 02/14/20 20 10:14 AM EST documented as of this encounter Care Teams Enrollment Management Coordinator Relationship Specialty Start Date End Date Anthony Tam MD [address] [place] [address] PCP - General Internal Medicine 11/24/19 Roge Car DO [email or web address] Primary Oncologist Hematology and Oncology 03/24/18 Anthony Tam MD [address] [place] [address] Insurance Assigned Provider 06/12/18 11/15/22 Gomez Cunha MD [address] [place] [address] Obstetrics and Gynecology 01/26/23 documented as of this encounter Additional Source Comments The information contained in this document represents components of the legal health record. It is not the complete legal health record.[facility]
--- OUTSIDE RECORDS SUMMARY | 2024-11-23 11:19 | XMS_ITS | Encounter Summary ---
Author Organization [facility] Address [address] [place] [address] Phone Care Team Providers Care Clammer Name Role Phone Anthony Tam MD Primary Care Provider [phone] Anthony Tam MD Unavailable [phone] Roge Car DO Unavailable [phone] Anthony Tam MD Unavailable [phone] Anthony Tam MD Primary Care Provider [phone] Gomez Cunha MD Unavailable [phone] Encounter Details Date Type Department Care Team (Late st Contact Info) Description 04/08/2017 Procedure Pass [facility], [address] [address] Social History Tobacco Use Types Packs/Day Years [...] Description 01/03/2025 3:30 PM EDT Office Visit [facility] [address] [place] [address] 3rd Floor, [address] [place] [address] Vanessa Lomax, BENIGNO 22 [facility], [address] [place] [address] 01/09/2025 3:30 PM EST Office Visit [facility] Internal Medicine [address] [place], [place] [phone] Anthony Tam MD [address] [place], [place] [phone] documented as of this encounter Visit Diagnoses Not on filedocumented in this encounter Additional Health Concerns Infection Onset Date Last Indicated Resolved Time CoV-Risk 07/19/2020 07/19/2020 07/29/2020 1:24 AM EDT Assessment Noted Time PHQ-2 Depression Total Score: 0 01/20/20 17 11:33 AM EST documented as of this encounter Care Teams Clammer Relationship Specialty Start Date End Date Anthony Tam MD 40 [place] [address] PCP - General Internal Medicine 01/19/17 11/23/19 Anthony Tam MD [address] [place] [address] PCP - General Internal Medicine 11/24/19 Anthony Tam MD [address] [place] [address] Insurance Assigned Provider 05/02/17 01/09/18 Roge Car DO 40 [place] [address] [email or web address] Primary Oncologist Hematology and Oncology 03/24/18 Anthony Tam MD [address] [place] [address] [email or web address] Insurance Assigned Provider 06/12/18 11/15/22 Gomez Cunha MD [address] [place] [address], [facility] [address] [place] [address] [email or web address] Obstetrics and Gynecology 01/26/23 documented as of this encounter Additional Source Comments The information contained in this document represents components of the legal health record. It is not the complete legal health record.[facility]
--- OUTSIDE RECORDS SUMMARY | 2024-11-23 11:19 | XMS_ITS | Encounter Summary ---
Author Organization [facility] Address [address] [place] [address] [place] [address] Phone Care Team Providers Care Storage Architect Name Role Phone JocelineRoge DO Unavailable [phone] Anthony Tam MD Unavailable [phone] Anthony Tam MD Primary Care Provider [phone] Gomez Cunha MD Unavailable [phone] Encounter Details Date Type Department Care Team (Late st Contact Info) Description 02/25/2022 Procedure Pass Non-Invasive Cardiology [address] [place] [address] Social History Tobacco Use Types Packs/Day Years [...] GED, job training, learning the [place] language, technical skills, or developing parenting skills)? [...] Description 01/03/2025 3:30 PM EDT Office Visit [facility] [address] [place] [address] 3rd Floor, [address] [place] [address] Vanessa Lomax, BENIGNO 22 [facility], [address] [place] [address] 01/09/2025 3:30 PM EST Office Visit [facility] Medicine [address] [place] [address] Anthony Tam MD 40 [place] [address] [email or web address] documented as of this encounter Visit Diagnoses Not on filedocumented in this encounter Additional Health Concerns Assessment Noted Time PHQ-2 Depression Total Score: 0 02/11/20 22 7:59 PM EST documented as of this encounter Care Teams Storage Architect Relationship Specialty Start Date End Date Anthony Tam MD [address] [place] [address] [email or web address] PCP - General Internal Medicine 11/24/19 Roge Car [email or web address] Primary Oncologist Hematology and Oncology 03/24/18 Anthony Tam MD [address] [place] [address] [email or web address] Insurance Assigned Provider 06/12/18 11/15/22 Gomez Cunha MD [address] [place] [address] Obstetrics and Gynecology 01/26/23 documented as of this encounter Additional Source Comments The information contained in this document represents components of the legal health record. It is not the complete legal health record.[facility]
--- OUTSIDE RECORDS SUMMARY | 2024-11-23 11:19 | XMS_ITS | Encounter Summary ---
Author Organization [facility] Address [address] [place] [address] [place] [address] Phone Care Team Providers Care Flour Distributor Name Role Phone Roge Car DO Unavailable [phone] Anthony Tam MD Unavailable [phone] Anthony Tam MD Primary Care Provider [phone] Gomez Cunha MD Unavailable [phone] Encounter Details Date Type Department Care Team (Late st Contact Info) Description 01/22/2022 Procedure Pass [address] [address] Social History Tobacco Use Types Packs/Day Years [...] high school, GED, job training, learning the Vincentian language, technical skills, or developing parenting skills)? [...] Description 01/03/2025 3:30 PM EDT Office Visit [facility] [address] [place] [address] 3rd Floor, [address] [place] [address] Vanessa Lomax, BENIGNO 22 [facility], [address] [place] [address] [email or web address] 01/09/2025 3:30 PM EST Office Visit [facility] Internal Medicine 40 [place] [address] Anthony Tam MD 40 [place] [address] [email or web address] documented as of this encounter Visit Diagnoses Not on filedocumented in this encounter Additional Health Concerns Assessment Noted Time PHQ-2 Depression Total Score: 0 02/11/20 22 7:59 PM EST documented as of this encounter Care Teams Flour Distributor Relationship Specialty Start Date End Date Anthony Tam MD 40 [place] [address] [email or web address] PCP - General Internal Medicine 11/24/19 Roge Car DO [email or web address] Primary Oncologist Hematology and Oncology 03/24/18 Anthony Tam MD 40 [place] [address] [email or web address] Insurance Assigned Provider 06/12/18 11/15/22 Gomez Cunha MD [address] [place] [address] Obstetrics and Gynecology 01/26/23 documented as of this encounter Additional Source Comments The information contained in this document represents components of the legal health record. It is not the complete legal health record.[facility]
--- OUTSIDE RECORDS SUMMARY | 2024-11-23 11:19 | XMS_ITS | Encounter Summary ---
Author Organization [facility] Address [address] [place] [address] Phone Care Team Providers Care Commuter Train Operator Name Role Phone Anthony Tam MD Primary Care Provider [phone] Anthony Tam MD Unavailable [phone] Roge Car DO Unavailable [phone] Anthony Tam MD Unavailable [phone] Anthony Tam MD Primary Care Provider [phone] Gomez Cunha MD Unavailable [phone] Encounter Details Date Type Department Care Team (Late st Contact Info) Description 04/02/2017 Procedure Pass [facility], Ct Scan - [address] [address] Social History Tobacco Use Types Packs/Day Years [...] Description 01/03/2025 3:30 PM EDT Office Visit [facility] 22 [facility] 3rd Floor, [address] [place], [place] [phone] Vanessa Lomax, BENIGNO 22 [facility], [address] [place] [address] 01/09/2025 3:30 PM EST Office Visit [facility] Internal Medicine 40 [place], [place] [phone] Anthony Tam MD 40 [place], [place] [phone] documented as of this encounter Visit Diagnoses Not on filedocumented in this encounter Additional Health Concerns Infection Onset Date Last Indicated Resolved Time CoV-Risk 07/19/2020 07/19/2020 07/29/2020 1:24 AM EDT Assessment Noted Time PHQ-2 Depression Total Score: 0 01/20/20 17 11:33 AM EST documented as of this encounter Care Teams Commuter Train Operator Relationship Specialty Start Date End Date Anthony Tam MD 40 [place] [address] PCP - General Internal Medicine 01/19/17 11/23/19 Anthony Tam MD 40 [place] [address] PCP - General Internal Medicine 11/24/19 Anthony Tam MD 40 [place] [address] Insurance Assigned Provider 05/02/17 01/09/18 Roge Car DO 40 [place] [address] [email or web address] Primary Oncologist Hematology and Oncology 03/24/18 Anthony Tam MD 40 [place] [address] Insurance Assigned Provider 06/12/18 11/15/22 Gomez Cunha MD [address] [place] [address], [facility] [address] [place] [address] Obstetrics and Gynecology 01/26/23 documented as of this encounter Additional Source Comments The information contained in this document represents components of the legal health record. It is not the complete legal health record.[facility]
--- OUTSIDE RECORDS SUMMARY | 2024-11-23 11:19 | XMS_ITS | Encounter Summary ---
Author Organization [facility] Address [address] [place] [address] Phone Care Team Providers Care Cultural Historian Name Role Phone Anthony Tam MD Primary Care Provider [phone] Anthony Tam MD Unavailable [phone] Roge Car DO Unavailable [phone] Anthony Tam MD Unavailable [phone] Anthony Tam MD Primary Care Provider [phone] oGmez Cunha MD Unavailable [phone] Reason for Referral * MRI/CAT Scan - Closed Specialty Diagnoses / Procedures Referred By Contac t Referred To Contact Radiology Diagnoses Dizziness Concussion without loss of consciousness, initial encounter Other complicated headache syndrome Procedures MRI Brain Anthony Tam MD Phone: tel: fax: [email or web address] Referral ID Status Reason Start Date Expiration Date Visits Re quested Visits Authorized [id number] Closed 04/08/2017 06/06/2017 1 1 Encounter Details Date Type Department Care Team (Latest Contact Info) Description 04/08/2017 Ancillary Orders [facility] Internal Medicine [address] [place] [address] Anthony Tam MD 40 [place] [address] [email or web address] Dizziness; Concussion without loss of consciousness, initial [...] Description 01/03/2025 3:30 PM EDT Office Visit [facility] [address] [place] [address] 3rd Floor, [address] [place] [address] Vanessa Lomax, BENIGNO 22 [facility], [address] [address] 01/09/2025 3:30 PM EST Office Visit [facility] Internal Medicine [address] [place] [address] Anthony Tam MD [address] [place] [address] [email or web address] documented as of this encounter Results * MRI BRAIN WITHOUT CONTRAST (04/17/2017 11:49 AM EST) Anatomical Region Laterality Modality Head Magnetic Resonan ce 04/17/2017 12:2 8 PM EST Impressions 04/17/2017 1:04 PM EST No acute intracranial hemorrhage, mass, or infarction is detected. Mild cerebellar tonsillar ectopia again noted. POS - [id number] Edited by: Joanna Sahu on 04/17/2017 12:51 [...] Mildcerebellar tonsillar ectopia again noted. POS - [id number] Edited by: Joanna Sahu on 04/17/2017 12:51 [...] documented as of this encounter Care Teams Cultural Historian Relationship Specialty Start Date End Date Anthony Tam MD 40 [place] [address] [email or web address] PCP - General Internal Medicine 01/19/17 11/23/19 Anthony Tam MD 40 [place] [address] [email or web address] PCP - General Internal Medicine 11/24/19 Anthony Tam MD 40 [place] [address] [email or web address] Insurance Assigned Provider 05/02/17 01/09/18 Roge Car DO 40 [place] [address] [email or web address] Primary Oncologist Hematology and Oncology 03/24/18 Anthony Tam MD 40 [place] [address] [email or web address] Insurance Assigned Provider 06/12/18 11/15/22 Gomez Cunha MD [address] [place] [address], [facility] 102 [place] [address] [email or web address] Obstetrics and Gynecology 01/26/23 documented as of this encounter Additional Source Comments The information contained in this document represents components of the legal health record. It is not the complete legal health record.[facility]
--- OUTSIDE RECORDS SUMMARY | 2024-11-23 11:19 | XMS_ITS | Encounter Summary ---
Author Organization [facility] Address [address] [place] [address] Phone Care Team Providers Care Punch Operator Name Role Phone Anthony Tam MD Primary Care Provider [phone] Anthony Tam MD Unavailable [phone] Roge Car DO Unavailable [phone] Anthony Tam MD Unavailable [phone] Anthony Tam MD Primary Care Provider [phone] Gomez Cunha MD Unavailable [phone] Encounter Details Date Type Department Care Team (Late st Contact Info) Description 04/02/2017 Procedure Pass [facility], Ct Scan - [address] [address] Social History Tobacco Use Types Packs/Day Years [...] 01/03/2025 3:30 PM EDT Office Visit [facility] 22 [facility] 3rd Floor, [address] [place], [place] [phone] Vanessa Lomax, BENIGNO 22 [facility], [address] [place] [address] 01/09/2025 3:30 PM EST Office Visit [facility] Internal Medicine 40 [place], [place] [phone] Anthony Tam MD 40 [place], [place] [phone] documented as of this encounter Visit Diagnoses Not on filedocumented in this encounter Additional Health Concerns Infection Onset Date Last Indicated Resolved Time CoV-Risk 07/19/2020 07/19/2020 07/29/2020 1:24 AM EDT Assessment Noted Time PHQ-2 Depression Total Score: 0 01/20/20 17 11:33 AM EST documented as of this encounter Care Teams Punch Operator Relationship Specialty Start Date End Date Anthony Tam MD 40 [place] [address] PCP - General Internal Medicine 01/19/17 11/23/19 Anthony Tam MD 40 [place] [address] PCP - General Internal Medicine 11/24/19 Anthony Tam MD 40 [place] [address] Insurance Assigned Provider 05/02/17 01/09/18 Roge Car DO 40 [place] [address] [email or web address] Primary Oncologist Hematology and Oncology 03/24/18 Anthony Tam MD 40 [place] [address] [email or web address] Insurance Assigned Provider 06/12/18 11/15/22 Gomez Cunha MD [address] [place] [address], [facility] 102 [place] [address] [email or web address] Obstetrics and Gynecology 01/26/23 documented as of this encounter Additional Source Comments The information contained in this document represents components of the legal health record. It is not the complete legal health record.[facility]
== END 2024-11-23 10:25 | disposition home or self-care (01) ==
LOC: HO.HOS 09:32
PROVIDERS: PCP Internal Medicine
DX: S62.631B Displaced fracture of distal phalanx of left index finger, initial encounter for open fracture (principal)
CPT/HCPCS: 99024

== ENCOUNTER → 2024-11-23 09:35 | Outpatient (BNV) | payer BC, SELFPAY | PROVIDERS: Visit Provider Radiology Diagnostic Radiology | DX: M79.642 Pain in left hand (principal) | CPT/HCPCS: 73130 ==

== ENCOUNTER 2024-12-02 14:32 | Outpatient (AMB) | payer BC, SELFPAY ==
[2024-12-02 14:47] VITALS: BMI 39.5
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
--- OUTSIDE RECORDS SUMMARY | 2024-12-02 15:28 | XMS_ITS | Clinical Summary ---
Author Organization [facility] Address [address] [place] [address] Phone Care Team Providers Care Talent Acquisition Program Manager Name Role Phone Anthony Tma MD Primary Care Provider [phone] Allergies No known active allergies Medications No [...] patient's age to complete this topic Insurance [facility] Care Teams Talent Acquisition Program Manager Relationship Specialty Start Date End Date Anthony Tam MD [address] [place] [address] PCP - General Internal Medicine 05/02/24
== END 2024-12-02 15:49 | disposition home or self-care (01) ==
LOC: HO.HOS 14:32
DX: S62.631B Displaced fracture of distal phalanx of left index finger, initial encounter for open fracture (principal)
CPT/HCPCS: 99024

== ENCOUNTER 2024-12-02 14:32 | Outpatient (REF) | payer BC, SELFPAY ==
--- NOTE | ~2024-12-02 | XR_ITS ---
EXAMINATION: XR HAND 3 OR MORE VIEWS LEFT HISTORY: M79.642 - Pain in left hand COMPARISON: Comparison is made with the prior examination dated 11/23/2024. FINDINGS: Three views of the left hand are submitted. Osseous mineralization is normal. Again seen is a fracture of the dorsal aspect of the base of the distal phalanx of the index finger. The fracture line is not well visualized. The joint spaces are preserved. The soft tissues are unremarkable. XR/XR hand LT min 3V IMPRESSION: Fracture of the dorsal aspect of the base of the distal phalanx of the index finger. Electronically signed by: Gigi Bush MD 12/02/2024 02:47 PM EDT
--- OUTSIDE RECORDS SUMMARY | 2024-12-02 15:28 | XMS_ITS | Encounter Summary ---
Author Organization [facility] Address [address] [place] [address] Phone Care Team Providers Care Log Roller Name Role Phone JocelineRoge DO Unavailable [phone] Anthony Tam MD Unavailable [phone] Anthony Tam MD Primary Care Provider [phone] Gomez Cunha MD Unavailable [phone] Encounter Details Date Type Department Care Team (Late st Contact Info) Description 11/24/2019 Ancillary Orders [facility] Internal Medicine 40 [place], [place] [phone] Anthony Tam MD 40 [place], [place] [phone] [email or web address] Breast screening Social History Tobacco Use Types [...] Description 01/03/2025 3:30 PM EDT Office Visit [facility] [address] [place] [address] 3rd Floor, [address] [place] [address] Vanessa Lomax, BENIGNO [address] [place] [address], [address] [address] 01/09/2025 3:30 PM EST Office Visit [facility] Internal Medicine 40 [place], [place] [phone] Anthony Tam MD 40 [place] [address] documented as of this encounter Results * [...] documented as of this encounter Care Teams Log Roller Relationship Specialty Start Date End Date Anthony Tam MD 40 [place] [address] [email or web address] PCP - General Internal Medicine 11/24/19 Roge Car DO [address] [place] [address] [email or web address] Primary Oncologist Hematology and Oncology 03/24/18 Anthony Tam MD 40 [place] [address] [email or web address] Insurance Assigned Provider 06/12/18 11/15/22 Gomez Cunha MD [address] [place] [address], [facility] [address] [place] [address] [email or web address] Obstetrics and Gynecology 01/26/23 documented as of this encounter Additional Source Comments The information contained in this document represents components of the legal health record. It is not the complete legal health record.[facility]
--- OUTSIDE RECORDS SUMMARY | 2024-12-02 15:29 | XMS_ITS | Encounter Summary ---
Author Organization [facility] Address [address] [place] [address] Phone Care Team Providers Care Oracle Hrms Consultant Name Role Phone Anthony Tam MD Primary Care Provider [phone] Anthony Tam MD Unavailable [phone] Roge Car DO Unavailable [phone] Anthony Tam MD Unavailable [phone] Anthony Tam MD Primary Care Provider [phone] Gomez Cunha MD Unavailable [phone] Encounter Details Date Type Department Care Team (Late st Contact Info) Description 04/02/2017 Procedure Pass [facility], Ct Scan - [address] [address] Social History Tobacco Use Types Packs/Day Years [...] Description 01/03/2025 3:30 PM EDT Office Visit [facility] 22 [facility] 3rd Floor, [address] [place], [place] [phone] Vanessa Lomax, BENIGNO 22 [facility], [address] [place] [address] 01/09/2025 3:30 PM EST Office Visit [facility] Internal Medicine 40 [place], [place] [phone] Anthony Tam MD 40 [place], [place] [phone] documented as of this encounter Visit Diagnoses Not on filedocumented in this encounter Additional Health Concerns Infection Onset Date Last Indicated Resolved Time CoV-Risk 07/19/2020 07/19/2020 07/29/2020 1:24 AM EDT Assessment Noted Time PHQ-2 Depression Total Score: 0 01/20/20 17 11:33 AM EST documented as of this encounter Care Teams Oracle Hr[employer] Consultant Relationship Specialty Start Date End Date Anthony Tam MD 40 [place] [address] PCP - General Internal Medicine 01/19/17 11/23/19 Anthony Tam MD 40 [place] [address] PCP - General Internal Medicine 11/24/19 Anthony Tam MD 40 [place] [address] Insurance Assigned Provider 05/02/17 01/09/18 Roge Car DO [address] [place] [address] [email or web address] Primary Oncologist Hematology and Oncology 03/24/18 Anthony Tam MD [address] [place] [address] [email or web address] Insurance Assigned Provider 06/12/18 11/15/22 Gomez Cunha MD [address] [place] [address], [facility] 102 [place] [address] [email or web address] Obstetrics and Gynecology 01/26/23 documented as of this encounter Additional Source Comments The information contained in this document represents components of the legal health record. It is not the complete legal health record.[facility]
--- OUTSIDE RECORDS SUMMARY | 2024-12-02 15:29 | XMS_ITS | Encounter Summary ---
Author Organization [facility] Address [address] [place] [address] [place] [address] Phone Care Team Providers Care Carpet Cleaning Technician Name Role Phone Roge Car DO Unavailable [phone] Anthony Tam MD Unavailable [phone] Anthony Tam MD Primary Care Provider [phone] Gomez Cunha MD Unavailable [phone] Encounter Details Date Type Department Care Team (Late st Contact Info) Description 01/22/2022 Procedure Pass [address] [address] Social History Tobacco Use Types Packs/Day Years [...] high school, GED, job training, learning the Stateless language, technical skills, or developing parenting skills)? [...] Description 01/03/2025 3:30 PM EDT Office Visit [facility] [address] [place] [address] 3rd Floor, [address] [place] [address] Vanessa Lomax, BENIGNO 22 [facility], [address] [place] [address] [email or web address] 01/09/2025 3:30 PM EST Office Visit [facility] Internal Medicine [address] [place] [address] Anthony Tam MD 40 [place] [address] [email or web address] documented as of this encounter Visit Diagnoses Not on filedocumented in this encounter Additional Health Concerns Assessment Noted Time PHQ-2 Depression Total Score: 0 02/11/20 22 7:59 PM EST documented as of this encounter Care Teams Carpet Cleaning Technician Relationship Specialty Start Date End Date Anthony Tam MD 40 [place] [address] PCP - General Internal Medicine 11/24/19 Roge Car DO [address] [place] [address] [email or web address] Primary Oncologist Hematology and Oncology 03/24/18 Anthony Tam MD 40 [place] [address] Insurance Assigned Provider 06/12/18 11/15/22 Gomez Cunha MD [address] [place] [address] Obstetrics and Gynecology 01/26/23 documented as of this encounter Additional Source Comments The information contained in this document represents components of the legal health record. It is not the complete legal health record.[facility]
--- OUTSIDE RECORDS SUMMARY | 2024-12-02 15:29 | XMS_ITS | Encounter Summary ---
Author Organization [facility] Address [address] [place] [address] Phone Care Team Providers Care Consulting Project Director Name Role Phone JocelineRoge DO Unavailable [phone] Anthony Tam MD Unavailable [phone] Anthony Tam MD Primary Care Provider [phone] Gomez Cunha MD Unavailable [phone] Encounter Details Date Type Department Care Team (Latest Contact Info) Description 01/22/2022 Transcribe Orders Virtual Department [address] [place] [address] Anthony Tam MD 40 [place] [address] [email or web address] Breast screening (Primary Dx) [...] high school, GED, job training, learning the Sami language, technical skills, or developing parenting skills)? [...] Description 01/03/2025 3:30 PM EDT Office Visit [facility] [address] [place] [address] 3rd Floor, [address] [place] [address] Vanessa Lomax, BENIGNO 22 [facility], [address] [place] [address] 01/09/2025 3:30 PM EST Office Visit [facility] 40 [place] [address] Anthony Tam MD 40 [place] [address] [email or web address] documented as of this [...] documented as of this encounter Care Teams Consulting Project Director Relationship Specialty Start Date End Date Anthony Tam MD 40 [place] [address] [email or web address] PCP - General Internal Medicine 11/24/19 Roge Car DO [address] [place] [address] [email or web address] Primary Oncologist Hematology and Oncology 03/24/18 Anthony Tam MD 40 [place] [address] Insurance Assigned Provider 06/12/18 11/15/22 Gomez Cunha MD [address] [place] [address] [email or web address] Obstetrics and Gynecology 01/26/23 documented as of this encounter Additional Source Comments The information contained in this document represents components of the legal health record. It is not the complete legal health record.[facility]
--- OUTSIDE RECORDS SUMMARY | 2024-12-02 15:29 | XMS_ITS | Encounter Summary ---
Author Organization [facility] Address [address] [place] [address] Phone Care Team Providers Care Regional Marketing Manager Name Role Phone Anthony Tam MD Primary Care Provider [phone] Anthony Tam MD Unavailable [phone] Roge Car DO Unavailable [phone] Anthony Tam MD Unavailable [phone] Anthony Tam MD Primary Care Provider [phone] Gomez Cunha MD Unavailable [phone] Encounter Details Date Type Department Care Team (Late st Contact Info) Description 04/02/2017 Procedure Pass [facility], Ct Scan - [address] [address] Social History Tobacco Use Types Packs/Day Years [...] Description 01/03/2025 3:30 PM EDT Office Visit [facility] 22 [facility] 3rd Floor, [address] [place], [place] [address] Vanessa Lomax, BENIGNO 22 [facility], [address] [place] [address] 01/09/2025 3:30 PM EST Office Visit [facility] Internal Medicine 40 [place], [place] [phone] Anthony Tam MD 40 [place], [place] [phone] documented as of this encounter Visit Diagnoses Not on filedocumented in this encounter Additional Health Concerns Infection Onset Date Last Indicated Resolved Time CoV-Risk 07/19/2020 07/19/2020 07/29/2020 1:24 AM EDT Assessment Noted Time PHQ-2 Depression Total Score: 0 01/20/20 17 11:33 AM EST documented as of this encounter Care Teams Regional Marketing Manager Relationship Specialty Start Date End Date Anthony Tam MD 40 [place] [address] PCP - General Internal Medicine 01/19/17 11/23/19 Anthony Tam MD 40 [place] [address] PCP - General Internal Medicine 11/24/19 Anthony Tam MD 40 [place] [address] Insurance Assigned Provider 05/02/17 01/09/18 Roge Car DO [address] [place] [address] [email or web address] Primary Oncologist Hematology and Oncology 03/24/18 Anthony Tam MD [address] [place] [address] [email or web address] Insurance Assigned Provider 06/12/18 11/15/22 Gomez Cunha MD [address] [place] [address], [facility] [address] [place] [address] [email or web address] Obstetrics and Gynecology 01/26/23 documented as of this encounter Additional Source Comments The information contained in this document represents components of the legal health record. It is not the complete legal health record.[facility]
--- OUTSIDE RECORDS SUMMARY | 2024-12-02 15:29 | XMS_ITS | Encounter Summary ---
Author Organization [facility] Address [email or web address] [address] [place] [address] Phone Care Team Providers Care Spinning Machine Tender Name Role Phone JocelineRoge DO Unavailable [phone] Anthony Tam MD Unavailable [phone] Anthony Tam MD Primary Care Provider [phone] Gomez Cunha MD Unavailable [phone] Encounter Details Date Type Department Care Team (Late st Contact Info) Description 12/27/2020 Procedure Pass [address] [address] Social History Tobacco Use Types Packs/Day Years [...] high school, GED, job training, learning the Armenian language, technical skills, or developing parenting skills)? [...] Description 01/03/2025 3:30 PM EDT Office Visit [facility] [address] [place] [address] 3rd Floor, [address] [place] [address] Vanessa Lomax, BENIGNO 22 [facility], [address] [address] 01/09/2025 3:30 PM EST Office Visit [facility] 40 [place] [address] Anthony Tam MD 40 [place] [address] [email or web address] documented as of this encounter Visit Diagnoses Not on filedocumented in this encounter Additional Health Concerns Assessment Noted Time PHQ-2 Depression Total Score: 1 02/14/20 20 10:14 AM EST documented as of this encounter Care Teams Spinning Machine Tender Relationship Specialty Start Date End Date Anthony Tam MD 40 [place] [address] [email or web address] PCP - General Internal Medicine 11/24/19 Roge Car DO [address] [place] [address] [email or web address] Primary Oncologist Hematology and Oncology 03/24/18 Anthony Tam MD 40 [place] [address] [email or web address] Insurance Assigned Provider 06/12/18 11/15/22 Gomez Cunha MD [address] [place] [address] Obstetrics and Gynecology 01/26/23 documented as of this encounter Additional Source Comments The information contained in this document represents components of the legal health record. It is not the complete legal health record.[facility]
--- OUTSIDE RECORDS SUMMARY | 2024-12-02 15:29 | XMS_ITS | Encounter Summary ---
Author Organization [facility] Address [address] [place] [address] [place] [address] Phone Care Team Providers Care Wedding Makeup Artist Name Role Phone Joceline Roge Ji DO Unavailable Anthony Tam MD Primary Care Provider [phone] Gomez Cunha MD Unavailable Encounter Details Date Type Department Care Team (Late st Contact Info) Description 08/05/2024 Procedure Pass [facility] [place], [place] [phone] Social History Tobacco Use Types Packs/Day Years [...] high school, GED, job training, learning the Tongan language, technical skills, or developing parenting skills)? [...] learning more? Yes 01/26/2023 Our hospital collaborates [facility] community organizations that help patients sign [...] PM EDT Office Visit [facility] [address] [place] [address] 3rd Floor, [address] [place] [address] Vanessa Lomax, BENIGNO [address] [address] 01/09/2025 3:30 PM EST Office Visit [facility] 40 [place] [address] Anthony Tam MD 40 [place] [address] documented as of this encounter Visit Diagnoses Not on filedocumented in this encounter Additional Health Concerns Assessment Noted Time PHQ-9 Depression Total Score: 17 025 3:06 PM EST PHQ-2 Depression Total Score: 0 08/03/19 25 2:47 PM EDT documented as of this encounter Care Teams Wedding Makeup Artist Relationship Specialty Start Date End Date Anthony Tam MD 40 [place] [address] [email or web address] PCP - General Internal Medicine 11/24/19 Roge Car DO [address] [place] [address] [email or web address] Primary Oncologist Hematology and Oncology 03/24/18 Gomez Cunha MD [address] [place] [address] [email or web address] Obstetrics and Gynecology 01/26/23 documented as of this encounter Additional Source Comments The information contained in this document represents components of the legal health record. It is not the complete legal health record.[facility]
--- OUTSIDE RECORDS SUMMARY | 2024-12-02 15:29 | XMS_ITS | Encounter Summary ---
Author Organization [facility] Address [address] [place] [address] [place] [address] Phone Care Team Providers Care Real Time Trader Name Role Phone Joceline Roge Ji DO Unavailable [phone] Anthony Tam MD Primary Care Provider [phone] Gomez Cunha MD Unavailable [phone] Encounter Details Date Type Department Care Team (Late st Contact Info) Description 11/14/2024 Orders Only [facility] Internal Medicine 40 [place] [address] Provider, MD Gerardo [address] [place] [address] Social History Tobacco Use Types [...] high school, GED, job training, learning the Gabonese language, technical skills, or developing parenting skills)? [...] learning more? Yes 01/26/2023 Our hospital collaborates [facility] community organizations that help patients sign up for SNAP and access healthy nutritious foods. Can we give your contact information to our community partner so that they can reach out and help you enroll in SNAP? Yes 01/26/2023 Benefits received from [facility]? Not on file 01/08 WIC is a [...] Description 01/03/2025 3:30 PM EDT Office Visit [facility] [address] [place] [address] 3rd [facility], [address] [place] [address] Vanessa Lomax, BENIGNO [address] [place] [address], [address] [address] 01/09/2025 3:30 PM EST Office Visit [facility] Internal Medicine 40 [place] [address] Anthony Tam MD 40 [place] [address] documented as of this encounter Procedures Procedure [...] documented as of this encounter Care Teams Real Time Trader Relationship Specialty Start Date End Date Anthony Tam MD 40 [place] [address] [email or web address] PCP - General Internal Medicine 11/24/19 Roge Car DO [address] [place] [address] [email or web address] Primary Oncologist Hematology and Oncology 03/24/18 Gomez Cunha MD [address] [place] [address] [email or web address] Obstetrics and Gynecology 01/26/23 documented as of this encounter Additional Source Comments The information contained in this document represents components of the legal health record. It is not the complete legal health record.[facility]
--- OUTSIDE RECORDS SUMMARY | 2024-12-02 15:29 | XMS_ITS | Encounter Summary ---
Author Organization [facility] Address [address] [place] [address] Phone Care Team Providers Care Laboratory Inspector Name Role Phone Anthony Tam MD Primary Care Provider [phone] Roge Car DO Unavailable [phone] Anthony Tam MD Unavailable [phone] Anthony Tam MD Primary Care Provider [phone] Gomez Cunha MD Unavailable [phone] Encounter Details Date Type Department Care Team (Late st Contact Info) Description 05/11/2018 Procedure Pass [facility] MA[facility] PERIOP DEPT [address] [place] [address] [phone] Social History Tobacco Use Types Packs/Day Years [...] Description 01/03/2025 3:30 PM EDT Office Visit [facility] 3rd Floor, [address] [place] [address] Vanessa Lomax, BENIGNO 22 [facility], [address] [place] [address] [email or web address] 01/09/2025 3:30 PM EST Office Visit [facility] Internal Medicine [address] [place] [address] Anthony Tam MD 40 [place], [place] [phone] [email or web address] documented as of this encounter Visit Diagnoses Not on filedocumented in this encounter Additional Health Concerns Infection Onset Date Last Indicated Resolved Time CoV-Risk 07/19/2020 07/19/2020 07/29/2020 1:24 AM EDT Assessment Noted Time PHQ-2 Depression Total Score: 0 01/05/20 18 10:38 AM EDT documented as of this encounter Care Teams Laboratory Inspector Relationship Specialty Start Date End Date Anthony Tam MD 40 [place] [address] [email or web address] PCP - General Internal Medicine 01/19/17 11/23/19 Anthony Tam MD [address] [place] [address] [email or web address] PCP - General Internal Medicine 11/24/19 Roge Car DO [address] [place] [address] [email or web address] Primary Oncologist Hematology and Oncology 03/24/18 Anthony Tam MD [address] [place] [address] [email or web address] Insurance Assigned Provider 06/12/18 11/15/22 Gomez Cunha MD [address] [place] [address], [facility] [address] [place] [address] [email or web address] Obstetrics and Gynecology 01/26/23 documented as of this encounter Additional Source Comments The information contained in this document represents components of the legal health record. It is not the complete legal health record.[facility]
--- OUTSIDE RECORDS SUMMARY | 2024-12-02 15:29 | XMS_ITS | Encounter Summary ---
Author Organization [facility] Address [address] [place] [address] Phone Care Team Providers Care Archives Technician Name Role Phone Anthony Tam MD Primary Care Provider [phone] Roge Car DO Unavailable [phone] Anthony Tam MD Unavailable [phone] Anthony Tam MD Primary Care Provider Gomez Cunha MD Unavailable [phone] Reason for Visit * Auth/Cert Specialty Diagnoses / Procedures Referred By Natanael t Referred To Contact Diagnoses Compression of brain PSEUDOTUMOR B/L Procedures NM DECOMPRESS OPTIC NERVE OPTIC NERVE SHEATH FENESTRATION Referral ID Status Reason Start Date Expiration Date Visits Re quested Visits Authorized [id number] 1 1 Encounter Details Date Type Department Care Team (Late st Contact Info) Description 05/11/2018 Hospital Encounter [facility] PERIOP DEPT [address] [place] [phone] Josué Barros MD [address] [place] [address] [email or web address] Social History Tobacco Use Types Packs/Day Years [...] high school, GED, job training, learning the Omani language, technical skills, or developing parenting skills)? [...] Description 01/03/2025 3:30 PM EDT Office Visit [facility] [address] [place] [address] 3rd Floor, [address] [place] [address] Vanessa Lomax, BENIGNO 22 [facility], [address] [place] [address] 01/09/2025 3:30 PM EST Office Visit [facility] Internal Medicine 40 [place] [address] Anthony Tam MD 40 [place], [place] [phone] documented as of this encounter Visit Diagnoses Not on filedocumented in this encounter Additional Health Concerns Infection Onset Date Last Indicated Resolved Time CoV-Risk 07/19/2020 07/19/2020 07/29/2020 1:24 AM EDT Assessment Noted Time PHQ-2 Depression Total Score: 0 01/05/20 18 10:38 AM EDT documented as of this encounter Care Teams Archives Technician Relationship Specialty Start Date End Date Anthony Tam MD 40 [place] [address] PCP - General Internal Medicine 01/19/17 11/23/19 Anthony Tam MD 40 [place] [address] PCP - General Internal Medicine 11/24/19 Roge Car DO [address] [place] [address] [email or web address] Primary Oncologist Hematology and Oncology 03/24/18 Anthony Tam MD 40 [place] [address] [email or web address] Insurance Assigned Provider 06/12/18 11/15/22 Gomez Cunha MD [address] [place] [address], [facility] [address] [place] [address] [email or web address] Obstetrics and Gynecology 01/26/23 documented as of this encounter Additional Source Comments The information contained in this document represents components of the legal health record. It is not the complete legal health record.[facility]
--- OUTSIDE RECORDS SUMMARY | 2024-12-02 15:29 | XMS_ITS | Encounter Summary ---
Author Organization [facility] Address [address] [place] [address] Phone Care Team Providers Care Orbitread Operator Name Role Phone Anthony Tam MD Primary Care Provider [phone] Anthony Tam MD Unavailable [phone] Roge Car DO Unavailable [phone] Anthony Tam MD Unavailable [phone] Anthony Tam MD Primary Care Provider [phone] Gomez Cunha MD Unavailable [phone] Encounter Details Date Type Department Care Team (Late st Contact Info) Description 04/17/2017 Ancillary Orders [facility] Internal Medicine 40 [place], [place] [phone] Anthony Tam MD 40 [place], [place] [phone] [email or web address] Breast screening Social History Tobacco Use Types [...] Description 01/03/2025 3:30 PM EDT Office Visit [facility] 22 [facility] 3rd Floor, [address] [place], [place] [phone] Vanessa Lomax DNP 22 [facility], [address] [place], [place] [phone] 01/09/2025 3:30 PM EST Office Visit [facility] Internal Medicine [address] [place], [place] [phone] Anthony Tam MD 40 [place], [place] [phone] documented as of this encounter Results * BI MAMMOGRAM SCREENING WITH TOMOSYNTHESIS WITH CAD (BILATERAL) (05/28/2017 9:27 AM EDT) Anatomical Region Laterality Modality Breast Left, Breast Right, Breast Bilateral Bila teral Mammography 05/28/2017 9:44 AM EDT Impressions 05/28/2017 9:46 AM EDT No mammographic evidence of malignancy. BI-RADS CATEGORY: 1 - Negative. DENSITY: The breast tissue is almost entirely fat. POS - [id number] Narrative 05/28/2017 9:46 AM EDT Standard digital [...] tissue is almost entirely fat. POS - [id number] Anthony Tam MD IMG MG EXAMS Final [...] documented as of this encounter Care Teams Orbitread Operator Relationship Specialty Start Date End Date Anthony Tam MD 40 [place] [address] PCP - General Internal Medicine 01/19/17 11/23/19 Anthony Tam MD 40 [place] [address] PCP - General Internal Medicine 11/24/19 Anthony Tam MD 40 [place] [address] Insurance Assigned Provider 05/02/17 01/09/18 Roge Car DO [address] [place] [address] [email or web address] Primary Oncologist Hematology and Oncology 03/24/18 Anthony Tam MD [address] [place] [address] [email or web address] Insurance Assigned Provider 06/12/18 11/15/22 Gomez Cunha MD [address] [place] [address], [facility] [address] [place] [address] [email or web address] Obstetrics and Gynecology 01/26/23 documented as of this encounter Additional Source Comments The information contained in this document represents components of the legal health record. It is not the complete legal health record.[facility]
--- OUTSIDE RECORDS SUMMARY | 2024-12-02 15:29 | XMS_ITS | Encounter Summary ---
Author Organization [facility] Address [address] [place] [address] Phone Care Team Providers Care Fur Stretcher Name Role Phone Anthony Tam MD Primary Care Provider [phone] Anthony Tam MD Unavailable [phone] Roge Car DO Unavailable [phone] Anthony Tam MD Unavailable [phone] Anthony Tam MD Primary Care Provider [phone] Gomez Cunha MD Unavailable [phone] Encounter Details Date Type Department Care Team (Late st Contact Info) Description 04/08/2017 Procedure Pass [facility], [address] [address] Social History Tobacco Use Types Packs/Day Years [...] Description 01/03/2025 3:30 PM EDT Office Visit [facility] [address] [place] [address] 3rd Floor, [address] [place] [address] Vanessa Lomax, BENIGNO 22 [facility], [address] [place] [address] 01/09/2025 3:30 PM EST Office Visit [facility] Internal Medicine 40 [place], [place] [phone] Anthony Tam MD 40 [place], [place] [id number] documented as of this encounter Visit Diagnoses Not on filedocumented in this encounter Additional Health Concerns Infection Onset Date Last Indicated Resolved Time CoV-Risk 07/19/2020 07/19/2020 07/29/2020 1:24 AM EDT Assessment Noted Time PHQ-2 Depression Total Score: 0 01/20/20 17 11:33 AM EST documented as of this encounter Care Teams Fur Stretcher Relationship Specialty Start Date End Date Anthony Tam MD 40 [place] [address] PCP - General Internal Medicine 01/19/17 11/23/19 Anthony Tam MD 40 [place] [address] PCP - General Internal Medicine 11/24/19 Anthony Tam MD 40 [place] [address] Insurance Assigned Provider 05/02/17 01/09/18 Roge Car DO [address] [place] [address] [email or web address] Primary Oncologist Hematology and Oncology 03/24/18 Anthony Tam MD [address] [place] [address] [email or web address] Insurance Assigned Provider 06/12/18 11/15/22 Gomez Cunha MD [address] [place] [address] 102 [place] [address] [email or web address] Obstetrics and Gynecology 01/26/23 documented as of this encounter Additional Source Comments The information contained in this document represents components of the legal health record. It is not the complete legal health record.[facility]
--- OUTSIDE RECORDS SUMMARY | 2024-12-02 15:29 | XMS_ITS | Encounter Summary ---
Author Organization [facility] Address [address] [place] [address] Phone Care Team Providers Care Base Manager Name Role Phone JocelineRoge DO Unavailable [phone] Anthony Tam MD Unavailable [phone] Anthony Tam MD Primary Care Provider [phone] Gomez Cunha MD Unavailable [phone] Encounter Details Date Type Department Care Team (Late st Contact Info) Description 11/24/2019 Procedure Pass [facility], [address] [address] Social History Tobacco Use Types Packs/Day Years [...] high school, GED, job training, learning the Belarusian language, technical skills, or developing parenting skills)? [...] Description 01/03/2025 3:30 PM EDT Office Visit [facility] [address] [place] [address] 3rd Floor, [address] [place] [address] Vanessa Lomax, BENIGNO 22 [facility], [address] [address] 01/09/2025 3:30 PM EST Office Visit [facility] [place] Internal Medicine 40 [place] [address] Anthony Tam MD 40 [place] [address] documented as of this encounter Visit Diagnoses Not on filedocumented in this encounter Additional Health Concerns Infection Onset Date Last Indicated Resolved Time CoV-Risk 07/19/2020 07/19/2020 07/29/2020 1:24 AM EDT Assessment Noted Time PHQ-2 Depression Total Score: 0 11/06/19 19 12:59 PM EDT documented as of this encounter Care Teams Base Manager Relationship Specialty Start Date End Date Anthony Tam MD 40 [place] [address] [email or web address] PCP - General Internal Medicine 11/24/19 Roge Car DO [address] [place] [address] [email or web address] Primary Oncologist Hematology and Oncology 03/24/18 Anthony Tam MD 40 [place] [address] [email or web address] Insurance Assigned Provider 06/12/18 11/15/22 Gomez Cunha MD [address] [place] [address] [email or web address] Obstetrics and Gynecology 01/26/23 documented as of this encounter Additional Source Comments The information contained in this document represents components of the legal health record. It is not the complete legal health record.[facility]
--- OUTSIDE RECORDS SUMMARY | 2024-12-02 15:29 | XMS_ITS | Encounter Summary ---
Author Organization [facility] Address [address] [place] [address] Phone Care Team Providers Care Tool Maker Bench Name Role Phone Joceline Roge Ji DO Unavailable [phone] Anthony Tam MD Primary Care Provider [phone] Gomez Cunha MD Unavailable [phone] Encounter Details Date Type Department Care Team (Latest Contact Info) Description 12/15/2022 Transcribe Orders Virtual Department [address] [place] [address] Anthony Tam MD 40 [place] [address] [email or web address] Breast screening (Primary Dx) Social History Tobacco [...] Description 01/03/2025 3:30 PM EDT Office Visit [facility] [address] [place] [address] 3rd Floor, [address] [place] [address] Vanessa Lomax, BENIGNO 22 [facility], [address] [place] [address] 01/09/2025 3:30 PM EST Office Visit [facility] Internal Medicine 40 [place] [address] Anthony Tma MD 40 [place] [address] [email or web address] documented as of this encounter Results * [...] documented as of this encounter Care Teams Tool Maker Bench Relationship Specialty Start Date End Date Anthony Tam MD 40 [place] [address] [email or web address] PCP - General Internal Medicine 11/24/19 Roge Car DO [address] [place] [address] [email or web address] Primary Oncologist Hematology and Oncology 03/24/18 Gomez Cunha MD [address] [place] [address] 102 [place] [address] [email or web address] Obstetrics and Gynecology 01/26/23 documented as of this encounter Additional Source Comments The information contained in this document represents components of the legal health record. It is not the complete legal health record.[facility]
--- OUTSIDE RECORDS SUMMARY | 2024-12-02 15:29 | XMS_ITS | Encounter Summary ---
Author Organization [facility] Address [address] [place] [address] [place] [address] Phone Care Team Providers Care Electricity Trading Analyst Name Role Phone JocelineRoge DO Unavailable [phone] Anthony Tam MD Unavailable [phone] Anthony Tam MD Primary Care Provider [phone] Gomez Cunha MD Unavailable [phone] Encounter Details Date Type Department Care Team (Late st Contact Info) Description 02/25/2022 Procedure Pass Non-Invasive Cardiology 30 [place] [address] Social History Tobacco Use Types Packs/Day Years [...] high school, GED, job training, learning the Liberian language, technical skills, or developing parenting skills)? [...] Description 01/03/2025 3:30 PM EDT Office Visit [facility] [address] [place] [address] 3rd Floor, [address] [place] [address] Vanessa Lomax, BENIGNO 22 [facility], [address] [place] [address] 01/09/2025 3:30 PM EST Office Visit [facility] [place] Internal Medicine 40 [place] [address] Anthony Tam MD 40 [place] [address] [email or web address] documented as of this encounter Visit Diagnoses Not on filedocumented in this encounter Additional Health Concerns Assessment Noted Time PHQ-2 Depression Total Score: 0 02/11/20 22 7:59 PM EST documented as of this encounter Care Teams Electricity Trading Analyst Relationship Specialty Start Date End Date Anthony Tam MD 40 [place] [address] PCP - General Internal Medicine 11/24/19 Roge Car DO [address] [place] [address] [email or web address] Primary Oncologist Hematology and Oncology 03/24/18 Anthony Tam MD 40 [place] [address] Insurance Assigned Provider 06/12/18 11/15/22 Gomez Cunha MD [address] [place] [address] Obstetrics and Gynecology 01/26/23 documented as of this encounter Additional Source Comments The information contained in this document represents components of the legal health record. It is not the complete legal health record.[facility]
--- OUTSIDE RECORDS SUMMARY | 2024-12-02 15:29 | XMS_ITS | Encounter Summary ---
Author Organization [facility] Address [address] [place] [address] Phone Care Team Providers Care Plasterer Spray Gun Name Role Phone Anthony Tam MD Primary Care Provider [phone] Anthony Tam MD Unavailable [phone] Roge Car DO Unavailable [phone] Anthony Tam MD Unavailable [phone] Anthony Tam MD Primary Care Provider [phone] Gomez Cunha MD Unavailable [phone] Reason for Referral * MRI/CAT Scan - Closed Specialty Diagnoses / Procedures Referred By Contac t Referred To Contact Radiology Diagnoses Dizziness Concussion without loss of consciousness, initial encounter Other complicated headache syndrome Procedures MRI Brain Anthony Tam MD Phone: tel: fax: [email or web address] Referral ID Status Reason Start Date Expiration Date Visits Re quested Visits Authorized [id number] Closed 04/08/2017 06/06/2017 1 1 Encounter Details Date Type Department Care Team (Latest Contact Info) Description 04/08/2017 Ancillary Orders [facility] Internal Medicine 40 [facility] [place] [address] Anthony Tam MD 40 [place] [address] [email or web address] Dizziness; Concussion without loss of consciousness, initial [...] Description 01/03/2025 3:30 PM EDT Office Visit [facility] [address] [place] [address] 3rd Floor, [address] [place] [address] Vanessa Lomax, BENIGNO 22 [facility], [address] [address] 01/09/2025 3:30 PM EST Office Visit [facility] Internal Medicine [address] [place] [address] Anthony Tam MD [address] [place] [address] [email or web address] documented as of this encounter Results * MRI BRAIN WITHOUT CONTRAST (04/17/2017 11:49 AM EST) Anatomical Region Laterality Modality Head Magnetic Resonan ce 04/17/2017 12:2 8 PM EST Impressions 04/17/2017 1:04 PM EST No acute intracranial hemorrhage, mass, or infarction is detected. Mild cerebellar tonsillar ectopia again noted. POS - [id number] Edited by: Joanna Sahu on 04/17/2017 12:51 [...] Mildcerebellar tonsillar ectopia again noted. POS - [id number] Edited by: Joanna Sahu on 04/17/2017 12:51 [...] documented as of this encounter Care Teams Plasterer Spray Gun Relationship Specialty Start Date End Date Anthony Tam MD 40 [place] [address] [email or web address] PCP - General Internal Medicine 01/19/17 11/23/19 Anthony Tam MD 40 [place] [address] [email or web address] PCP - General Internal Medicine 11/24/19 Anthony Tam MD 40 [place] [address] [email or web address] Insurance Assigned Provider 05/02/17 01/09/18 Roge Car DO [address] [place] [address] [email or web address] Primary Oncologist Hematology and Oncology 03/24/18 Anthony Tam MD 40 [place] [address] [email or web address] Insurance Assigned Provider 06/12/18 11/15/22 Gomez Cunha MD [address] [place] [address], [facility] [address] [place] [address] [email or web address] Obstetrics and Gynecology 01/26/23 documented as of this encounter Additional Source Comments The information contained in this document represents components of the legal health record. It is not the complete legal health record.[facility]
--- OUTSIDE RECORDS SUMMARY | 2024-12-02 15:29 | XMS_ITS | Encounter Summary ---
Author Organization [facility] Address [facility] [employer] [facility] [address] [place] [address] Phone Care Team Providers Care Sales Team Manager Name Role Phone Anthony Tam MD Primary Care Provider [phone] Roge Car DO Unavailable [phone] Anthony Tam MD Unavailable Anthony Tam MD Primary Care Provider [phone] Gomez Cunha MD Unavailable Encounter Details Date Type Department Care Team (Latest Contact Info) Description 09/07/2018 Transcribe Orders [facility] Laboratory 30 [place] [address] Roge Car DO 30 [place] [address] [email or web address] Screening for unspecified condition (Primary Dx) [...] high school, GED, job training, learning the Slovenian language, technical skills, or developing parenting skills)? [...] Description 01/03/2025 3:30 PM EDT Office Visit [facility] [address] [place] [address] 3rd [facility], [address] [place] [address] Vanessa Lomax, BENIGNO [address] [place] [address], [address] [address] 01/09/2025 3:30 PM EST Office Visit [facility] [place] Internal Medicine 40 [place] [address] Anthony Tam MD 40 [place] [address] documented as of this encounter Visit Diagnoses Diagnosis Screening for unspecified condition- Primary documented in this encounter Additional Health Concerns Infection Onset Date Last Indicated Resolved Time CoV-Risk 07/19/2020 07/19/2020 07/29/2020 1:24 AM EDT Assessment Noted Time PHQ-2 Depression Total Score: 0 06/02/19 8:42 AM EDT documented as of this encounter Care Teams Sales Team Manager Relationship Specialty Start Date End Date Anthony Tam MD 40 [place] [address] [email or web address] PCP - General Internal Medicine 01/19/17 11/23/19 Anthony Tam MD 40 [place] [address] PCP - General Internal Medicine 11/24/19 Roge Car DO [address] [place] [address] [email or web address] Primary Oncologist Hematology and Oncology 03/24/18 Anthony Tam MD 40 [place] [address] [email or web address] Insurance Assigned Provider 06/12/18 11/15/22 Gomez Cunha MD [address] [place] [address] [email or web address] Obstetrics and Gynecology 01/26/23 documented as of this encounter Additional Source Comments The information contained in this document represents components of the legal health record. It is not the complete legal health record.[facility]
--- OUTSIDE RECORDS SUMMARY | 2024-12-02 15:29 | XMS_ITS | Encounter Summary ---
Author Organization [facility] Address [address] [place] [address] [place] [address] Phone Care Team Providers Care Exchange Engineer Name Role Phone Joceline Roge Ji DO Unavailable [phone] Anthony Tam MD Primary Care Provider [phone] Gomez Cunha MD Unavailable [phone] Encounter Details Date Type Department Care Team (Late st Contact Info) Description 11/15/2024 Orders Only [facility] Internal Medicine 40 [place] [address] Provider, MD Gerardo [address] [place] [address] Social History Tobacco Use Types [...] high school, GED, job training, learning the Fijian language, technical skills, or developing parenting skills)? [...] learning more? Yes 01/26/2023 Our hospital collaborates [facility] community organizations that help patients sign up for SNAP and access healthy nutritious foods. Can we give your contact information to our community partner so that they can reach out and help you enroll in SNAP? Yes 01/26/2023 Benefits received from [facility]? Not on file 01/08 WIC is a [...] Description 01/03/2025 3:30 PM EDT Office Visit [facility] [address] [place] [address] 3rd Floor, [address] [place] [address] Vanessa Lomax, BENIGNO [address] [place] [address], [address] [address] 01/09/2025 3:30 PM EST Office Visit [facility] Internal Medicine [address] [place] [address] Anthony Tam MD 40 [place] [address] documented as of this encounter Procedures Procedure [...] documented as of this encounter Care Teams Exchange Engineer Relationship Specialty Start Date End Date Anthony Tam MD 40 [place] [address] [email or web address] PCP - General Internal Medicine 11/24/19 Roge Car DO [address] [place] [address] [email or web address] Primary Oncologist Hematology and Oncology 03/24/18 Gomez Cunha MD [address] [place] [address] 102 [place] [address] [email or web address] Obstetrics and Gynecology 01/26/23 documented as of this encounter Additional Source Comments The information contained in this document represents components of the legal health record. It is not the complete legal health record.[facility]
--- OUTSIDE RECORDS SUMMARY | 2024-12-02 15:29 | XMS_ITS | Encounter Summary ---
Author Organization [facility] Address [facility] [address] [place] [address] Phone Care Team Providers Care Die Finisher Forging Name Role Phone Roge Car DO Unavailable [phone] Anthony Tam MD Primary Care Provider [phone] Gomez Cunha MD Unavailable [phone] Encounter Details Date Type Department Care Team (Late st Contact Info) Description 12/15/2022 Procedure Pass [facility], [address] [address] Social History Tobacco Use Types Packs/Day Years [...] Description 01/03/2025 3:30 PM EDT Office Visit [facility] [address] [place] [address] 3rd Floor, [address] [place] [address] Vanessa Lomax, BENIGNO 22 [facility], [address] [place] [address] 01/09/2025 3:30 PM EST Office Visit [facility] Internal Medicine 40 [place] [address] Anthony Tam MD 40 [place] [address] [email or web address] documented as of this encounter Visit Diagnoses Not on filedocumented in this encounter Additional Health Concerns Assessment Noted Time PHQ-2 Depression Total Score: 0 01/27/20 23 2:24 PM EST documented as of this encounter Care Teams Die Finisher Forging Relationship Specialty Start Date End Date Anthony Tam MD 40 [place] [address] [email or web address] PCP - General Internal Medicine 11/24/19 Roge Car DO [address] [place] [address] [email or web address] Primary Oncologist Hematology and Oncology 03/24/18 Gomez Cunha MD [address] [place] [address] [email or web address] Obstetrics and Gynecology 01/26/23 documented as of this encounter Additional Source Comments The information contained in this document represents components of the legal health record. It is not the complete legal health record.[facility]
--- OUTSIDE RECORDS SUMMARY | 2024-12-02 15:30 | XMS_ITS | Encounter Summary ---
Author Organization [facility] Address [address] [place] [address] Phone Care Team Providers Care Environmental Field Technician Name Role Phone Roge Car DO Unavailable [phone] Anthony Tam MD Unavailable [phone] Anthony Tam MD Primary Care Provider [phone] Gomez Cunha MD Unavailable [phone] Encounter Details Date Type Department Care Team (Late st Contact Info) Description 10/23/2020 Procedure Pass [facility] [address] [place] [address] Social History Tobacco Use Types Packs/Day Years [...] Description 01/03/2025 3:30 PM EDT Office Visit [facility] [address] [place] [address] 3rd Floor, [address] [place] [address] Vanessa Lomax, BENIGNO 22 [facility], [address] [address] 01/09/2025 3:30 PM EST Office Visit [facility] Internal Medicine 40 [place] [address] Anthony Tam MD 40 [place] [address] [email or web address] documented as of this encounter Visit Diagnoses Not on filedocumented in this encounter Additional Health Concerns Assessment Noted Time PHQ-2 Depression Total Score: 1 02/14/20 20 10:14 AM EST documented as of this encounter Care Teams Environmental Field Technician Relationship Specialty Start Date End Date Anthony Tam MD 40 [place] [address] PCP - General Internal Medicine 11/24/19 Roge Car DO [address] [place] [address] [email or web address] Primary Oncologist Hematology and Oncology 03/24/18 Anthony Tam MD 40 [place] [address] Insurance Assigned Provider 06/12/18 11/15/22 Gomez Cunha MD [address] [place] [address] Obstetrics and Gynecology 01/26/23 documented as of this encounter Additional Source Comments The information contained in this document represents components of the legal health record. It is not the complete legal health record.[facility]
--- OUTSIDE RECORDS SUMMARY | 2024-12-02 15:30 | XMS_ITS | Encounter Summary ---
Author Organization [facility] Address [address] [place] [address] Phone Care Team Providers Care Building Maintenance Supervisor Name Role Phone Roge Car DO Unavailable [phone] Anthony Tam MD Unavailable [phone] Anthony Tam MD Primary Care Provider [phone] Gomez Cunha MD Unavailable [phone] Encounter Details Date Type Department Care Team (Late st Contact Info) Description 10/23/2020 Procedure Pass Non-Invasive Cardiology [address] [place] [address] Social History Tobacco Use Types Packs/Day Years [...] high school, GED, job training, learning the American language, technical skills, or developing parenting skills)? [...] Description 01/03/2025 3:30 PM EDT Office Visit [facility] [address] [place] [address] 3rd Floor, [address] [place] [address] Vanessa Lomax, BENIGNO 22 [facility], [address] [address] 01/09/2025 3:30 PM EST Office Visit [facility] Internal Medicine [address] [place] [address] Anthony Tam MD [address] [place] [address] [email or web address] documented as of this encounter Visit Diagnoses Not on filedocumented in this encounter Additional Health Concerns Assessment Noted Time PHQ-2 Depression Total Score: 1 02/14/20 20 10:14 AM EST documented as of this encounter Care Teams Building Maintenance Supervisor Relationship Specialty Start Date End Date Anthony Tam MD [address] [place] [address] PCP - General Internal Medicine 11/24/19 Roge Car DO [address] [place] [id number] [email or web address] Primary Oncologist Hematology and Oncology 03/24/18 Anthony Tam MD [address] [place] [address] Insurance Assigned Provider 06/12/18 11/15/22 Gomez Cunha MD [address] [place] [phone] Obstetrics and Gynecology 01/26/23 documented as of this encounter Additional Source Comments The information contained in this document represents components of the legal health record. It is not the complete legal health record.[facility]
== END 2024-12-02 14:33 | disposition home or self-care (01) ==
LOC: HO.HOSX 14:32
DX: S62.631B Displaced fracture of distal phalanx of left index finger, initial encounter for open fracture (principal); X58.XXXA Exposure to other specified factors, initial encounter
CPT/HCPCS: 73130

== ENCOUNTER → 2024-12-02 14:38 | Outpatient (BNV) | payer BC, SELFPAY | PROVIDERS: Visit Provider Radiology Diagnostic Radiology | DX: M79.642 Pain in left hand (principal) | CPT/HCPCS: 73130 ==

== ENCOUNTER 2024-12-14 09:11 | Outpatient (REF) | payer BC, SELFPAY ==
--- NOTE | ~2024-12-14 | XR_ITS ---
EXAMINATION: XR HAND, LEFT CLINICAL INFORMATION: M79.642 - Pain in left hand COMPARISON: Multiple priors, latest 12/02/2024 TECHNIQUE: PA, lateral, and oblique views of the left hand. FINDINGS: Again seen is a fracture of the dorsal aspect of the base of the second distal phalanx. The fracture plane is ill-defined, as visualized on the oblique view. No new acute fracture seen. No significant joint space narrowing otherwise. No abnormal soft tissue calcification. Normal bone mineralization. XR/XR hand LT min 3V IMPRESSION: Fracture of the dorsal aspect of the proximal base of the second distal phalanx. Electronically signed by: Derrell Rosa MD 12/14/2024 11:11 AM EDT
== END 2024-12-14 09:12 | disposition home or self-care (01) ==
LOC: HO.HOSX 09:11
PROVIDERS: Visit Provider Orthopaedic Surgery
DX: S62.631D Displaced fracture of distal phalanx of left index finger, subsequent encounter for fracture with routine healing (principal); F10.20 Alcohol dependence, uncomplicated; F17.210 Nicotine dependence, cigarettes, uncomplicated; X58.XXXD Exposure to other specified factors, subsequent encounter
CPT/HCPCS: 73130

== ENCOUNTER 2024-12-14 09:54 | Outpatient (AMB) | payer BC, SELFPAY ==
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
[2024-12-14 10:27] VITALS: BMI 39.5
== END 2024-12-14 11:22 | disposition home or self-care (01) ==
LOC: HO.HOS 09:54
PROVIDERS: Visit Provider Orthopaedic Surgery
DX: S62.631B Displaced fracture of distal phalanx of left index finger, initial encounter for open fracture (principal); F10.20 Alcohol dependence, uncomplicated; F17.200 Nicotine dependence, unspecified, uncomplicated
CPT/HCPCS: 99024

== ENCOUNTER → 2024-12-14 09:55 | Outpatient (BNV) | payer BC, SELFPAY | PROVIDERS: Visit Provider Radiology Diagnostic Ultrasound | DX: S62.631G Displaced fracture of distal phalanx of left index finger, subsequent encounter for fracture with delayed healing (principal) | CPT/HCPCS: 73130 ==

== ENCOUNTER 2025-01-13 10:37 | Outpatient (AMB) | payer BC, SELFPAY ==
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
[2025-01-13 10:58] VITALS: BMI 39.5
--- OUTSIDE RECORDS SUMMARY | 2025-01-13 12:33 | XMS_ITS | Clinical Summary ---
Author Organization [facility] Address [address] [place] [address] Phone Care Team Providers Care Supervisor Ticket Sales Name Role Phone Anthony Tam MD Primary Care Provider Allergies No known active allergies Medications No [...] Health Maintenance Due Date Last Done Comments Colorectal Cancer Screening: Colonoscopy 1976 Hepatitis B Vaccines (1 of 3 - 19+ 3-dose series) 01/30/1995 Cervical Cancer Screening: Pap Smear 01/30/1997 Pneumococcal Vaccine: Pediatrics (0 to 5 Years) and At-Risk Patients (6 to 49 Years) (2 of 2 - PCV) 02/16/2021 02/17/2020 DTaP,Tdap,and Td Vaccines (2 - Td or Tdap) 03/06/2024 03/06/2014 Depression Screening 03/09/2024 HIV Screening 05/02/2024 Social Influencers of Health Screening 05/02/2024 COVID-19 Vaccine (3 - 2024- season) 2024 04/30/2020, 04/09/2020 Influenza Vaccine (#1) 2024 , 02/13/2022, 12/21/2020, Additional history exists Breast Cancer Screening 02/16/2025 02/16/2023 Cholesterol Screening (Lipid Panel) 01/27/2028 01/26/2023 RSV Immunization Adult Patients (1 - 1-dose 75+ series) 01/30/2051 Hepatitis C Screening Completed 06/29/2020 HPV Vaccines Completed 01/18/2021, 0607/2020, 06/29/2020 HIB Vaccines Aged Out No longer [...] patient's age to complete this topic Insurance [facility] Care Teams Supervisor Ticket Sales Relationship Specialty Start Date End Date Anthony Tam MD [address] [place] [id number] PCP - General Internal Medicine 05/02/24
== END 2025-01-13 11:14 | disposition home or self-care (01) ==
LOC: HO.HOS 10:38
DX: S62.631B Displaced fracture of distal phalanx of left index finger, initial encounter for open fracture (principal); F10.20 Alcohol dependence, uncomplicated; F17.200 Nicotine dependence, unspecified, uncomplicated
CPT/HCPCS: 99024